=== PATIENT | male | born 1940 | race Caucasian/White ===

== ENCOUNTER → 2018-05-13 | Outpatient (CLI) | payer MEDICARE ==
[2018-05-13] MEDS: IOHEXOL 300 MG/ML 10ML VIAL. IV ONE (15:29)
--- NOTE | 2018-05-13 17:19 | KCIC ---
Chest CT with and without contrast Clinical indications: Lung nodule. COPD. Shortness of air. TECHNIQUE: Noncontrast helical CT scanning of the chest was performed. After IV infusion of 95 cc of Omnipaque 300, repeat helical CT scanning of the chest was performed. PQRS compliance Statement One or more of the following individualized dose reduction techniques were utilized for this study: 1. Automated exposure control 2. Adjustment of the mA and/or kV according to patient size 3. Use of iterative reconstruction technique COMPARISON: May 21, 2016. FINDINGS: Calcified atheromatous disease of the thoracic aorta is seen. No focal aneurysmal dilatation or dissection is evident. Sternotomy is evident. Postoperative changes of the aortic valve are seen. The heart size is normal and no pericardial effusion is seen. Calcified atheromatous disease of the coronary arteries is seen. No enlarged thoracic lymphadenopathy is evident. Calcified lymph nodes are seen within the mediastinum and right hilum due to old granulomatous disease. Calcified pleural plaques are seen posteriorly on the right side. This could be related to asbestos exposure or secondary to previous surgery or trauma. There is a round right lower lobe lung consolidation with a prominent calcification. This was seen previously and measures just under 6 cm in greatest dimension. It is unchanged in size. This is consistent with round atelectasis. Right apical scarring is stable. Nodular scarring of the right lung base has not changed significantly. Mild left apical scarring is stable. There is a new focus of round lung infiltrate within the posterior basal segment of the left lower lobe. It measures 5.5 cm transversely. Calcifications are seen within it. There is another lobe of round infiltrate seen extending anteriorly along the pleura in the left lower lobe in the same area which measures about 4.1 cm. These areas may represent round atelectasis but infiltrate such as pneumonia or neoplasia are in the differential diagnosis. There is a small loculated pleural effusion now present within the posterior lateral left costophrenic angle. No pneumothorax is seen. The proximal bronchial tree is patent. No adrenal mass is evident. No osteolytic process is evident. IMPRESSION: No change in round atelectasis of the right lower lobe. There is new finding of a bilobed pleural-based consolidative lung infiltrate within the posterior lateral aspect of the left lower lobe. There is a small loculated pleural effusion here. There is parietal and visceral pleural enhancement here. Therefore, this is consistent with a small complex pleural fluid collection or exudate. The infiltrates could represent additional areas of round atelectasis but due to the new appearance, pneumonia or neoplasm need to be considered. Recommend a PET/CT for further evaluation. Calcified atheromatous disease of coronary arteries. Normal heart size. Electronically signed by: Manan Mornoe MD (05/13/2018 5:16 PM) [facility]
== END | disposition home or self-care (01) ==
LOC: KCIC CT 14:26
PROVIDERS: ATTEND Family Medicine
DX: J44.9 Chronic obstructive pulmonary disease, unspecified (principal); I25.10 Atherosclerotic heart disease of native coronary artery without angina pectoris; J90 Pleural effusion, not elsewhere classified; I10 Essential (primary) hypertension; E78.5 Hyperlipidemia, unspecified; R91.8 Other nonspecific abnormal finding of lung field; Z95.0 Presence of cardiac pacemaker; Z95.1 Presence of aortocoronary bypass graft
CPT/HCPCS: 71270; Q9967

== ENCOUNTER → 2018-06-20 | Outpatient (CLI) | payer MEDICARE ==
--- NOTE | 2018-06-20 15:39 | RAD ---
CT CHEST WO CONTRAST Indication: Lung nodule Technique: Noncontrast CT imaging was performed of the chest, multiplanar reconstruction images submitted. One or more of the following individualized dose reduction techniques were utilized for this examination: 1. Automated exposure control 2. Adjustment of the mA and/or kV according to patient size 3. Use of iterative reconstruction technique. Comparison: May 13, 2018 Findings: There is again very small pleural effusion at the left lung base which is probably slightly loculated, slightly decreased in size. There is adjacent subpleural density associated with some subtle calcification, greatest dimension about 3 cm AP by 5 cm transverse overall similar in appearance. There is similar fibrotic change of the right hemithorax. There is again calcified pleural plaque as well as peripheral subpleural density extending to the pleural surface of the right lower lobe with associated internal focus of calcification overall stable, about 5 cm transverse by 3.3 cm AP. There is centrilobular emphysema. There is no pneumothorax. There has been median sternotomy. There is coronary calcification. There are calcified mediastinal nodes. There is no new abnormality of the limited visualized abdominal visceral organs. IMPRESSION: 1. There is persistent peripheral left lower lobe density abutting the pleural surface and adjacent small likely slightly loculated pleural effusion of the left lung base which is somewhat smaller. There could be component of new round atelectasis although continued surveillance such as in 4 months or PET/CT is recommended. 2. Findings on the right are similar, calcified pleural plaques and likely round atelectasis with associated calcification. There is again centrilobular emphysema. 3. There is coronary calcification. Electronically signed by: David Cai MD (06/20/2018 3:35 PM) [facility]
== END | disposition home or self-care (01) ==
LOC: CT 10:33
PROVIDERS: ATTEND Internal Medicine Pulmonary Disease
DX: J43.2 Centrilobular emphysema (principal); I25.10 Atherosclerotic heart disease of native coronary artery without angina pectoris; J90 Pleural effusion, not elsewhere classified; I10 Essential (primary) hypertension; E78.5 Hyperlipidemia, unspecified; Z95.0 Presence of cardiac pacemaker
CPT/HCPCS: 71250

== ENCOUNTER → 2018-09-16 | Outpatient (CLI) | payer MEDICARE ==
--- NOTE | 2018-09-16 16:13 | RAD ---
Examination: CT CHEST WO CONTRAST History: ABNORMAL CT, INCREASED SHORTNESS OF BREATH Comparison/Correlation: 05/21/2016 CT chest with contrast, 04/23/2018 CT chest without contrast, 06/20/2018 CT chest without contrast Findings: Axial images of chest were obtained without contrast. Sagittal and coronal reformatted images provided. Sternal wires and mediastinal clips noted. Centrilobular emphysema seen. Nonenlarged upper thoracic mediastinal lymph nodes are present. Calcified right paratracheal and precarinal lymph nodes are present. Subcarinal lymph node is present but not enlarged. Posterior basilar pleural thickening noted. Left costophrenic sulcus pleural effusion and atelectasis noted. Right costophrenic sulcus loculated pleural collection is new since the prior exam of 06/20/2008. Posterior basilar pleural thickening and high density which may represent calcification is again seen. Findings of round atelectasis with a calcified nodule produces described again seen. Right pleural effusion which tracks along the major and minor fissure posteriorly is new in the interval. Partially visualized upper abdomen is unremarkable. Impression: Interval development of small right basilar effusion which tracks along the course of the major and minor fissure. No significant change in pulmonary aeration otherwise. Electronically signed by: Oh Brown MD (09/16/2018 3:57 PM) [id number]
== END | disposition home or self-care (01) ==
LOC: CT 10:57
PROVIDERS: ATTEND Internal Medicine Pulmonary Disease
DX: J43.2 Centrilobular emphysema (principal); J90 Pleural effusion, not elsewhere classified; J98.11 Atelectasis
CPT/HCPCS: 71250

== ENCOUNTER → 2018-10-14 | Outpatient (CLI) | payer MEDICARE | END | disposition home or self-care (01) | LOC: LAB 09:14 | PROVIDERS: ATTEND Internal Medicine Pulmonary Disease | DX: R06.02 Shortness of breath (principal) | CPT/HCPCS: 36415; 85379 ==

== ENCOUNTER → 2018-10-17 | Outpatient (CLI) | payer MEDICARE ==
[~2018-10-17] MED LIST: IOHEXOL 350 MG/ML 100 ML VIAL. IV ONE
[2018-10-17 12:08] LABS: CALCIUM 8.9 mg/dL (8.5-10.1); CREATININE 1.4 mg/dL (0.7-1.3); GFR 49.1
--- NOTE | 2018-10-17 12:44 | RAD ---
EXAM: CT chest with contrast - pulmonary embolus protocol CLINICAL HISTORY: Shortness of air, elevated D-dimer COMPARISON: 09/16/2018, 06/20/2018 TECHNIQUE: CT of the chest following the administration of intravenous contrast during the pulmonary arterial phase. Axial, coronal and sagittal reformatted images were generated including MIP images. ---PQRS compliance statement - One or more of the following individualized dose reduction techniques were utilized for this study: 1. Automated exposure control 2. Adjustment of the mA and/or kV according to patient size 3. Use of iterative reconstruction technique--- FINDINGS: CHEST: Diagnostic quality: Suboptimal. Pulmonary emboli: No pulmonary emboli to the level of the proximal subsegmental branches. More peripheral vessels are not well assessed. Right heart strain: None Pulmonary arteries: Normal in caliber. Mild cardiomegaly. Coronary artery calcifications are seen. No pericardial effusion. Aortic calcifications are seen. A few prominent mediastinal and hilar lymph nodes are seen, possibly reactive. In general these are grossly stable to prior CT 09/08/2018. No axillary lymphadenopathy. Small right pleural effusion is seen. Right-sided pleural-based calcifications, likely from prior pleurodesis. Associated right fissural fluid is stable. Linear reticular opacities in the lower lobes bilaterally with wedge-shaped parenchymal airspace opacities likely consolidation or atelectasis. Bilateral emphysematous changes are seen. Visualized Upper abdomen: Upper abdomen is unremarkable. Bones: Degenerative changes of the spine are seen. Changes of median sternotomy are seen. IMPRESSION: 1. Mildly suboptimal contrast bolus timing. Within these constraints, no definite pulmonary emboli to the level of the proximal subsegmental branches. Distal evaluation is limited. 2. Parenchymal opacities bilaterally are grossly stable. The majority of these have associated pleural abnormality and round atelectasis is a consideration however alternatively consolidative process is not excluded. 3. Trace right pleural effusion with fissural fluid, stable. 4. Bilateral emphysematous changes are again seen. 5. Mild cardiomegaly with extensive coronary artery calcifications. Electronically signed by: Darrin Eid MD (10/17/2018 12:40 PM) [facility]
== END | disposition home or self-care (01) ==
LOC: CT 11:17
PROVIDERS: ATTEND Internal Medicine Pulmonary Disease
DX: J98.11 Atelectasis (principal); J43.9 Emphysema, unspecified; I51.7 Cardiomegaly; I25.10 Atherosclerotic heart disease of native coronary artery without angina pectoris; R91.8 Other nonspecific abnormal finding of lung field
CPT/HCPCS: 36415; 71275; 80048; Q9967

== ENCOUNTER → 2021-07-31 | Outpatient (CLI) | payer MEDICARE ==
--- NOTE | 2021-07-31 13:28 | RAD ---
EXAM: RENAL ULTRASOUND CLINICAL HISTORY: Chronic kidney disease COMPARISON: None available. TECHNIQUE: Ultrasound examination of the bilateral kidneys and urinary bladder was performed. FINDINGS: The right kidney measures 11.6 x 5.6 x 5.9 cm . The left kidney measures 10.1 x 5.8 x 5.9 cm. Multipl e cystic structures identified in the bilateral kidneys with the largest measuring 3.4 cm in the righ t kidney. No evidence of hydronephrosis. Urinary bladder is mildly distended. IMPRESSION: 1. Bilateral renal cysts. Electronically signed by: Sebastian Vidal MD (07/31/2021 1:26 PM) [id number]
== END ==
LOC: US 11:01
PROVIDERS: ATTEND Family Medicine
DX: N28.1 Cyst of kidney, acquired (principal); N32.89 Other specified disorders of bladder; N18.32 Chronic kidney disease, stage 3b
CPT/HCPCS: 76770

== ENCOUNTER 2022-01-20 13:16 | Inpatient (IN) | payer MEDICARE ==
[~2022-01-20] VITALS: Ht 193 cm; Wt 106.8 kg
[2022-01-20 13:53] LABS: BASO % 0 % (0-3); EOS % 0 % (0-3); HEMATOCRIT 34.7 % (39.0-53.0); HEMOGLOBIN 11.5 g/dL (13.0-17.5); LYMPH # 1.1 x10^3/uL (1.0-4.8); LYMPH % 7 % (24-48); MEAN CORPUSCULAR HEMOGLOBIN 30 pg (25-35); MEAN CORPUSCULAR HGB CONC 33 g/dL (31-37); MEAN CORPUSCULAR VOLUME 91 fL (79-100); MONO # 0.7 x10^3/uL (0.0-1.1); MONO % 4 % (0-9); NEUT # 14.9 x10^3/uL (1.8-7.7); NEUT % 89 % (31-73); PLATELET COUNT 166 x10^3/uL (140-400); RED BLOOD COUNT 3.81 x10^6/uL (4.30-5.70); RED CELL DISTRIBUTION WIDTH 14.8 % (11.5-14.5); WHITE BLOOD COUNT 16.8 x10^3/uL (4.0-11.0)
[2022-01-20 14:09] LABS: CALCIUM 8.6 mg/dL (8.5-10.1); CREATININE 1.9 mg/dL (0.7-1.3); GFR 34.2; POTASSIUM 4.7 mmol/L (3.5-5.1)
[2022-01-20 14:15] LABS: ALBUMIN 3.8 g/dL (3.4-5.0); ALBUMIN/GLOBULIN RATIO 1.4 (1.0-1.7); MAGNESIUM 1.8 mg/dL (1.8-2.4); TOTAL PROTEIN 6.6 g/dL (6.4-8.2)
[2022-01-20] MEDS: MORPHINE SULFATE 2 MG/ML INJ. IV/SQ PRN ×2 (14:15→15:13)
--- NOTE | 2022-01-20 14:15 | RAD ---
EXAM: XR CHEST 1V 01/20/2022 1:39 PM CLINICAL INDICATION: Cough COMPARISON: CT chest 10/17/2018 TECHNIQUE: AP upright view the chest FINDINGS: There is a new dual-lead pacemaker. There are changes of median sternotomy. The heart is m ildly enlarged. There are airspace opacities in the right greater than left lung base, similar to fin dings on CT chest 10/17/2018. There is a large calcified granuloma in the right lower lobe. Unchanged small pleural effusions or pleural thickening. No pneumothorax. IMPRESSION: Number Airspace opacities in the mid and lower lungs. This is similar to CT chest 10/17/2018 and may b e due to scarring or atelectasis. An acute superimposed process cannot be excluded. 2. Unchanged small pleural effusions or pleural thickening. Electronically signed by: Magnolia Kumar MD (01/20/2022 2:13 PM) [id number]
--- NOTE | 2022-01-20 14:17 | RAD ---
EXAM: XR LT HIP (WITH OR WITHOUT PELVIS) 2 VIEWS 01/20/2022 1:39 PM CLINICAL INDICATION: Pain, no injury COMPARISON: None TECHNIQUE: AP view of the pelvis and AP and frog-leg lateral view of the left hip FINDINGS: No acute fracture. Alignment is normal. There is mild bilateral hip joint space narrowing. No pubic symphysis or sacroiliac joint widening. The mild lumbar degenerative disc disease. IMPRESSION: Mild degenerative joint disease of the hips. No displaced fracture Electronically signed by: Magnolia Kumar MD (01/20/2022 2:15 PM) [id number]
[2022-01-20 14:21] LABS: % LYMPHS 8 % (24-48); % MONOS 5 % (0-10); % SEGS 87 % (35-66)
[2022-01-20 14:22] LABS: ANISOCYTOSIS SLIGHT; PLT ESTIMATE ADEQUATE (ADEQUATE)
--- NOTE | 2022-01-20 14:27 | PHYS DOC ---
Past Medical History Past Surgical History: Coronary Bypass Surgery, Pacemaker General Adult EDM: Chief Complaint: SHORTNESS OF BREATH HPI: HPI: Patient is a 81 year old male with history of COPD currently on oxygen 2 L, CAD, pacemaker, kidney disease, presenting to the ED today complaining of cough, shortness of breath, nasal congestion, symptoms of been going on for a couple days. Patient is not specific about how long. He is also complaining of bilateral lower extremity swelling worse on the right side for couple days. He states he was seen by the PCP a couple days ago and was put on furosemide. He states he has not started taking the medications. Denies any fever. Patient is also complaining of 6 out of 10 left hip pain, symptoms have been going on for couple days. Denies any known injury. Describes the pain as sharp and intermittent worse getting in and out of bed. Rates the pain at 6 out of 10. Review of Systems: Review of Systems: Constitutional: Denies fever or chills. [] Eyes: Denies change in visual acuity. [] HENT: Reports nasal congestion Respiratory: Reports cough, shortness of breath Cardiovascular: Denies chest pain or edema. [] GI: Denies abdominal pain, nausea, vomiting, bloody stools or diarrhea. [] : Denies dysuria. [] Musculoskeletal: Reports left hip pain, bilateral lower extremity swelling Integument: Denies rash. [] Neurologic: Denies headache, focal weakness or sensory changes. [] Psychiatric: Denies depression or anxiety. [] Heart Score: C/O Chest Pain: N/A Risk Factors: Risk Factors: DM, Current or recent (<one month) smoker, HTN, HLP, family history of CAD, obesity. Risk Scores: Score 0 - 3: 2.5% MACE over next 6 weeks - Discharge Home Score 4 - 6: 20.3% MACE over next 6 weeks - Admit for Clinical Observation Score 7 - 10: 72.7% MACE over next 6 weeks - Early Invasive Strategies Current Medications: Current Medications Medications (Trade) Dose Ordered Sig/Thanh Start Time Stop Time Status Last Admin Dose Admin Morphine Sulfate (Morphine Sulfate) 2 mg PRN Q15MIN PRN 01/20/22 13:45 01/21/22 13:44 01/20/22 14:15 2 MG Allergies: Allergies: Allergies Coded Allergies Type Severity Reaction Last Updated Verified naproxen Allergy Intermediate rash 05/21/16 Yes Physical Exam: PE: Constitutional: Well developed, well nourished, no acute distress, non-toxic appearance. [] HENT: Normocephalic, atraumatic, bilateral external ears normal, oropharynx moist, no oral exudates, patient sounds congested nasally Eyes: PERRLA, EOMI, conjunctiva normal, no discharge. [] Neck: Normal range of motion, no tenderness, supple, no stridor. [] Cardiovascular:Old healed surgical incision noted midline chest from open heart surgery heart, pacemaker left upper chest rate regular rhythm Lungs & Thorax: Coarse lung sounds Abdomen: Bowel sounds normal, soft, no tenderness, no masses, no pulsatile masses. [] Skin: Warm, dry, no erythema, no rash. [] Back: No tenderness, no CVA tenderness. [] Extremities: No tenderness, no cyanosis, no clubbing, ROM intact, +2 right lower extremity edema, +1 left lower extremity edema, negative Homans' sign bilaterally Neurologic: Alert and oriented X 3, normal motor function, normal sensory function, no focal deficits noted. [] Psychologic: Affect normal, judgement normal, mood normal. [] Current Patient Data: Labs: Laboratory Tests Test 01/20/22 13:40 White Blood Count 16.8 x10^3/uL (4.0-11.0) H Red Blood Count 3.81 x10^6/uL (4.30-5.70) L Hemoglobin 11.5 g/dL (13.0-17.5) L Hematocrit 34.7 % (39.0-53.0) L Mean Corpuscular Volume 91 fL (79-100) Mean Corpuscular Hemoglobin 30 pg (25-35) Mean Corpuscular Hemoglobin Concent 33 g/dL (31-37) Red Cell Distribution Width 14.8 % (11.5-14.5) H Platelet Count 166 x10^3/uL (140-400) Neutrophils (%) (Auto) 89 % (31-73) H Lymphocytes (%) (Auto) 7 % (24-48) L Monocytes (%) (Auto) 4 % (0-9) Eosinophils (%) (Auto) 0 % (0-3) Basophils (%) (Auto) 0 % (0-3) Neutrophils # (Auto) 14.9 x10^3/uL (1.8-7.7) H Lymphocytes # (Auto) 1.1 x10^3/uL (1.0-4.8) Monocytes # (Auto) 0.7 x10^3/uL (0.0-1.1) Eosinophils # (Auto) 0.0 x10^3/uL (0.0-0.7) Basophils # (Auto) 0.0 x10^3/uL (0.0-0.2) Platelet Estimate Pending Sodium Level 138 mmol/L (136-145) Potassium Level 4.7 mmol/L (3.5-5.1) Chloride Level 101 mmol/L (98-107) Carbon Dioxide Level 28 mmol/L (21-32) Anion Gap 9 (6-14) Blood Urea Nitrogen 34 mg/dL (8-26) H Creatinine 1.9 mg/dL (0.7-1.3) H Estimated GFR (Cockcroft-Gault) 34.2 BUN/Creatinine Ratio 18 (6-20) Glucose Level 119 mg/dL (70-99) H Calcium Level 8.6 mg/dL (8.5-10.1) Magnesium Level 1.8 mg/dL (1.8-2.4) Total Bilirubin 1.0 mg/dL (0.2-1.0) Aspartate Amino Transferase (AST) 23 U/L (15-37) Alanine Aminotransferase (ALT) 21 U/L (16-63) Alkaline Phosphatase 98 U/L (46-116) Troponin I High Sensitivity 37 ng/L (4-75) Total Protein 6.6 g/dL (6.4-8.2) Albumin 3.8 g/dL (3.4-5.0) Albumin/Globulin Ratio 1.4 (1.0-1.7) Laboratory Tests 01/20/22 13:40 Laboratory Tests 01/20/22 13:40 Vital Signs: Vital Signs Date Time Temp Pulse Resp B/P (MAP) Pulse Ox O2 Delivery O2 Flow Rate FiO2 01/20/22 14:15 20 95 Nasal Cannula 01/20/22 13:36 98.4 84 142/65 (90) 3.0 98.4 EKG: EKG: [] Radiology/Procedures: Radiology/Procedures: []PROCEDURE: PORTABLE CHEST 1V EXAM: XR CHEST 1V 01/20/2022 1:39 PM CLINICAL INDICATION: Cough COMPARISON: CT chest 10/17/2018 TECHNIQUE: AP upright view the chest FINDINGS: There is a new dual-lead pacemaker. There are changes of median sternotomy. The heart is mildly enlarged. There are airspace opacities in the right greater than left lung base, similar to findings on CT chest 10/17/2018. There is a large calcified granuloma in the right lower lobe. Unchanged small pleural effusions or pleural thickening. No pneumothorax. IMPRESSION: Number Airspace opacities in the mid and lower lungs. This is similar to CT chest 10/17/2018 and may be due to scarring or atelectasis. An acute superimposed process cannot be excluded. 2. Unchanged small pleural effusions or pleural thickening. Electronically signed by: Magnolia Kumar MD (01/20/2022 2:13 PM) [id number] DICTATED and SIGNED BY: MAGNOLIA KUMAR MD DATE: 01/20/22 1409 Course & Med Decision Making: Course & Med Decision Making Pertinent Labs and Imaging studies reviewed. (See chart for details) This is a 81-year-old male patient presented to the ED today with cough, shortness of breath, nasal congestion, left hip pain, bilateral lower extremity swelling, symptoms for couple days. Vitals on arrival to the ED temperature 98.3, heart rate 84, respiration 20 on 3 L of oxygen, O2 sats 96%, blood pressure 142/65 CBC with a WBC of 16.4, hemoglobin 11.5 with hematocrit of 34.7, CMP with creatinine of 1.9, BUN 34, history of chronic kidney disease. BNP 6763 Chest x-ray could not rule out pneumonia, noted for pleural effusion Patient was given furosemide, Rocephin. Spoke with Dr. Yost who accepted patient for admission, routine consult placed for cardiology, ceo & founder. Rakesh Disclaimer: Rakesh Disclaimer: This electronic medical record was generated, in whole or in part, using a voice recognition dictation system. Departure Departure Impression: Primary Impression: CHF exacerbation Qualified Codes: I50.9 - Heart failure, unspecified Additional Impressions: Chronic renal failure Qualified Codes: N18.9 - Chronic kidney disease, unspecified Bilateral pneumonia Qualified Codes: J18.9 - Pneumonia, unspecified organism Pleural effusion Disposition: ADMITTED INPATIENT Condition: STABLE Referrals: RAVEN ELIZABETH (PCP) BERTHA REYES [employer]SEM[employer]ER FINGER BUFFS January 20, 2022 14:27
[2022-01-20] MEDS ORDERED: FUROSEMIDE 40 MG/4 ML VIAL. ONE (15:14)
[2022-01-20] MEDS ORDERED: cefTRIAXone IV Push 1 GM VIAL. IVP ONE (15:15)
--- NOTE | 2022-01-20 15:26 | PDOC1 ---
History and Physical Date of Admission Date of Admission DATE: 01/20/22 TIME: 15:23 Identification/Chief Complaint Chief Complaint Shortness of breath Source Source: Patient History of Present Illness History of Present Illness Patient is a 81-year-old male with past medical history COPD on 2 L, CAD with stents, CABG, who presents to the ED with complaints of acute on chronic shortness of breath for the past few days. He reports associated cough and congestion. States he was seen by his PCP recently for bilateral leg swelling and placed on Lasix, but states he has not filled this medication. States it has been several years since his last COPD exacerbation. Labs on admission showed WBC 16.8, hemoglobin 11.5, hematocrit 35.7, BUN 34, creatinine 1.9, CBG 119, troponin 37, BNP 6763. Chest x-ray in the ED showed airspace opacities in the mid and lower lungs, similar to previous CT in 2019. Due to some complaints of left hip pain, 6/10, and x-ray of his hip showed mild degenerative joint dis ease. He denies any falls or trauma. He received 1 g Rocephin in the ED. Patient's been admitted for further medical management. Past Medical History Past Medical History COPD on 2 L, CAD with stents, CABG, A. fib on Eliquis, HTN, CKD 3 Past Surgical History Past Surgical History CABG, cardiac stents, left knee surgery Family History Family History CAD, CVA, [place] Family History: Coronary Artery Disease Social History Smoke: Quit ALCOHOL: occassional Drugs: None Current Problem List Problem List Problems Medical Problems: (1) Bilateral pneumonia Status: Acute (2) CHF exacerbation Status: Acute (3) Chronic renal failure Status: Acute (4) Pleural effusion Status: Acute Current Medications Current Medications Current Medications Morphine Sulfate (Morphine Sulfate) 2 mg PRN Q15MIN PRN IV/SQ PAIN GREATER THAN 3/10 Last administered on 01/20/22at 15:13; Start 01/20/22 at 13:45; Stop 01/21/22 at 13:44 Furosemide (Lasix) 40 mg DAILY IVP ; Start 01/21/22 at 09:00 Ceftriaxone Sodium (Rocephin) 1 gm 1X ONCE IVP ; Start 01/20/22 at 15:15; Stop 01/20/22 at 15:16; Status DC Ondansetron HCl (Zofran) 4 mg PRN Q8HRS PRN IVP NAUSEA/VOMITING; Start 01/20/22 at 15:30; Stop 01/21/22 at 15:29; Status UNV Fentanyl Citrate (Fentanyl 2ml Vial) 50 mcg PRN Q1HR PRN IVP PAIN; Start 01/20/22 at 15:30; Stop 01/21/22 at 15:29; Status UNV Acetaminophen (Tylenol) 650 mg PRN Q4HRS PRN PO FEVER > 100.3'F; Start 01/20/22 at 15:30; Stop 01/21/22 at 15:29; Status UNV Active Scripts Active Reported No Known Medications Prior To Admisstion (Info) Each 1 Each Allergies Allergies: Coded Allergies: naproxen (Verified Allergy, Intermediate, rash, 05/21/16) mild rash ROS Review of System GENERAL: No history of weight change, weakness or fevers. SKIN: No bruising, hair changes or rashes. EYES: No blurred, double or loss of vision. NOSE AND THROAT: No history of nosebleeds, hoarseness or sore throat. HEART: Denies chest pain, denies palpitations. LUNGS: Shortness of breath and cough. Denies hemoptysis. GASTROINTESTINAL: Denies nausea, vomiting, abdominal pain. GENITOURINARY: Denies dysuria, frequency, urgency, hematuria. NEUROLOGIC: Denies history of numbness, tingling, tremor or weakness. PSYCHIATRIC: Denies anxiety, denies depression. ENDOCRINE: No history of heat or cold intolerance, polyuria or polydipsia. EXTREMITIES: Bilateral leg swelling, left hip pain. Denies muscle weakness or stiffness. Physical Exam Physical Exam General: Alert, Oriented X3, Cooperative, mild distress HEENT: Atraumatic, EOMI Lungs: Bilateral wheezing, bibasilar rales Heart: RRR, systolic murmur, midline sternotomy scar Cardiovascular: S1, S2 Abdomen: Normal bowel sounds, Soft, No tenderness Extremities: +1 bilateral leg edema Skin: No breakdown, No significant lesion Neuro: Normal speech, Sensation intact Psych/Mental Status: Mental status NL, Mood NL Vitals Vitals Vital Signs Date Time Temp Pulse Resp B/P (MAP) Pulse Ox O2 Delivery O2 Flow Rate FiO2 01/20/22 15:13 16 3 Nasal Cannula 01/20/22 13:36 98.4 84 142/65 (90) 3.0 98.4 Labs Labs Laboratory Tests Test 01/20/22 13:40 White Blood Count 16.8 x10^3/uL (4.0-11.0) Red Blood Count 3.81 x10^6/uL (4.30-5.70) Hemoglobin 11.5 g/dL (13.0-17.5) Hematocrit 34.7 % (39.0-53.0) Mean Corpuscular Volume 91 fL (79-100) Mean Corpuscular Hemoglobin 30 pg (25-35) Mean Corpuscular Hemoglobin Concent 33 g/dL (31-37) Red Cell Distribution Width 14.8 % (11.5-14.5) Platelet Count 166 x10^3/uL (140-400) Neutrophils (%) (Auto) 89 % (31-73) Lymphocytes (%) (Auto) 7 % (24-48) Monocytes (%) (Auto) 4 % (0-9) Eosinophils (%) (Auto) 0 % (0-3) Basophils (%) (Auto) 0 % (0-3) Neutrophils # (Auto) 14.9 x10^3/uL (1.8-7.7) Lymphocytes # (Auto) 1.1 x10^3/uL (1.0-4.8) Monocytes # (Auto) 0.7 x10^3/uL (0.0-1.1) Eosinophils # (Auto) 0.0 x10^3/uL (0.0-0.7) Basophils # (Auto) 0.0 x10^3/uL (0.0-0.2) Segmented Neutrophils % 87 % (35-66) Lymphocytes % 8 % (24-48) Monocytes % 5 % (0-10) Platelet Estimate Adequate (ADEQUATE) Anisocytosis Slight Sodium Level 138 mmol/L (136-145) Potassium Level 4.7 mmol/L (3.5-5.1) Chloride Level 101 mmol/L (98-107) Carbon Dioxide Level 28 mmol/L (21-32) Anion Gap 9 (6-14) Blood Urea Nitrogen 34 mg/dL (8-26) Creatinine 1.9 mg/dL (0.7-1.3) Estimated GFR (Cockcroft-Gault) 34.2 BUN/Creatinine Ratio 18 (6-20) Glucose Level 119 mg/dL (70-99) Calcium Level 8.6 mg/dL (8.5-10.1) Magnesium Level 1.8 mg/dL (1.8-2.4) Total Bilirubin 1.0 mg/dL (0.2-1.0) Aspartate Amino Transf (AST/SGOT) 23 U/L (15-37) Alanine Aminotransferase (ALT/SGPT) 21 U/L (16-63) Alkaline Phosphatase 98 U/L (46-116) Troponin I High Sensitivity 37 ng/L (4-75) QJ-Duz-Q-Type Natriuretic Peptide 6763 pg/mL (0-449) Total Protein 6.6 g/dL (6.4-8.2) Albumin 3.8 g/dL (3.4-5.0) Albumin/Globulin Ratio 1.4 (1.0-1.7) Laboratory Tests Test 01/20/22 13:40 White Blood Count 16.8 x10^3/uL (4.0-11.0) Red Blood Count 3.81 x10^6/uL (4.30-5.70) Hemoglobin 11.5 g/dL (13.0-17.5) Hematocrit 34.7 % (39.0-53.0) Mean Corpuscular Volume 91 fL (79-100) Mean Corpuscular Hemoglobin 30 pg (25-35) Mean Corpuscular Hemoglobin Concent 33 g/dL (31-37) Red Cell Distribution Width 14.8 % (11.5-14.5) Platelet Count 166 x10^3/uL (140-400) Neutrophils (%) (Auto) 89 % (31-73) Lymphocytes (%) (Auto) 7 % (24-48) Monocytes (%) (Auto) 4 % (0-9) Eosinophils (%) (Auto) 0 % (0-3) Basophils (%) (Auto) 0 % (0-3) Neutrophils # (Auto) 14.9 x10^3/uL (1.8-7.7) Lymphocytes # (Auto) 1.1 x10^3/uL (1.0-4.8) Monocytes # (Auto) 0.7 x10^3/uL (0.0-1.1) Eosinophils # (Auto) 0.0 x10^3/uL (0.0-0.7) Basophils # (Auto) 0.0 x10^3/uL (0.0-0.2) Segmented Neutrophils % 87 % (35-66) Lymphocytes % 8 % (24-48) Monocytes % 5 % (0-10) Platelet Estimate Adequate (ADEQUATE) Anisocytosis Slight Sodium Level 138 mmol/L (136-145) Potassium Level 4.7 mmol/L (3.5-5.1) Chloride Level 101 mmol/L (98-107) Carbon Dioxide Level 28 mmol/L (21-32) Anion Gap 9 (6-14) Blood Urea Nitrogen 34 mg/dL (8-26) Creatinine 1.9 mg/dL (0.7-1.3) Estimated GFR (Cockcroft-Gault) 34.2 BUN/Creatinine Ratio 18 (6-20) Glucose Level 119 mg/dL (70-99) Calcium Level 8.6 mg/dL (8.5-10.1) Magnesium Level 1.8 mg/dL (1.8-2.4) Total Bilirubin 1.0 mg/dL (0.2-1.0) Aspartate Amino Transf (AST/SGOT) 23 U/L (15-37) Alanine Aminotransferase (ALT/SGPT) 21 U/L (16-63) Alkaline Phosphatase 98 U/L (46-116) Troponin I High Sensitivity 37 ng/L (4-75) IB-Oxd-G-Type Natriuretic Peptide 6763 pg/mL (0-449) Total Protein 6.6 g/dL (6.4-8.2) Albumin 3.8 g/dL (3.4-5.0) Albumin/Globulin Ratio 1.4 (1.0-1.7) Images Images PATIENT: CONRADO VELIZ GACCOUNT: [id number] : 1940 LOCATION: ER AGE: 81 SEX: M EXAM STATUS: REG ER ORD. PHYSICIAN: BERTHA REYES IT TRAINING SPECIALIST REASON: cough PROCEDURE: PORTABLE CHEST 1V EXAM: XR CHEST 1V 01/20/2022 1:39 PM CLINICAL INDICATION: Cough COMPARISON: CT chest 10/17/2018 TECHNIQUE: AP upright view the chest FINDINGS: There is a new dual-lead pacemaker. There are changes of median sternotomy. The heart is mildly enlarged. There are airspace opacities in the right greater than left lung base, similar to findings on CT chest 10/17/2018. There is a large calcified granuloma in the right lower lobe. Unchanged small pleural effusions or pleural thickening. No pneumothorax. IMPRESSION: Number Airspace opacities in the mid and lower lungs. This is similar to CT chest 10/17/2018 and may be due to scarring or atelectasis. An acute superimposed process cannot be excluded. 2. Unchanged small pleural effusions or pleural thickening. PATIENT: CONRADO VELIZ GACCOUNT: [id number] : 1940 LOCATION: ER AGE: 81 SEX: M EXAM STATUS: REG ER ORD. PHYSICIAN: BERTHA REYES APRN REASON: pain no injury PROCEDURE: HIP LEFT 2V WITH PELVIS EXAM: XR LT HIP (WITH OR WITHOUT PELVIS) 2 VIEWS 01/20/2022 1:39 PM CLINICAL INDICATION: Pain, no injury COMPARISON: None TECHNIQUE: AP view of the pelvis and AP and frog-leg lateral view of the left hip FINDINGS: No acute fracture. Alignment is normal. There is mild bilateral hip joint space narrowing. No pubic symphysis or sacroiliac joint widening. The mild lumbar degenerative disc disease. IMPRESSION: Mild degenerative joint disease of the hips. No displaced fracture VTE Prophylaxis Ordered VTE Prophylaxis Devices: No VTE Pharmacological Prophylaxi: Yes Assessment/Plan Assessment/Plan Community-acquired pneumonia, possible gram-negative or possible gram-positive organism Acute on chronic respiratory failure with hypoxia Acute COPD exacerbation Acute CHF exacerbation CKD 3b Elevated BNP and likely CHF exacerbation Degenerative joint disease of left hip Plan: Patient received Rocephin and Lasix in the ED We will continue treatment with Rocephin IV and doxycycline IV Solu-Medrol every 12 hours, then transition to oral prednisone. Scheduled DuoNeb and consultation to pulmonology Will obtain echocardiogram and consider consultation to cardiology IV Lasix Will provide gentle hydration and follow renal function Pain management for DJD left hip Resume home medications FEN - Cardiac diet PPX - Eliquis FULL CODE/patient names his daughter (Christine Veliz) as surrogate decision- maker Dispo - inpatient for above Justifications for Admission Other Justification PITTS,TANYA A MD January 20, 2022 15:26
[2022-01-20] MEDS ORDERED: ONDANSETRON PF 4 MG/2 ML VIAL. IVP PRN ×2 (15:30→16:15)
[2022-01-20] MEDS ORDERED: ACETAMINOPHEN 325 MG TABLET. PO PRN ×2 (15:30→16:15)
[2022-01-20] MEDS ORDERED: fentaNYL PF VIAL 100 MCG/2 ML VIAL IVP PRN (15:30)
[2022-01-20 15:54] LABS: INFLUENZA A PATIENT NEGATIVE (NEGATIVE); INFLUENZA B PATIENT NEGATIVE (NEGATIVE)
[2022-01-20 16:09] LABS: BACTERIA,URINE 0 /HPF (0-FEW)
[2022-01-20 16:10] LABS: HYALINE CASTS, URINE MODERATE /HPF
[2022-01-20] MEDS ORDERED: MAGNESIUM HYDROXIDE 2,400 MG/30 ML ORAL.SUSP. PO PRN (16:15)
[2022-01-20] MEDS ORDERED: MAG HYDROX/ALUMINUM HYD/SIMETH 30 ML ORAL.SUSP PO PRN (16:15)
[2022-01-20] MEDS ORDERED: CALCIUM CARBONATE 500 MG TAB.CHEW PO PRN (16:15)
[2022-01-20] MEDS ORDERED: MORPHINE SULFATE 2 MG/ML INJ. IV PRN (16:15)
[2022-01-20] MEDS ORDERED: methylPREDNISolone SOD SUCC PF 40 MG/ML VIAL. IV SCH (16:15)
[2022-01-20] MEDS ORDERED: BENZONATATE 100 MG CAPSULE. PO PRN (16:30)
[2022-01-20] MEDS ORDERED: METO-239 PO (17:21)
[2022-01-20] MEDS ORDERED: FURO40TA4 PO (17:21)
[2022-01-20] MEDS ORDERED: UMEC1DIS INH (17:21)
[2022-01-20] MEDS ORDERED: ALBU2.5V5 NEB (17:21)
[2022-01-20] MEDS ORDERED: APIX5TAB PO (17:21)
[2022-01-20] MEDS ORDERED: AMLO-186 PO (17:21)
[2022-01-20] MEDS ORDERED: POTA-163 PO (17:21)
[2022-01-20] MEDS ORDERED: ROSU40TA22 PO (17:21)
[2022-01-20] MEDS ORDERED: LISI20TA18 PO (17:21)
[2022-01-20 17:32] VITALS: BP 118/61
[2022-01-20] MEDS: HYDROcodone/APAP 5/325MG 1 TAB TABLET PO PRN (17:42)
[2022-01-20 19:39] VITALS: BP 127/66
[2022-01-20] MEDS: IPRATRPIUM/ALBUTEROL 0.5/2.5MG 3 ML NEBU. NEB SCH (21:01)
[2022-01-20] MEDS: APIXABAN 5 MG TABLET. PO SCH (21:25)
[2022-01-20] MEDS: guaiFENesin DM 600/30MG 1 TAB TAB.ER.12H PO SCH (21:25)
[2022-01-20] MEDS: DOXYCYCLINE HYCLATE 100 MG in IV DEXTROSE 5% 100ML 100 ML IV SCH (21:25)
[2022-01-20] MEDS: ZOLPIDEM 5 MG TABLET. PO PRN (21:30)
[2022-01-20] MEDS: guaiFENesin/CODEINE 100mg/10mg 5 ML LIQUID PO PRN (21:33)
[2022-01-20 23:07] VITALS: BP 111/55
[2022-01-21 03:29] VITALS: BP 105/57
[2022-01-21 04:03] LABS: BASO % 0 % (0-3); EOS % 0 % (0-3); HEMATOCRIT 28.4 % (39.0-53.0); HEMOGLOBIN 9.4 g/dL (13.0-17.5); LYMPH # 1.3 x10^3/uL (1.0-4.8); LYMPH % 12 % (24-48); MEAN CORPUSCULAR HEMOGLOBIN 30 pg (25-35); MEAN CORPUSCULAR HGB CONC 33 g/dL (31-37); MEAN CORPUSCULAR VOLUME 91 fL (79-100); MONO # 0.8 x10^3/uL (0.0-1.1); MONO % 7 % (0-9); NEUT # 8.9 x10^3/uL (1.8-7.7); NEUT % 81 % (31-73); PLATELET COUNT 132 x10^3/uL (140-400); RED BLOOD COUNT 3.11 x10^6/uL (4.30-5.70); RED CELL DISTRIBUTION WIDTH 14.7 % (11.5-14.5)
[2022-01-21 04:16] LABS: CALCIUM 8.1 mg/dL (8.5-10.1); CREATININE 2.2 mg/dL (0.7-1.3); GFR 28.9; POTASSIUM 4.3 mmol/L (3.5-5.1)
[2022-01-21 07:00] VITALS: BP 108/53
[2022-01-21] MEDS: IPRATRPIUM/ALBUTEROL 0.5/2.5MG 3 ML NEBU. NEB SCH ×4 (07:29→20:26)
[2022-01-21] MEDS: cefTRIAXone IV Push 1 GM VIAL. IVP SCH (08:14)
[2022-01-21] MEDS: DOXYCYCLINE HYCLATE 100 MG in IV DEXTROSE 5% 100ML 100 ML IV SCH ×2 (08:14→20:51)
[2022-01-21] MEDS: guaiFENesin DM 600/30MG 1 TAB TAB.ER.12H PO SCH ×2 (08:15→20:52)
[2022-01-21] MEDS: LISINOPRIL 20 MG TABLET PO SCH (08:15)
[2022-01-21] MEDS: METOPROLOL SUCC 24HR ER 50 MG TAB.ER.24H. PO SCH (08:15)
[2022-01-21] MEDS: FUROSEMIDE 20 MG/2 ML VIAL. IVP SCH (08:15)
[2022-01-21] MEDS: ATORVASTATIN CALCIUM 40 MG TABLET. PO SCH (08:15)
[2022-01-21] MEDS: APIXABAN 5 MG TABLET. PO SCH ×2 (08:16→20:52)
[2022-01-21] MEDS: HYDROcodone/APAP 5/325MG 1 TAB TABLET PO PRN ×4 (08:20→18:07)
[2022-01-21] MEDS ORDERED: NON FORMULARY ITEM (Umeclidinium Brm/Vilanterol Tr (Anoro Ellipta 62.5-25 Mcg Inh) 1 PUFF) INH SCH (09:00)
[2022-01-21] MEDS ORDERED: FUROSEMIDE 40 MG/4 ML VIAL. IVP SCH (09:00)
--- NOTE | 2022-01-21 09:07 | PDOC2 ---
CONSULT Date of Consult Date of Consult DATE: 01/21/22 TIME: 09:06 Reason for Consult Reason for Consult: CKD Identification/Chief Complaint Chief Complaint Currently None, Getting Echo History of Present Illness Reason for Visit: Patient is a 81-year-old CM with past medical history COPD on 2 L, CAD with stents, CABG, who presents to the ED with complaints of acute on chronic shortness of breath for the past few days. He reports associated cough and congestion. States he was seen by his PCP recently for bilateral leg swelling and placed on Lasix, but states he has not filled this medication. States it has been several years since his last COPD exacerbation. He denies any falls or trauma. He reports he [facility] fu [facility]t every 2 Months . States he has a Dx of CKD 3 B, doesnt know his baseline Creatinine. On further questioning mentions he had Kidney Bx done approx 1 Month back- he thinks it was unremarkable Denies any Hx of Kidney stones. No OTC NSAID's . States he Noticed decreased UOP at home and still feels UOP not adequate, denies any Dysuria, hematuria. D enies Dx of BPH . Denies N/V/D. No F/C Past Medical History Past Medical History COPD on 2 L, CAD with stents, CABG, A. fib on Eliquis, HTN, CKD 3 Past Surgical History Past Surgical History CABG (KELLOGG to the LAD, SVG to PDA SVG to first obtuse marginal; 2016), Cataract Removal, Other (status post coronary gram 2019 occluded vein graft to the PDA with other patent conduits, PCI to the RCA 2017; corneal transplant) Family History Family History CAD, CVA, [place] Family History: Coronary Artery Disease Social History Social History Smoke: <1 pack per day ALCOHOL: occassional Drugs: None Lives: with Family Quit ALCOHOL: occassional Drugs: None Current Problem List Problem List Problems Medical Problems: (1) Bilateral pneumonia Status: Acute (2) CHF exacerbation Status: Acute (3) Chronic renal failure Status: Acute (4) Pleural effusion Status: Acute Current Medications Current Medications Current Medications Morphine Sulfate (Morphine Sulfate) 2 mg PRN Q15MIN PRN IV/SQ PAIN GREATER THAN 3/10 Last administered on 01/20/22at 15:13; Start 01/20/22 at 13:45; Stop 01/21/22 at 13:44 Furosemide (Lasix) 40 mg DAILY IVP Last administered on 01/20/22at 15:24; Start 01/21/22 at 09:00; Stop 01/21/22 at 03:48; Status DC Ceftriaxone Sodium (Rocephin) 1 gm 1X ONCE IVP Last administered on 01/20/22at 15:23; Start 01/20/22 at 15:15; Stop 01/20/22 at 15:16; Status DC Ondansetron HCl (Zofran) 4 mg PRN Q8HRS PRN IVP NAUSEA/VOMITING; Start 01/20/22 at 15:30; Stop 01/21/22 at 15:29 Fentanyl Citrate (Fentanyl 2ml Vial) 50 mcg PRN Q1HR PRN IVP PAIN; Start 01/20/22 at 15:30; Stop 01/21/22 at 15:29 Acetaminophen (Tylenol) 650 mg PRN Q4HRS PRN PO FEVER > 100.3'F; Start 01/20/22 at 15:30; Stop 01/21/22 at 15:29 Methylprednisolone Sodium Succinate (SOLU-Medrol 40MG VIAL) 40 mg PRN Q12HRS IV ; Start 01/20/22 at 16:15 Ceftriaxone Sodium (Rocephin) 1 gm DAILY IVP Last administered on 01/21/22at 08:14; Start 01/21/22 at 09:00 Doxycycline Hyclate 100 mg/ Dextrose 100 ml @ 50 mls/hr BID IV Last administered on 01/21/22at 08:14; Start 01/20/22 at 21:00 Albuterol/ Ipratropium (Duoneb) 3 ml RTQID NEB Last administered on 01/21/22at 07:29; Start 01/20/22 at 20:00 Ondansetron HCl (Zofran) 4 mg PRN Q6HRS PRN IVP NAUSEA/VOMITING; Start 01/20/22 at 16:15 Al Hydroxide/Mg Hydroxide (Mylanta Plus Xs) 30 ml PRN Q3HRS PRN PO HEARTBURN / GAS; Start 01/20/22 at 16:15 Calcium Carbonate/ Glycine (Tums) 500 mg PRN Q3HRS PRN PO UPSET STOMACH; Start 01/20/22 at 16:15 Zolpidem Tartrate (Ambien) 5 mg PRN QHS PRN PO INSOMNIA, MAY REPEAT IN 1HR Last administered on 01/20/22at 21:30; Start 01/20/22 at 16:15 Morphine Sulfate (Morphine Sulfate) 2 mg PRN Q1HR PRN IV PAIN Last administered on 01/21/22at 03:15; Start 01/20/22 at 16:15 Acetaminophen/ Hydrocodone Bitart (Lortab 5/325) 1 tab PRN Q4HRS PRN PO MILD PAIN 1-3; Start 01/20/22 at 16:15 Acetaminophen/ Hydrocodone Bitart (Lortab 5/325) 2 tab PRN Q4HRS PRN PO MODERATE PAIN, SEVERE PAIN Last administered on 01/21/22 08:20; Start 01/20/22 at 16:15 Oxycodone/ Acetaminophen (Percocet 5/325) 1 tab PRN Q4HRS PRN PO MILD PAIN, 2ND CHOICE; Start 01/20/22 at 16:15 Acetaminophen (Tylenol) 650 mg PRN Q6HRS PRN PO Headaches, Temp > 101.5F; S tart 01/20/22 at 16:15 Magnesium Hydroxide (Milk Of Magnesia) 2,400 mg PRN Q12HR PRN PO CONSTIPATION; Start 01/20/22 at 16:15 Guaifenesin/ Codeine Phosphate (Robitussin Ac) 5 ml PRN Q6HRS PRN PO COUGH Last administered on 01/20/22at 21:33; Start 01/20/22 at 16:30 Benzonatate (Tessalon Perle) 100 mg TID PRN PO COUGH; Start 01/20/22 at 16:30 Guaifenesin (MUCINEX ER with DM) 1 tab BID PO Last administered on 01/21/22at 08:15; Start 01/20/22 at 21:00 Amlodipine Besylate (Norvasc) 5 mg DAILY PO Last administered on 01/21/22at 08:23; Start 01/21/22 at 09:00 Apixaban (Eliquis) 2.5 mg BID PO Last administered on 01/21/22at 08:16; Start 01/20/22 at 21:00 Lisinopril (Prinivil) 20 mg DAILY PO Last administered on 5/4/22at 08:15; Start 01/21/22 at 09:00 Metoprolol Succinate (Toprol Xl) 50 mg DAILY PO Last administered on 01/21/22at 08:15; Start 01/21/22 at 09:00 Atorvastatin Calcium (Lipitor) 80 mg DAILY PO Last administered on 01/21/22at 08:15; Start 01/21/22 at 09:00 Non-Formulary Medication (Umeclidinium Brm/Vilanterol Tr (Anoro Ellipta 62.5-25 Mcg Inh)) 1 puff DAILY INH ; Start 01/21/22 at 09:00; Stop 01/20/22 at 19:34; Status DC Furosemide (Lasix) 20 mg DAILY IVP Last administered on 01/21/22at 08:15; Start 01/21/22 at 09:00 Active Scripts Active Reported Albuterol Sulfate Neb Soln (Albuterol Sulfate) 2.5 Mg/3 Ml Vial.neb 1 Vial NEB QID PRN Metoprolol Succinate ( Xl ) (Metoprolol Succinate) 25 Mg Tab.er.24h 2 Tab PO DAILY Anoro Ellipta 62.5-25 Mcg Inh (Umeclidinium Brm/Vilanterol Tr) 1 Each Disk.w.dev 1 Puff INH DAILY Eliquis (Apixaban) 5 Mg Tablet 1 Tab PO BID Rosuvastatin Calcium 40 Mg Tablet 1 Tab PO DAILY Amlodipine Besylate 5 Mg Tablet 1 Tab PO DAILY Lisinopril 20 Mg Tablet 1 Tab PO DAILY Potassium Chloride 20 Meq Tablet.er 1 Tab PO DAILY Furosemide 40 Mg Tablet 1 Tab PO DAILY No Known Medications Prior To Admisstion (Info) Each 1 Each Allergies Allergies: Coded Allergies: naproxen (Verified Allergy, Intermediate, mild rash, 01/21/22) ROS Review of System As per HPI, rest of the ROS is negative Physical Exam Physical Exam General: NAD HEENT: Atraumatic, OM moist Neck Supple Lungs: bibasilar rales, Non labored Heart: RRR, systolic murmur, midline sternotomy scar Cardiovascular: S1, S2 Abdomen: Normal bowel sounds, Soft, No tenderness Extremities: +1 bilateral leg edema Skin: No Rash Neuro:Grossly normal, moving all 4 extremities Psych/Mental Status: Mental status NL, Mood NL No [place], No CVA or SP tenderness Vital Signs Vital Signs Date Time Temp Pulse Resp B/P (MAP) Pulse Ox O2 Delivery O2 Flow Rate FiO2 01/21/22 08:23 63 108/53 01/21/22 08:20 18 97 Nasal Cannula 3.0 01/21/22 07:00 98.0 98.0 Assessment & Plan ? FILEMON on CKD vs his baseline- C Patient doesnt know his baseline Creatinine . Supportive care, Avoid Nephrotoxins, Diuresis per cardiology . Strict I/O (UOP not recorded since admission) , daily standing weight . please obtain records/ labs from his primary [facility] CKD stage 3 B - Patient reports he follows with [facility] nephrology , has CKD stage 3, doesnt know his baseline Creatinine or eGFR . ? Kidney Bx approx 1 mo back . Obtain records from [facility] nephrology Renal cysts- US in Jul 2021 - Bilateral renal cysts. with the largest measuring 3.4 cm in the right kidney. Microscopic hematuria-Unsure if chronic liza with Hx of Bilateral Renal cysts .He follows with [facility] as OP Anemia - Drop in Hgb vs his baseline (? Hemoconc POA), Monitor . Defer to primary HTN - JOSEPH- , BB , Lasix per home med list Community-acquired pneumonia, possible gram-negative or possible gram-positive organism Acute on chronic respiratory failure with hypoxia Acute CHF exacerbation- CXr No Congestion/Pulm edema reported Labs Labs Laboratory Tests Test 01/20/22 13:40 01/20/22 14:40 01/20/22 15:06 01/20/22 15:42 White Blood Count 16.8 x10^3/uL (4.0-11.0) Red Blood Count 3.81 x10^6/uL (4.30-5.70) Hemoglobin 11.5 g/dL (13.0-17.5) Hematocrit 34.7 % (39.0-53.0) Mean Corpuscular Volume 91 fL (79-100) Mean Corpuscular Hemoglobin 30 pg (25-35) Mean Corpuscular Hemoglobin Concent 33 g/dL (31-37) Red Cell Distribution Width 14.8 % (11.5-14.5) Platelet Count 166 x10^3/uL (140-400) Neutrophils (%) (Auto) 89 % (31-73) Lymphocytes (%) (Auto) 7 % (24-48) Monocytes (%) (Auto) 4 % (0-9) Eosinophils (%) (Auto) 0 % (0-3) Basophils (%) (Auto) 0 % (0-3) Neutrophils # (Auto) 14.9 x10^3/uL (1.8-7.7) Lymphocytes # (Auto) 1.1 x10^3/uL (1.0-4.8) Monocytes # (Auto) 0.7 x10^3/uL (0.0-1.1) Eosinophils # (Auto) 0.0 x10^3/uL (0.0-0.7) Basophils # (Auto) 0.0 x10^3/uL (0.0-0.2) Segmented Neutrophils % 87 % (35-66) Lymphocytes % 8 % (24-48) Monocytes % 5 % (0-10) Platelet Estimate Adequate (ADEQUATE) Anisocytosis Slight Sodium Level 138 mmol/L (136-145) Potassium Level 4.7 mmol/L (3.5-5.1) Chloride Level 101 mmol/L (98-107) Carbon Dioxide Level 28 mmol/L (21-32) Anion Gap 9 (6-14) Blood Urea Nitrogen 34 mg/dL (8-26) Creatinine 1.9 mg/dL (0.7-1.3) Estimated GFR (Cockcroft-Gault) 34.2 BUN/Creatinine Ratio 18 (6-20) Glucose Level 119 mg/dL (70-99) Calcium Level 8.6 mg/dL (8.5-10.1) Magnesium Level 1.8 mg/dL (1.8-2.4) Total Bilirubin 1.0 mg/dL (0.2-1.0) Aspartate Amino Transf (AST/SGOT) 23 U/L (15-37) Alanine Aminotransferase (ALT/SGPT) 21 U/L (16-63) Alkaline Phosphatase 98 U/L (46-116) Troponin I High Sensitivity 37 ng/L (4-75) WO-Xch-A-Type Natriuretic Peptide 6763 pg/mL (0-449) Total Protein 6.6 g/dL (6.4-8.2) Albumin 3.8 g/dL (3.4-5.0) Albumin/Globulin Ratio 1.4 (1.0-1.7) Procalcitonin < 0.10 ng/mL (0.00-0.10) Influenza Type A Antigen Negative (NEGATIVE) Influenza Type B Antigen Negative (NEGATIVE) SARS-CoV-2 Antigen (Rapid) Negative (NEGATIVE) Lactic Acid Level 0.6 mmol/L (0.4-2.0) Urine Collection Type Unknown Urine Color (Auto) Light yellow Urine Turbidity Clear Urine pH (Auto) 5.5 (<5.0-8.0) Urine Specific [place] 1.016 (1.000-1.030) Urine Protein (Auto) 100 mg/dL (Negative) Urine Glucose (Auto)(UA) Negative mg/dL (Negative) Urine Ketones (Auto) Negative mg/dL (Negative) Urine Blood (Auto) Moderate (Negative) Urine Nitrite Negative (Negative) Urine Bilirubin (Auto) Negative (Negative) Urine Urobilinogen (Auto) Normal mg/dL (Normal) Urine Leukocyte Esterase (Auto) Negative (Negative) Urine RBC 11-20 /HPF (0-2) Urine WBC 1-4 /HPF (0-4) Urine Squamous Epithelial Cells Few /LPF Urine Bacteria 0 /HPF (0-FEW) Urine Hyaline Casts Moderate /HPF Urine Mucus Mod /LPF Test 01/20/22 16:33 01/20/22 20:30 01/21/22 03:25 Troponin I High Sensitivity 45 ng/L (4-75) 51 ng/L (4-75) White Blood Count 11.0 x10^3/uL (4.0-11.0) Red Blood Count 3.11 x10^6/uL (4.30-5.70) Hemoglobin 9.4 g/dL (13.0-17.5) Hematocrit 28.4 % (39.0-53.0) Mean Corpuscular Volume 91 fL (79-100) Mean Corpuscular Hemoglobin 30 pg (25-35) Mean Corpuscular Hemoglobin Concent 33 g/dL (31-37) Red Cell Distribution Width 14.7 % (11.5-14.5) Platelet Count 132 x10^3/uL (140-400) Neutrophils (%) (Auto) 81 % (31-73) Lymphocytes (%) (Auto) 12 % (24-48) Monocytes (%) (Auto) 7 % (0-9) Eosinophils (%) (Auto) 0 % (0-3) Basophils (%) (Auto) 0 % (0-3) Neutrophils # (Auto) 8.9 x10^3/uL (1.8-7.7) Lymphocytes # (Auto) 1.3 x10^3/uL (1.0-4.8) Monocytes # (Auto) 0.8 x10^3/uL (0.0-1.1) Eosinophils # (Auto) 0.0 x10^3/uL (0.0-0.7) Basophils # (Auto) 0.0 x10^3/uL (0.0-0.2) Sodium Level 138 mmol/L (136-145) Potassium Level 4.3 mmol/L (3.5-5.1) Chloride Level 102 mmol/L (98-107) Carbon Dioxide Level 30 mmol/L (21-32) Anion Gap 6 (6-14) Blood Urea Nitrogen 41 mg/dL (8-26) Creatinine 2.2 mg/dL (0.7-1.3) Estimated GFR (Cockcroft-Gault) 28.9 Glucose Level 113 mg/dL (70-99) Calcium Level 8.1 mg/dL (8.5-10.1) Laboratory Tests Test 01/20/22 13:40 01/20/22 14:40 01/20/22 15:06 01/20/22 15:42 White Blood Count 16.8 x10^3/uL (4.0-11.0) Red Blood Count 3.81 x10^6/uL (4.30-5.70) Hemoglobin 11.5 g/dL (13.0-17.5) Hematocrit 34.7 % (39.0-53.0) Mean Corpuscular Volume 91 fL (79-100) Mean Corpuscular Hemoglobin 30 pg (25-35) Mean Corpuscular Hemoglobin Concent 33 g/dL (31-37) Red Cell Distribution Width 14.8 % (11.5-14.5) Platelet Count 166 x10^3/uL (140-400) Neutrophils (%) (Auto) 89 % (31-73) Lymphocytes (%) (Auto) 7 % (24-48) Monocytes (%) (Auto) 4 % (0-9) Eosinophils (%) (Auto) 0 % (0-3) Basophils (%) (Auto) 0 % (0-3) Neutrophils # (Auto) 14.9 x10^3/uL (1.8-7.7) Lymphocytes # (Auto) 1.1 x10^3/uL (1.0-4.8) Monocytes # (Auto) 0.7 x10^3/uL (0.0-1.1) Eosinophils # (Auto) 0.0 x10^3/uL (0.0-0.7) Basophils # (Auto) 0.0 x10^3/uL (0.0-0.2) Segmented Neutrophils % 87 % (35-66) Lymphocytes % 8 % (24-48) Monocytes % 5 % (0-10) Platelet Estimate Adequate (ADEQUATE) Anisocytosis Slight Sodium Level 138 mmol/L (136-145) Potassium Level 4.7 mmol/L (3.5-5.1) Chloride Level 101 mmol/L (98-107) Carbon Dioxide Level 28 mmol/L (21-32) Anion Gap 9 (6-14) Blood Urea Nitrogen 34 mg/dL (8-26) Creatinine 1.9 mg/dL (0.7-1.3) Estimated GFR (Cockcroft-Gault) 34.2 BUN/Creatinine Ratio 18 (6-20) Glucose Level 119 mg/dL (70-99) Calcium Level 8.6 mg/dL (8.5-10.1) Magnesium Level 1.8 mg/dL (1.8-2.4) Total Bilirubin 1.0 mg/dL (0.2-1.0) Aspartate Amino Transf (AST/SGOT) 23 U/L (15-37) Alanine Aminotransferase (ALT/SGPT) 21 U/L (16-63) Alkaline Phosphatase 98 U/L (46-116) Troponin I High Sensitivity 37 ng/L (4-75) FX-Rnl-M-Type Natriuretic Peptide 6763 pg/mL (0-449) Total Protein 6.6 g/dL (6.4-8.2) Albumin 3.8 g/dL (3.4-5.0) Albumin/Globulin Ratio 1.4 (1.0-1.7) Procalcitonin < 0.10 ng/mL (0.00-0.10) Influenza Type A Antigen Negative (NEGATIVE) Influenza Type B Antigen Negative (NEGATIVE) SARS-CoV-2 Antigen (Rapid) Negative (NEGATIVE) Lactic Acid Level 0.6 mmol/L (0.4-2.0) Urine Collection Type Unknown Urine Color (Auto) Light yellow Urine Turbidity Clear Urine pH (Auto) 5.5 (<5.0-8.0) Urine Specific [place] 1.016 (1.000-1.030) Urine Protein (Auto) 100 mg/dL (Negative) Urine Glucose (Auto)(UA) Negative mg/dL (Negative) Urine Ketones (Auto) Negative mg/dL (Negative) Urine Blood (Auto) Moderate (Negative) Urine Nitrite Negative (Negative) Urine Bilirubin (Auto) Negative (Negative) Urine Urobilinogen (Auto) Normal mg/dL (Normal) Urine Leukocyte Esterase (Auto) Negative (Negative) Urine RBC 11-20 /HPF (0-2) Urine WBC 1-4 /HPF (0-4) Urine Squamous Epithelial Cells Few /LPF Urine Bacteria 0 /HPF (0-FEW) Urine Hyaline Casts Moderate /HPF Urine Mucus Mod /LPF Test 01/20/22 16:33 01/20/22 20:30 01/21/22 03:25 Troponin I High Sensitivity 45 ng/L (4-75) 51 ng/L (4-75) White Blood Count 11.0 x10^3/uL (4.0-11.0) Red Blood Count 3.11 x10^6/uL (4.30-5.70) Hemoglobin 9.4 g/dL (13.0-17.5) Hematocrit 28.4 % (39.0-53.0) Mean Corpuscular Volume 91 fL (79-100) Mean Corpuscular Hemoglobin 30 pg (25-35) Mean Corpuscular Hemoglobin Concent 33 g/dL (31-37) Red Cell Distribution Width 14.7 % (11.5-14.5) Platelet Count 132 x10^3/uL (140-400) Neutrophils (%) (Auto) 81 % (31-73) Lymphocytes (%) (Auto) 12 % (24-48) Monocytes (%) (Auto) 7 % (0-9) Eosinophils (%) (Auto) 0 % (0-3) Basophils (%) (Auto) 0 % (0-3) Neutrophils # (Auto) 8.9 x10^3/uL (1.8-7.7) Lymphocytes # (Auto) 1.3 x10^3/uL (1.0-4.8) Monocytes # (Auto) 0.8 x10^3/uL (0.0-1.1) Eosinophils # (Auto) 0.0 x10^3/uL (0.0-0.7) Basophils # (Auto) 0.0 x10^3/uL (0.0-0.2) Sodium Level 138 mmol/L (136-145) Potassium Level 4.3 mmol/L (3.5-5.1) Chloride Level 102 mmol/L (98-107) Carbon Dioxide Level 30 mmol/L (21-32) Anion Gap 6 (6-14) Blood Urea Nitrogen 41 mg/dL (8-26) Creatinine 2.2 mg/dL (0.7-1.3) Estimated GFR (Cockcroft-Gault) 28.9 Glucose Level 113 mg/dL (70-99) Calcium Level 8.1 mg/dL (8.5-10.1) Review All relevant outside records, renal labs, imaging studies, telemetry/EKG's were reviewed. Images Images PROCEDURE: PORTABLE CHEST 1V EXAM: XR CHEST 1V 01/20/2022 1:39 PM CLINICAL INDICATION: Cough COMPARISON: CT chest 10/17/2018 TECHNIQUE: AP upright view the chest FINDINGS: There is a new dual-lead pacemaker. There are changes of median sternotomy. The heart is mildly enlarged. There are airspace opacities in the right greater than left lung base, similar to findings on CT chest 10/17/2018. There is a large calcified granuloma in the right lower lobe. Unchanged small pleural effusions or pleural thickening. No pneumothorax. IMPRESSION: Number Airspace opacities in the mid and lower lungs. This is similar to CT chest 10/17/2018 and may be due to scarring or atelectasis. An acute superimposed process cannot be excluded. 2. Unchanged small pleural effusions or pleural thickening. KATIE STAHL MD January 21, 2022 09:07
[2022-01-21] MEDS: methylPREDNISolone SOD SUCC PF 40 MG/ML VIAL. IV SCH ×2 (10:52→20:51)
[2022-01-21 11:00] VITALS: BP 96/50
--- NOTE | 2022-01-21 11:01 | PDOC ---
PULMONARY PROGRESS NOTES DATE: 01/21/22 TIME: 11:00 Vitals Vital Signs Date Time Temp Pulse Resp B/P (MAP) Pulse Ox O2 Delivery O2 Flow Rate FiO2 01/21/22 08:50 20 97 Nasal Cannula 3.0 01/21/22 08:23 63 108/53 01/21/22 07:00 98.0 98.0 Labs Laboratory Tests Test 01/20/22 13:40 01/20/22 14:40 01/20/22 15:06 01/20/22 15:42 White Blood Count 16.8 x10^3/uL (4.0-11.0) Red Blood Count 3.81 x10^6/uL (4.30-5.70) Hemoglobin 11.5 g/dL (13.0-17.5) Hematocrit 34.7 % (39.0-53.0) Mean Corpuscular Volume 91 fL (79-100) Mean Corpuscular Hemoglobin 30 pg (25-35) Mean Corpuscular Hemoglobin Concent 33 g/dL (31-37) Red Cell Distribution Width 14.8 % (11.5-14.5) Platelet Count 166 x10^3/uL (140-400) Neutrophils (%) (Auto) 89 % (31-73) Lymphocytes (%) (Auto) 7 % (24-48) Monocytes (%) (Auto) 4 % (0-9) Eosinophils (%) (Auto) 0 % (0-3) Basophils (%) (Auto) 0 % (0-3) Neutrophils # (Auto) 14.9 x10^3/uL (1.8-7.7) Lymphocytes # (Auto) 1.1 x10^3/uL (1.0-4.8) Monocytes # (Auto) 0.7 x10^3/uL (0.0-1.1) Eosinophils # (Auto) 0.0 x10^3/uL (0.0-0.7) Basophils # (Auto) 0.0 x10^3/uL (0.0-0.2) Segmented Neutrophils % 87 % (35-66) Lymphocytes % 8 % (24-48) Monocytes % 5 % (0-10) Platelet Estimate Adequate (ADEQUATE) Anisocytosis Slight Sodium Level 138 mmol/L (136-145) Potassium Level 4.7 mmol/L (3.5-5.1) Chloride Level 101 mmol/L (98-107) Carbon Dioxide Level 28 mmol/L (21-32) Anion Gap 9 (6-14) Blood Urea Nitrogen 34 mg/dL (8-26) Creatinine 1.9 mg/dL (0.7-1.3) Estimated GFR (Cockcroft-Gault) 34.2 BUN/Creatinine Ratio 18 (6-20) Glucose Level 119 mg/dL (70-99) Calcium Level 8.6 mg/dL (8.5-10.1) Magnesium Level 1.8 mg/dL (1.8-2.4) Total Bilirubin 1.0 mg/dL (0.2-1.0) Aspartate Amino Transf (AST/SGOT) 23 U/L (15-37) Alanine Aminotransferase (ALT/SGPT) 21 U/L (16-63) Alkaline Phosphatase 98 U/L (46-116) Troponin I High Sensitivity 37 ng/L (4-75) QX-Sxy-R-Type Natriuretic Peptide 6763 pg/mL (0-449) Total Protein 6.6 g/dL (6.4-8.2) Albumin 3.8 g/dL (3.4-5.0) Albumin/Globulin Ratio 1.4 (1.0-1.7) Procalcitonin < 0.10 ng/mL (0.00-0.10) Influenza Type A Antigen Negative (NEGATIVE) Influenza Type B Antigen Negative (NEGATIVE) SARS-CoV-2 Antigen (Rapid) Negative (NEGATIVE) Lactic Acid Level 0.6 mmol/L (0.4-2.0) Urine Collection Type Unknown Urine Color (Auto) Light yellow Urine Turbidity Clear Urine pH (Auto) 5.5 (<5.0-8.0) Urine Specific [place] 1.016 (1.000-1.030) Urine Protein (Auto) 100 mg/dL (Negative) Urine Glucose (Auto)(UA) Negative mg/dL (Negative) Urine Ketones (Auto) Negative mg/dL (Negative) Urine Blood (Auto) Moderate (Negative) Urine Nitrite Negative (Negative) Urine Bilirubin (Auto) Negative (Negative) Urine Urobilinogen (Auto) Normal mg/dL (Normal) Urine Leukocyte Esterase (Auto) Negative (Negative) Urine RBC 11-20 /HPF (0-2) Urine WBC 1-4 /HPF (0-4) Urine Squamous Epithelial Cells Few /LPF Urine Bacteria 0 /HPF (0-FEW) Urine Hyaline Casts Moderate /HPF Urine Mucus Mod /LPF Test 01/20/22 16:33 01/20/22 20:30 01/21/22 03:25 Troponin I High Sensitivity 45 ng/L (4-75) 51 ng/L (4-75) White Blood Count 11.0 x10^3/uL (4.0-11.0) Red Blood Count 3.11 x10^6/uL (4.30-5.70) Hemoglobin 9.4 g/dL (13.0-17.5) Hematocrit 28.4 % (39.0-53.0) Mean Corpuscular Volume 91 fL (79-100) Mean Corpuscular Hemoglobin 30 pg (25-35) Mean Corpuscular Hemoglobin Concent 33 g/dL (31-37) Red Cell Distribution Width 14.7 % (11.5-14.5) Platelet Count 132 x10^3/uL (140-400) Neutrophils (%) (Auto) 81 % (31-73) Lymphocytes (%) (Auto) 12 % (24-48) Monocytes (%) (Auto) 7 % (0-9) Eosinophils (%) (Auto) 0 % (0-3) Basophils (%) (Auto) 0 % (0-3) Neutrophils # (Auto) 8.9 x10^3/uL (1.8-7.7) Lymphocytes # (Auto) 1.3 x10^3/uL (1.0-4.8) Monocytes # (Auto) 0.8 x10^3/uL (0.0-1.1) Eosinophils # (Auto) 0.0 x10^3/uL (0.0-0.7) Basophils # (Auto) 0.0 x10^3/uL (0.0-0.2) Sodium Level 138 mmol/L (136-145) Potassium Level 4.3 mmol/L (3.5-5.1) Chloride Level 102 mmol/L (98-107) Carbon Dioxide Level 30 mmol/L (21-32) Anion Gap 6 (6-14) Blood Urea Nitrogen 41 mg/dL (8-26) Creatinine 2.2 mg/dL (0.7-1.3) Estimated GFR (Cockcroft-Gault) 28.9 Glucose Level 113 mg/dL (70-99) Calcium Level 8.1 mg/dL (8.5-10.1) Laboratory Tests Test 01/20/22 13:40 01/20/22 14:40 01/20/22 15:06 01/20/22 15:42 White Blood Count 16.8 x10^3/uL (4.0-11.0) Red Blood Count 3.81 x10^6/uL (4.30-5.70) Hemoglobin 11.5 g/dL (13.0-17.5) Hematocrit 34.7 % (39.0-53.0) Mean Corpuscular Volume 91 fL (79-100) Mean Corpuscular Hemoglobin 30 pg (25-35) Mean Corpuscular Hemoglobin Concent 33 g/dL (31-37) Red Cell Distribution Width 14.8 % (11.5-14.5) Platelet Count 166 x10^3/uL (140-400) Neutrophils (%) (Auto) 89 % (31-73) Lymphocytes (%) (Auto) 7 % (24-48) Monocytes (%) (Auto) 4 % (0-9) Eosinophils (%) (Auto) 0 % (0-3) Basophils (%) (Auto) 0 % (0-3) Neutrophils # (Auto) 14.9 x10^3/uL (1.8-7.7) Lymphocytes # (Auto) 1.1 x10^3/uL (1.0-4.8) Monocytes # (Auto) 0.7 x10^3/uL (0.0-1.1) Eosinophils # (Auto) 0.0 x10^3/uL (0.0-0.7) Basophils # (Auto) 0.0 x10^3/uL (0.0-0.2) Segmented Neutrophils % 87 % (35-66) Lymphocytes % 8 % (24-48) Monocytes % 5 % (0-10) Platelet Estimate Adequate (ADEQUATE) Anisocytosis Slight Sodium Level 138 mmol/L (136-145) Potassium Level 4.7 mmol/L (3.5-5.1) Chloride Level 101 mmol/L (98-107) Carbon Dioxide Level 28 mmol/L (21-32) Anion Gap 9 (6-14) Blood Urea Nitrogen 34 mg/dL (8-26) Creatinine 1.9 mg/dL (0.7-1.3) Estimated GFR (Cockcroft-Gault) 34.2 BUN/Creatinine Ratio 18 (6-20) Glucose Level 119 mg/dL (70-99) Calcium Level 8.6 mg/dL (8.5-10.1) Magnesium Level 1.8 mg/dL (1.8-2.4) Total Bilirubin 1.0 mg/dL (0.2-1.0) Aspartate Amino Transf (AST/SGOT) 23 U/L (15-37) Alanine Aminotransferase (ALT/SGPT) 21 U/L (16-63) Alkaline Phosphatase 98 U/L (46-116) Troponin I High Sensitivity 37 ng/L (4-75) XO-Pbs-Z-Type Natriuretic Peptide 6763 pg/mL (0-449) Total Protein 6.6 g/dL (6.4-8.2) Albumin 3.8 g/dL (3.4-5.0) Albumin/Globulin Ratio 1.4 (1.0-1.7) Procalcitonin < 0.10 ng/mL (0.00-0.10) Influenza Type A Antigen Negative (NEGATIVE) Influenza Type B Antigen Negative (NEGATIVE) SARS-CoV-2 Antigen (Rapid) Negative (NEGATIVE) Lactic Acid Level 0.6 mmol/L (0.4-2.0) Urine Collection Type Unknown Urine Color (Auto) Light yellow Urine Turbidity Clear Urine pH (Auto) 5.5 (<5.0-8.0) Urine Specific [place] 1.016 (1.000-1.030) Urine Protein (Auto) 100 mg/dL (Negative) Urine Glucose (Auto)(UA) Negative mg/dL (Negative) Urine Ketones (Auto) Negative mg/dL (Negative) Urine Blood (Auto) Moderate (Negative) Urine Nitrite Negative (Negative) Urine Bilirubin (Auto) Negative (Negative) Urine Urobilinogen (Auto) Normal mg/dL (Normal) Urine Leukocyte Esterase (Auto) Negative (Negative) Urine RBC 11-20 /HPF (0-2) Urine WBC 1-4 /HPF (0-4) Urine Squamous Epithelial Cells Few /LPF Urine Bacteria 0 /HPF (0-FEW) Urine Hyaline Casts Moderate /HPF Urine Mucus Mod /LPF Test 01/20/22 16:33 01/20/22 20:30 01/21/22 03:25 Troponin I High Sensitivity 45 ng/L (4-75) 51 ng/L (4-75) White Blood Count 11.0 x10^3/uL (4.0-11.0) Red Blood Count 3.11 x10^6/uL (4.30-5.70) Hemoglobin 9.4 g/dL (13.0-17.5) Hematocrit 28.4 % (39.0-53.0) Mean Corpuscular Volume 91 fL (79-100) Mean Corpuscular Hemoglobin 30 pg (25-35) Mean Corpuscular Hemoglobin Concent 33 g/dL (31-37) Red Cell Distribution Width 14.7 % (11.5-14.5) Platelet Count 132 x10^3/uL (140-400) Neutrophils (%) (Auto) 81 % (31-73) Lymphocytes (%) (Auto) 12 % (24-48) Monocytes (%) (Auto) 7 % (0-9) Eosinophils (%) (Auto) 0 % (0-3) Basophils (%) (Auto) 0 % (0-3) Neutrophils # (Auto) 8.9 x10^3/uL (1.8-7.7) Lymphocytes # (Auto) 1.3 x10^3/uL (1.0-4.8) Monocytes # (Auto) 0.8 x10^3/uL (0.0-1.1) Eosinophils # (Auto) 0.0 x10^3/uL (0.0-0.7) Basophils # (Auto) 0.0 x10^3/uL (0.0-0.2) Sodium Level 138 mmol/L (136-145) Potassium Level 4.3 mmol/L (3.5-5.1) Chloride Level 102 mmol/L (98-107) Carbon Dioxide Level 30 mmol/L (21-32) Anion Gap 6 (6-14) Blood Urea Nitrogen 41 mg/dL (8-26) Creatinine 2.2 mg/dL (0.7-1.3) Estimated GFR (Cockcroft-Gault) 28.9 Glucose Level 113 mg/dL (70-99) Calcium Level 8.1 mg/dL (8.5-10.1) Medications Active Scripts Medications Dose Route/Sig Max Daily Dose Days Date Category Albuterol Sulfate Neb Soln (Albuterol Sulfate) 2.5 Mg/3 Ml Vial.neb 1 Vial NEB QID PRN 01/20/22 Reported Metoprolol Succinate ( Xl ) (Metoprolol Succinate) 25 Mg Tab.er.24h 2 Tab PO DAILY 01/20/22 Reported Anoro Ellipta 62.5-25 Mcg Inh (Umeclidinium Brm/Vilanterol Tr) 1 Each Disk.w.dev 1 Puff INH DAILY 01/20/22 Reported Eliquis (Apixaban) 5 Mg Tablet 1 Tab PO BID 01/20/22 Reported Rosuvastatin Calcium 40 Mg Tablet 1 Tab PO DAILY 01/20/22 Reported Amlodipine Besylate 5 Mg Tablet 1 Tab PO DAILY 01/20/22 Reported Lisinopril 20 Mg Tablet 1 Tab PO DAILY 01/20/22 Reported Potassium Chloride 20 Meq Tablet.er 1 Tab PO DAILY 01/20/22 Reported Furosemide 40 Mg Tablet 1 Tab PO DAILY 01/20/22 Reported No Known Medications Prior To Admisstion (Info) Each 1 Each 05/13/18 Reported Impression . FULL CONSULT DICTATED VAHID WITH CURRENT RX D/W JOSELINE JIMENEZ MD January 21, 2022 11:00
--- NOTE | 2022-01-21 11:24 | PDOC2 ---
FRANNY MOE BILINGUAL RESEARCH INTERVIEWER 01/21/22 1124: CARDIAC CONSULT DATE OF CONSULT Date of Consult DATE: 01/21/22 TIME: 10:57 REASON FOR CONSULT Reason for Consult: CHF exacerbation REFERRING PHYSICIAN Referring Physician: Priyank SOURCE Source: Chart review, Patient HISTORY OF PRESENT ILLNESS HISTORY OF PRESENT ILLNESS This is an 81 yo male admitted for complains of cough and shortness of breath. He recently went to his PCP and was placed on lasix but has not filled his Rx. Hx of COPD and uses O2 at home. No fever or chills. He has been coughing more frequent with increasing amount of yellowish sputum and with some nasal congestion as well. Has gained about 20 pounds in the last 3 months. He was taken off lasix by his PCP due to his renal insufficiency. He does have edematous leg but reports not significantly more swollen than his baseline. Denies any chest pain and no palpitations. He also has been having dribbling when he urinates and at times feels like incomplete emptying of his bladder. His UOP has also decreased. No nausea, vomiting or diarrhea. 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 PAST MEDICAL HISTORY Cardiovascular: AFIB, CAD, CHF, HTN, Hyperlipidemia, Aortic stenosis, Other (High grade AV block) Pulmonary: COPD CENTRAL NERVOUS SYSTEM: Other (No pertinent history) GI: No pertinent hx Heme/Onc: Anemia NOS Hepatobiliary: No pertinent hx Psych: No pertinent hx Musculoskeletal: Osteoarthritis Rheumatologic: No pertinent hx Infectious disease: No pertinent hx Renal/: Chronic renal insuff Endocrine: No pertinent hx Dermatology: No pertinent hx PAST SURGICAL HISTORY Past Surgical History: CABG (KELLOGG to the LAD, SVG to PDA SVG to first obtuse marginal; 2016), Cataract Removal, Other (status post coronary gram 2019 occluded vein graft to the PDA with other patent conduits, PCI to the RCA 2018; corneal transplant) FAMILY HISTORY Family History: Stroke SOCIAL HISTORY Smoke: <1 pack per day ALCOHOL: occassional Drugs: None Lives: with Family CURRENT MEDICATIONS CURRENT MEDICATIONS Current Medications Medications (Trade) Dose Ordered Sig/Thanh Route PRN Reason Start Time Stop Time Status Last Admin Dose Admin Morphine Sulfate (Morphine Sulfate) 2 mg PRN Q15MIN PRN IV/SQ PAIN GREATER THAN 3/10 01/20/22 13:45 01/21/22 13:44 01/20/22 15:13 Furosemide (Lasix) 40 mg DAILY IVP 01/21/22 09:00 01/21/22 03:48 DC 01/20/22 15:24 Ceftriaxone Sodium (Rocephin) 1 gm 1X ONCE IVP 01/20/22 15:15 01/20/22 15:16 DC 01/20/22 15:23 Ceftriaxone Sodium (Rocephin) 1 gm DAILY IVP 01/21/22 09:00 01/21/22 08:14 Doxycycline Hyclate 100 mg/ Dextrose 100 ml @ 50 mls/hr BID IV 01/20/22 21:00 01/21/22 08:14 Albuterol/ Ipratropium (Duoneb) 3 ml RTQID NEB 01/20/22 20:00 01/21/22 07:29 Zolpidem Tartrate (Ambien) 5 mg PRN QHS PRN PO INSOMNIA, MAY REPEAT IN 1HR 01/20/22 16:15 01/20/22 21:30 Morphine Sulfate (Morphine Sulfate) 2 mg PRN Q1HR PRN IV PAIN 01/20/22 16:15 01/21/22 03:15 Acetaminophen/ Hydrocodone Bitart (Lortab 5/325) 2 tab PRN Q4HRS PRN PO MODERATE PAIN, SEVERE PAIN 01/20/22 16:15 01/21/22 08:20 Guaifenesin/ Codeine Phosphate (Robitussin Ac) 5 ml PRN Q6HRS PRN PO COUGH 01/20/22 16:30 01/20/22 21:33 Guaifenesin (MUCINEX ER with DM) 1 tab BID PO 01/20/22 21:00 01/21/22 08:15 Amlodipine Besylate (Norvasc) 5 mg DAILY PO 01/21/22 09:00 01/21/22 08:23 Apixaban (Eliquis) 2.5 mg BID PO 01/20/22 21:00 01/21/22 08:16 Lisinopril (Prinivil) 20 mg DAILY PO 01/21/22 09:00 01/21/22 08:15 Metoprolol Succinate (Toprol Xl) 50 mg DAILY PO 01/21/22 09:00 01/21/22 08:15 Atorvastatin Calcium (Lipitor) 80 mg DAILY PO 01/21/22 09:00 01/21/22 08:15 Furosemide (Lasix) 20 mg DAILY IVP 01/21/22 09:00 01/21/22 08:15 Methylprednisolone Sodium Succinate (SOLU-Medrol 40MG VIAL) 40 mg Q12HR IV 01/21/22 10:00 01/21/22 10:52 ALLERGIES ALLERGIES: Coded Allergies: naproxen (Verified Allergy, Intermediate, mild rash, 01/21/22) ROS Review of System 14 point ROS evlauated with pertinent positives noted per HPI PHYSICAL EXAM General: Alert, Oriented X3, Cooperative, No acute distress HEENT: Atraumatic, Mucous membr. moist/pink Lungs: Other (diminished bases) Heart: Normal S1, Normal S2, Other (AFIB rate controlled with V pacing; 4/6 systolic murmur lopudest to FITO border) Abdomen: Soft, No tenderness Extremities: No cyanosis, Other (2-3+ bilateral LE pitting edema) Skin: No breakdown, No significant lesion Neuro: Normal speech, Sensation intact Psych/Mental Status: Mental status NL, Mood NL MUSCULOSKELETAL: Osteoarthritic changes both hands VITALS/I&O VITALS/I&O: Vital Signs Date Time Temp Pulse Resp B/P (MAP) Pulse Ox O2 Delivery O2 Flow Rate FiO2 01/21/22 08:50 20 97 Nasal Cannula 3.0 01/21/22 08:23 63 108/53 01/21/22 07:00 98.0 98.0 I & O 01/20/22 01/20/22 01/21/22 15:00 23:00 07:00 Intake Total 200 ml Output Total 100 ml Balance 100 ml LABS Lab: Laboratory Tests Test 01/20/22 13:40 01/20/22 14:40 01/20/22 15:06 01/20/22 15:42 White Blood Count 16.8 x10^3/uL (4.0-11.0) H Red Blood Count 3.81 x10^6/uL (4.30-5.70) L Hemoglobin 11.5 g/dL (13.0-17.5) L Hematocrit 34.7 % (39.0-53.0) L Mean Corpuscular Volume 91 fL (79-100) Mean Corpuscular Hemoglobin 30 pg (25-35) Mean Corpuscular Hemoglobin Concent 33 g/dL (31-37) Red Cell Distribution Width 14.8 % (11.5-14.5) H Platelet Count 166 x10^3/uL (140-400) Neutrophils (%) (Auto) 89 % (31-73) H Lymphocytes (%) (Auto) 7 % (24-48) L Monocytes (%) (Auto) 4 % (0-9) Eosinophils (%) (Auto) 0 % (0-3) Basophils (%) (Auto) 0 % (0-3) Neutrophils # (Auto) 14.9 x10^3/uL (1.8-7.7) H Lymphocytes # (Auto) 1.1 x10^3/uL (1.0-4.8) Monocytes # (Auto) 0.7 x10^3/uL (0.0-1.1) Eosinophils # (Auto) 0.0 x10^3/uL (0.0-0.7) Basophils # (Auto) 0.0 x10^3/uL (0.0-0.2) Segmented Neutrophils % 87 % (35-66) H Lymphocytes % 8 % (24-48) L Monocytes % 5 % (0-10) Platelet Estimate Adequate (ADEQUATE) Anisocytosis Slight Sodium Level 138 mmol/L (136-145) Potassium Level 4.7 mmol/L (3.5-5.1) Chloride Level 101 mmol/L (98-107) Carbon Dioxide Level 28 mmol/L (21-32) Anion Gap 9 (6-14) Blood Urea Nitrogen 34 mg/dL (8-26) H Creatinine 1.9 mg/dL (0.7-1.3) H Estimated GFR (Cockcroft-Gault) 34.2 BUN/Creatinine Ratio 18 (6-20) Glucose Level 119 mg/dL (70-99) H Calcium Level 8.6 mg/dL (8.5-10.1) Magnesium Level 1.8 mg/dL (1.8-2.4) Total Bilirubin 1.0 mg/dL (0.2-1.0) Aspartate Amino Transferase (AST) 23 U/L (15-37) Alanine Aminotransferase (ALT) 21 U/L (16-63) Alkaline Phosphatase 98 U/L (46-116) Troponin I High Sensitivity 37 ng/L (4-75) VN-Uhh-W-Type Natriuretic Peptide 6763 pg/mL (0-449) H Total Protein 6.6 g/dL (6.4-8.2) Albumin 3.8 g/dL (3.4-5.0) Albumin/Globulin Ratio 1.4 (1.0-1.7) Procalcitonin < 0.10 ng/mL (0.00-0.10) Influenza Type A Antigen Negative (NEGATIVE) Influenza Type B Antigen Negative (NEGATIVE) SARS-CoV-2 Antigen (Rapid) Negative (NEGATIVE) Lactic Acid Level 0.6 mmol/L (0.4-2.0) Urine Collection Type Unknown Urine Color (Auto) Light yellow Urine Turbidity Clear Urine pH (Auto) 5.5 (<5.0-8.0) Urine Specific [place] 1.016 (1.000-1.030) Urine Protein (Auto) 100 mg/dL (Negative) Urine Glucose (Auto)(UA) Negative mg/dL (Negative) Urine Ketones (Auto) Negative mg/dL (Negative) Urine Blood (Auto) Moderate (Negative) Urine Nitrite Negative (Negative) Urine Bilirubin (Auto) Negative (Negative) Urine Urobilinogen (Auto) Normal mg/dL (Normal) Urine Leukocyte Esterase (Auto) Negative (Negative) Urine RBC 11-20 /HPF (0-2) Urine WBC 1-4 /HPF (0-4) Urine Squamous Epithelial Cells Few /LPF Urine Bacteria 0 /HPF (0-FEW) Urine Hyaline Casts Moderate /HPF Urine Mucus Mod /LPF Test 01/20/22 16:33 01/20/22 20:30 01/21/22 03:25 Troponin I High Sensitivity 45 ng/L (4-75) 51 ng/L (4-75) White Blood Count 11.0 x10^3/uL (4.0-11.0) Red Blood Count 3.11 x10^6/uL (4.30-5.70) L Hemoglobin 9.4 g/dL (13.0-17.5) L Hematocrit 28.4 % (39.0-53.0) L Mean Corpuscular Volume 91 fL (79-100) Mean Corpuscular Hemoglobin 30 pg (25-35) Mean Corpuscular Hemoglobin Concent 33 g/dL (31-37) Red Cell Distribution Width 14.7 % (11.5-14.5) H Platelet Count 132 x10^3/uL (140-400) L Neutrophils (%) (Auto) 81 % (31-73) H Lymphocytes (%) (Auto) 12 % (24-48) L Monocytes (%) (Auto) 7 % (0-9) Eosinophils (%) (Auto) 0 % (0-3) Basophils (%) (Auto) 0 % (0-3) Neutrophils # (Auto) 8.9 x10^3/uL (1.8-7.7) H Lymphocytes # (Auto) 1.3 x10^3/uL (1.0-4.8) Monocytes # (Auto) 0.8 x10^3/uL (0.0-1.1) Eosinophils # (Auto) 0.0 x10^3/uL (0.0-0.7) Basophils # (Auto) 0.0 x10^3/uL (0.0-0.2) Sodium Level 138 mmol/L (136-145) Potassium Level 4.3 mmol/L (3.5-5.1) Chloride Level 102 mmol/L (98-107) Carbon Dioxide Level 30 mmol/L (21-32) Anion Gap 6 (6-14) Blood Urea Nitrogen 41 mg/dL (8-26) H Creatinine 2.2 mg/dL (0.7-1.3) H Estimated GFR (Cockcroft-Gault) 28.9 Glucose Level 113 mg/dL (70-99) H Calcium Level 8.1 mg/dL (8.5-10.1) L Laboratory Tests 01/20/22 13:40 01/21/22 03:25 Laboratory Tests 01/20/22 13:40 01/21/22 03:25 ECHOCARDIOGRAM ECHOCARDIOGRAM TTE 09/03/2021 [facility] Normal left ventricular systolic function, estimated ejection fraction is 60%. Mild concentric hypertrophy. The right ventricular size, wall thickness and systolic function are normal. Pacemaker lead present in the ventricle. Moderate biatrial dilatation There is severe mitral annular calcification without stenosis. Mild mitral valve regurgitation, trace tricuspid valve regurgitation. Severely sclerotic aortic valve, moderate stenosis (MG= 20 mmHg, peak velocity= 2.8 m/sec, DI= 0.38, ELIUD= 1.3 cm), no regurgitation. Estimated Peak Systolic PA Pressure 26 mmHg The sinuses of Valsalva are mildly dilated. ASSESSMENT/PLAN ASSESSMENT/PLAN 1. Acute on chronic respiratory failure with AECOPD, CHF and possible PNA 2. Acute on chronic diastolic CHF 3. 4. CAD; past CABG and PCI 5. 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 Medtr[employer]. Recent interrogation 01/08/2022 revealed no significant arrhythmias, nml device with 11 yrs battery life. Chronic RBBB 6. PAFIB: presently V paced with AFIB rate controlled. on home eliquis 7. HTN: controlled 9. HLP 10. FILEMON on CKD: baseline per review this yr was 1.7. nephrology consulted Recommendations 1. Antibiotic therapy per PCP 2. Lasix therapy, monitor lytes 3. Secondary prevention measures 4. Continue rate control. Low dose eliquis for stroke prevention 5. Limited TTE pending 6. Supportive care. Avoid nephrotoxins BLAS BERGERON MD 01/21/22 1540: CARDIAC CONSULT ASSESSMENT/PLAN ASSESSMENT/PLAN Patient seen and examined He reports feeling mildly better. I agree with our nurse practitioners assessment and plan. Acute on chronic respiratory failure with AECOPD, CHF and possible PNA Acute on chronic diastolic CHF . Recheck echo. 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 [employer]tr[employer]. Recent interrogation 01/08/2022 revealed no significant arrhythmias, nml device with 11 yrs battery life. Chronic RBBB PAFIB: presently V paced with AFIB rate controlled. on home eliquis HTN: controlled HLP FILEMON on CKD: baseline per review this yr was 1.7. nephrology consulted FRANNY MOE APRN January 21, 2022 11:24 BLAS BERGERON MD January 21, 2022 15:40
--- NOTE | 2022-01-21 12:30 | PDOC ---
[employer] PROGRESS NOTE Date of Service DOS: DATE: 01/21/22 TIME: 12:23 Chief Complaint Chief Complaint Community-acquired pneumonia, possible gram-negative or possible gram-positive organism Acute on chronic respiratory failure with hypoxia Acute COPD exacerbation Acute CHF exacerbation CKD 3b Elevated BNP and likely CHF exacerbation Degenerative joint disease of left hip Plan: Patient received Rocephin and Lasix in the ED We will continue treatment with Rocephin IV and doxycycline IV Solu-Medrol every 12 house. Scheduled DuoNeb and consultation to pulmonology ECHO, cards consult Daily lasix Will provide gentle hydration and follow renal function, nephro consult for ckd Pain management for DJD left hip Resume home medications FEN - Cardiac diet PPX - Eliquis FULL CODE/patient names his daughter (Christine Jacobo) as surrogate decision- maker Dispo - inpatient for above History of Present Illness History of Present Illness 01/21 Patient evaluated at bedside. He was sitting up eating lunch. Intermittently coughing harshly. Continuing IV antibiotics and Solu-Medrol. Daily Lasix. Patient said at home over the past week or so he has been unable to complete most of his tasks due to shortness of breath. Will add on therapy. Underwriter recommendations reviewed. Continue current otherwise. Discussed with bedside RN. Vitals/I&O Vitals/I&O: Vital Signs Date Time Temp Pulse Resp B/P (MAP) Pulse Ox O2 Delivery O2 Flow Rate FiO2 01/21/22 11:12 Nasal Cannula 3.0 01/21/22 11:00 98.4 61 18 96/50 (65) 97 98.4 I & O 01/20/22 01/20/22 01/21/22 15:00 23:00 07:00 Intake Total 200 ml Output Total 100 ml Balance 100 ml Physical Exam General: Alert, Oriented X3, Cooperative Heart: Regular rate, Normal S1, Normal S2 Lungs: Other (wheezing, coarse) Abdomen: Normal bowel sounds, Soft, No tenderness Extremities: Other (bilateral lower extremity edema) Skin: No rashes, No breakdown, No significant lesion Labs Labs: Laboratory Tests Test 01/20/22 13:40 01/20/22 14:40 01/20/22 15:06 01/20/22 15:42 White Blood Count 16.8 x10^3/uL (4.0-11.0) Red Blood Count 3.81 x10^6/uL (4.30-5.70) Hemoglobin 11.5 g/dL (13.0-17.5) Hematocrit 34.7 % (39.0-53.0) Mean Corpuscular Volume 91 fL (79-100) Mean Corpuscular Hemoglobin 30 pg (25-35) Mean Corpuscular Hemoglobin Concent 33 g/dL (31-37) Red Cell Distribution Width 14.8 % (11.5-14.5) Platelet Count 166 x10^3/uL (140-400) Neutrophils (%) (Auto) 89 % (31-73) Lymphocytes (%) (Auto) 7 % (24-48) Monocytes (%) (Auto) 4 % (0-9) Eosinophils (%) (Auto) 0 % (0-3) Basophils (%) (Auto) 0 % (0-3) Neutrophils # (Auto) 14.9 x10^3/uL (1.8-7.7) Lymphocytes # (Auto) 1.1 x10^3/uL (1.0-4.8) Monocytes # (Auto) 0.7 x10^3/uL (0.0-1.1) Eosinophils # (Auto) 0.0 x10^3/uL (0.0-0.7) Basophils # (Auto) 0.0 x10^3/uL (0.0-0.2) Segmented Neutrophils % 87 % (35-66) Lymphocytes % 8 % (24-48) Monocytes % 5 % (0-10) Platelet Estimate Adequate (ADEQUATE) Anisocytosis Slight Sodium Level 138 mmol/L (136-145) Potassium Level 4.7 mmol/L (3.5-5.1) Chloride Level 101 mmol/L (98-107) Carbon Dioxide Level 28 mmol/L (21-32) Anion Gap 9 (6-14) Blood Urea Nitrogen 34 mg/dL (8-26) Creatinine 1.9 mg/dL (0.7-1.3) Estimated GFR (Cockcroft-Gault) 34.2 BUN/Creatinine Ratio 18 (6-20) Glucose Level 119 mg/dL (70-99) Calcium Level 8.6 mg/dL (8.5-10.1) Magnesium Level 1.8 mg/dL (1.8-2.4) Total Bilirubin 1.0 mg/dL (0.2-1.0) Aspartate Amino Transf (AST/SGOT) 23 U/L (15-37) Alanine Aminotransferase (ALT/SGPT) 21 U/L (16-63) Alkaline Phosphatase 98 U/L (46-116) Troponin I High Sensitivity 37 ng/L (4-75) AC-Wjy-H-Type Natriuretic Peptide 6763 pg/mL (0-449) Total Protein 6.6 g/dL (6.4-8.2) Albumin 3.8 g/dL (3.4-5.0) Albumin/Globulin Ratio 1.4 (1.0-1.7) Procalcitonin < 0.10 ng/mL (0.00-0.10) Influenza Type A Antigen Negative (NEGATIVE) Influenza Type B Antigen Negative (NEGATIVE) SARS-CoV-2 Antigen (Rapid) Negative (NEGATIVE) Lactic Acid Level 0.6 mmol/L (0.4-2.0) Urine Collection Type Unknown Urine Color (Auto) Light yellow Urine Turbidity Clear Urine pH (Auto) 5.5 (<5.0-8.0) Urine Specific [place] 1.016 (1.000-1.030) Urine Protein (Auto) 100 mg/dL (Negative) Urine Glucose (Auto)(UA) Negative mg/dL (Negative) Urine Ketones (Auto) Negative mg/dL (Negative) Urine Blood (Auto) Moderate (Negative) Urine Nitrite Negative (Negative) Urine Bilirubin (Auto) Negative (Negative) Urine Urobilinogen (Auto) Normal mg/dL (Normal) Urine Leukocyte Esterase (Auto) Negative (Negative) Urine RBC 11-20 /HPF (0-2) Urine WBC 1-4 /HPF (0-4) Urine Squamous Epithelial Cells Few /LPF Urine Bacteria 0 /HPF (0-FEW) Urine Hyaline Casts Moderate /HPF Urine Mucus Mod /LPF Test 01/20/22 16:33 01/20/22 20:30 01/21/22 03:25 Troponin I High Sensitivity 45 ng/L (4-75) 51 ng/L (4-75) White Blood Count 11.0 x10^3/uL (4.0-11.0) Red Blood Count 3.11 x10^6/uL (4.30-5.70) Hemoglobin 9.4 g/dL (13.0-17.5) Hematocrit 28.4 % (39.0-53.0) Mean Corpuscular Volume 91 fL (79-100) Mean Corpuscular Hemoglobin 30 pg (25-35) Mean Corpuscular Hemoglobin Concent 33 g/dL (31-37) Red Cell Distribution Width 14.7 % (11.5-14.5) Platelet Count 132 x10^3/uL (140-400) Neutrophils (%) (Auto) 81 % (31-73) Lymphocytes (%) (Auto) 12 % (24-48) Monocytes (%) (Auto) 7 % (0-9) Eosinophils (%) (Auto) 0 % (0-3) Basophils (%) (Auto) 0 % (0-3) Neutrophils # (Auto) 8.9 x10^3/uL (1.8-7.7) Lymphocytes # (Auto) 1.3 x10^3/uL (1.0-4.8) Monocytes # (Auto) 0.8 x10^3/uL (0.0-1.1) Eosinophils # (Auto) 0.0 x10^3/uL (0.0-0.7) Basophils # (Auto) 0.0 x10^3/uL (0.0-0.2) Sodium Level 138 mmol/L (136-145) Potassium Level 4.3 mmol/L (3.5-5.1) Chloride Level 102 mmol/L (98-107) Carbon Dioxide Level 30 mmol/L (21-32) Anion Gap 6 (6-14) Blood Urea Nitrogen 41 mg/dL (8-26) Creatinine 2.2 mg/dL (0.7-1.3) Estimated GFR (Cockcroft-Gault) 28.9 Glucose Level 113 mg/dL (70-99) Calcium Level 8.1 mg/dL (8.5-10.1) Assessment and Plan Assessmemt and Plan Problems Medical Problems: (1) Bilateral pneumonia Status: Acute (2) CHF exacerbation Status: Acute (3) Chronic renal failure Status: Acute (4) Pleural effusion Status: Acute Comment Review of Relevant I have reviewed the following items earl (where applicable) has been applied. Medications: Current Medications Medications (Trade) Dose Ordered Sig/Thanh Route PRN Reason Start Time Stop Time Status Last Admin Dose Admin Morphine Sulfate (Morphine Sulfate) 2 mg PRN Q15MIN PRN IV/SQ PAIN GREATER THAN 3/10 01/20/22 13:45 01/21/22 13:44 01/20/22 15:13 Furosemide (Lasix) 40 mg DAILY IVP 01/21/22 09:00 01/21/22 03:48 DC 01/20/22 15:24 Ceftriaxone Sodium (Rocephin) 1 gm 1X ONCE IVP 01/20/22 15:15 01/20/22 15:16 DC 01/20/22 15:23 Ceftriaxone Sodium (Rocephin) 1 gm DAILY IVP 01/21/22 09:00 01/21/22 08:14 Doxycycline Hyclate 100 mg/ Dextrose 100 ml @ 50 mls/hr BID IV 01/20/22 21:00 01/21/22 08:14 Albuterol/ Ipratropium (Duoneb) 3 ml RTQID NEB 01/20/22 20:00 01/21/22 11:11 Zolpidem Tartrate (Ambien) 5 mg PRN QHS PRN PO INSOMNIA, MAY REPEAT IN 1HR 01/20/22 16:15 01/20/22 21:30 Morphine Sulfate (Morphine Sulfate) 2 mg PRN Q1HR PRN IV PAIN 01/20/22 16:15 01/21/22 03:15 Acetaminophen/ Hydrocodone Bitart (Lortab 5/325) 2 tab PRN Q4HRS PRN PO MODERATE PAIN, SEVERE PAIN 01/20/22 16:15 01/21/22 08:20 Guaifenesin/ Codeine Phosphate (Robitussin Ac) 5 ml PRN Q6HRS PRN PO COUGH 01/20/22 16:30 01/20/22 21:33 Guaifenesin (MUCINEX ER with DM) 1 tab BID PO 01/20/22 21:00 01/21/22 08:15 Amlodipine Besylate (Norvasc) 5 mg DAILY PO 01/21/22 09:00 01/21/22 08:23 Apixaban (Eliquis) 2.5 mg BID PO 01/20/22 21:00 01/21/22 08:16 Lisinopril (Prinivil) 20 mg DAILY PO 01/21/22 09:00 01/21/22 08:15 Metoprolol Succinate (Toprol Xl) 50 mg DAILY PO 01/21/22 09:00 01/21/22 08:15 Atorvastatin Calcium (Lipitor) 80 mg DAILY PO 01/21/22 09:00 01/21/22 08:15 Furosemide (Lasix) 20 mg DAILY IVP 01/21/22 09:00 01/21/22 08:15 Methylprednisolone Sodium Succinate (SOLU-Medrol 40MG VIAL) 40 mg Q12HR IV 01/21/22 10:00 01/21/22 10:52 Justifications for Admission Other Justification ARI KAUFMAN MD January 21, 2022 12:30
--- NOTE | 2022-01-21 12:32 | EKG ---
[facility] [address] [place] [address] Test Date: 2022-01-21 Test Time: 12:06:35 Pat Name: CONRADO VELIZ Department: Room: [facility] 1 Gender: M Sole Ruffer: [place] : 1940 Requested By: TANYA PITTS Order Number: [id number] Reading MD: Mino Harley MD Measurements Intervals [place] Rate: 74 P: 0 TN: 330 QRS: -68 QRSD: 166 T: 26 QT: 430 QTc: 478 Interpretive Statements ATRIAL FIBRILLATION RBBB Electronically Signed On 01-26-2022 9:11:31 CDT by Mino Harley MD
[2022-01-21 15:00] VITALS: BP 104/58
--- NOTE | 2022-01-21 15:15 | NUR ---
SS following for discharge planning. SS reviewed pt chart and discussed with pt RN. Pt is currently requiring oxygen at three liters nasal canula. COVID19 negative. Pt on IV Lasix, IV Doxycycline, and IV Solu-Medrol. PT/OT ordered. SS will continue to follow for discharge planning.
[2022-01-21] MEDS: BUDESONIDE 0.5 MG/2 ML NEBU. NEB SCH ×2 (15:38→20:26)
--- NOTE | 2022-01-21 16:18 | CARD ---
MR#: [id number] Date of Study: 01/21/2022 Ordering Physician: TANYA PITTS, Referring Physician: TANYA PITTS Tech: Payton Nelson [facility] APPROVED REPORT EXAM: Two-dimensional and M-mode echocardiogram with Doppler and color Doppler. Other Information Quality : GoodHR: 47bpm Rhythm : Atrial Fibrillation INDICATION COPD Aortic Valve Disease Atrial Fibrillation Hypertension/HCVD Cardiac Disease: CAD 2D DIMENSIONS Left Atrium(2D)4.6 (1.6-4.0cm)IVSd1.8 (0.7-1.1cm) Aortic Root(2D)3.9 (2.0-3.7cm)LVDd4.7 (3.9-5.9cm) LVOT Diameter2.1 (1.8-2.4cm)PWd2.1 (0.7-1.1cm) LVDs3.1 (2.5-4.0cm)FS (%) 33.5 % SV64.5 ml Aortic Valve AoV Peak Teryr.301.5cm/sAoV VTI75.9cm AO Peak GR.36.4mmHgLVOT Peak Terry.121.1cm/s AO Mean GR.24mmHgAVA (VMAX)1.42cm2 Mitral Valve MV E Eehrqxkz769.3cm/sMV DECEL MUEJ472qb MV A Qgpzebfx560.3cm/sE/A Ratio1.0 Pulmonary Valve PV Peak Hdxivkkm024.4cm/s Tricuspid Valve TR P. Fjowqpbm890rz/sTR Peak Gr.23mmHg LEFT VENTRICLE The left ventricle is normal size. There is mild concentric left ventricular hypertrophy. The left ve ntricular systolic function is normal. LV Ejection Fraction is 55-60%. No regional wall motion abnorm alities noted. The left ventricular diastolic function is normal. No left ventricle thrombus noted on this study. There is no ventricular septal defect visualized. There is no left ventricular aneurysm. There is no mass noted in the left ventricle. RIGHT VENTRICLE The right ventricle is normal size. There is normal right ventricular wall thickness. The right ventr icular systolic function is normal. There is a device lead in the right ventricle. ATRIA The left atrium is mildly dilated. The right atrium size is normal. The interatrial septum is intact with no evidence for an atrial septal defect or patent foramen ovale as noted on 2-D or Doppler imagi ng. AORTIC VALVE The aortic valve is trileaflet. No aortic regurgitation is present. There is mild to moderate valvula r aortic stenosis. Calculated aortic valve area is 1.4 cm2 with maximum pressure gradient of 36.4 mmH g and mean pressure gradient of 24 mmHg. There is no aortic valvular vegetation. MITRAL VALVE The mitral valve leaflets are calcified. There is no evidence of mitral valve prolapse. There is no m itral valve stenosis. Doppler and Color-flow revealed mild to moderate mitral regurgitation. TRICUSPID VALVE The tricuspid valve is normal in structure and function. Doppler and Color Flow revealed mild tricusp id regurgitation. The pulmonary artery systolic pressure is estimated at less than 30 mmHg. There is no tricuspid valve prolapse or vegetation. There is no tricuspid valve stenosis. PULMONIC VALVE The pulmonary valve is normal in structure and function. There is no pulmonic valvular regurgitation. There is no pulmonic valvular stenosis. GREAT VESSELS The aortic root is normal in size. The ascending aorta is normal in size. There is mild pulmonary art dhaval dilatation. The IVC was not visualized. PERICARDIAL EFFUSION There is no pleural effusion. The pericardium appears normal. Critical Notification Critical Value: No <Conclusion> The left ventricle is normal size. The left ventricular systolic function is normal. LV Ejection Fraction is 55-60%. There is mild concentric left ventricular hypertrophy. There is a device lead in the right ventricle. No aortic regurgitation is present. There is mild to moderate valvular aortic stenosis. Calculated aortic valve area is 1.4 cm2 with maximum pressure gradient of 36.4 mmHg and mean pressure gradient of 24 mmHg. Doppler and Color-flow revealed mild to moderate mitral regurgitation. Doppler and Color Flow revealed mild tricuspid regurgitation. The pulmonary artery systolic pressure is estimated at less than 30 mmHg. Signed by : Steve Boswell MD Electronically Approved : 01/21/2022 16:18:13
[2022-01-21 19:43] VITALS: BP 104/49
[2022-01-21] MEDS: oxyCODONE/APAP 5/325 1 TAB TABLET PO PRN (20:52)
[2022-01-21] MEDS: ZOLPIDEM 5 MG TABLET. PO PRN (21:31)
[2022-01-21 23:28] VITALS: BP 121/58
[2022-01-22 07:00] VITALS: BP 114/45
[2022-01-22] MEDS: BUDESONIDE 0.5 MG/2 ML NEBU. NEB SCH ×2 (07:27→20:58)
[2022-01-22] MEDS: IPRATRPIUM/ALBUTEROL 0.5/2.5MG 3 ML NEBU. NEB SCH ×4 (07:27→20:58)
--- NOTE | 2022-01-22 08:56 | CONS ---
DATE OF CONSULTATION: 01/21/2022 ATTENDING PHYSICIAN: Dr. Yost. REASON FOR CONSULTATION: The patient is seen in pulmonary consultation at the request of Dr. Yost for abnormal x-ray, shortness of breath. HISTORY OF PRESENT ILLNESS: The patient is an 81-year-old that normally follows my partner, Dr. Ulloa, in the office. I reviewed the office records. He was last seen on 09/26 and at that time, he was instructed to resume Lasix, continue his maintenance Anoro and oxygen supplementation with exercise and at night. The patient has been more short of breath over the last 2-3 days. He states he also has some lower extremity edema. He did resume the Lasix under the direction of his primary care doctor. He now presents for increasing shortness of breath, cough productive of discolored sputum. He was having difficulty bringing up the sputum. He denies fever, chills or night sweats. No chest pain or pressure. He did notice some increasing lower extremity edema and paroxysmal nocturnal dyspnea. He had a chest x-ray, which I reviewed. There were some chronic changes. I do not appreciate any significant consolidation, though it is difficult to assess the possibility of acute superimposed pathology. PAST MEDICAL HISTORY: Remarkable for coronary artery disease status post coronary artery bypass grafting, COPD - at home utilizes Anoro and nebulized treatment. He also has a history of previous knee replacement, hypertension, hyperlipidemia, chronic AFib. PAST SURGICAL HISTORY: Status post coronary artery bypass grafting. He has had knee surgery in the past. ALLERGIES: NAPROSYN. CURRENT MEDICATIONS: List was reviewed. He is receiving IV doxycycline along with IV Rocephin, his home medications and steroids. HOME MEDICATIONS: List was reviewed. REVIEW OF SYSTEMS: CONSTITUTIONAL: No fever or chills. EYES: No changes in visual acuity. HENT: No nasal congestion or sore throat. PULMONARY: As indicated above. CARDIOVASCULAR: No chest pain, no pressure. GASTROINTESTINAL: No nausea, vomiting, diarrhea. GENITOURINARY: No dysuria or frequency. MUSCULOSKELETAL: No localized muscle aches or joint pains. SKIN: No new skin rashes. NEUROLOGIC: No headaches, diplopia or blurred vision. SOCIAL HISTORY: He is currently retired. Quit tobacco 30 years ago. Work as a process engineering manager. FAMILY HISTORY: No family history of lung disorders. PHYSICAL EXAMINATION: VITAL SIGNS: Stable. O2 saturation greater than 92%, currently on 3 liters. HEENT: Eyes: The sclerae were nonicteric. NECK: Jugular venous distention was not elevated. No lymphadenopathy. CHEST: Full expansion. LUNGS: Crackles in the bases with no wheezes. CARDIOVASCULAR: Regular rate and rhythm with S1, S2, no S3. ABDOMEN: Soft, nontender, nondistended. EXTREMITIES: No clubbing or cyanosis. 1+ edema. NEUROLOGIC: The patient was awake, alert, following commands. A detailed neuro exam was not performed. LABORATORY DATA: Reviewed. White count was initially elevated. Hemoglobin and hematocrit were noted. BUN and creatinine 41 and 2.2. He came in with a creatinine of 1.9. Serology for influenza and SARS-CoV-2 was negative. Chest x-ray as indicated above. IMPRESSION: 1. Acute on chronic hypoxemic respiratory failure, multifactorial. 2. Acute exacerbation of chronic obstructive pulmonary disease. 3. Abnormal x-ray, possible pneumonia. 4. Acute on chronic congestive heart failure. 5. Chronic kidney disease. 6. Coronary artery disease with previous coronary artery bypass grafting. 7. Chronic atrial fibrillation. 8. History of aortic stenosis. PLAN: 1. IV antibiotics and steroids. 2. IV diuresis. 3. Nebulized treatments. 4. Oxygen supplementation. 5. Monitor BUN and creatinine. I discussed the above with Dr. Forman, we will follow patient closely and make adjustments on his medical regimen. LIZ/NUBIA DR: Emanuel TID: [id number]
[2022-01-22] MEDS: FUROSEMIDE 20 MG/2 ML VIAL. IVP SCH (09:16)
[2022-01-22] MEDS: guaiFENesin DM 600/30MG 1 TAB TAB.ER.12H PO SCH ×2 (09:16→22:25)
[2022-01-22] MEDS: cefTRIAXone IV Push 1 GM VIAL. IVP SCH (09:17)
[2022-01-22] MEDS: DOXYCYCLINE HYCLATE 100 MG in IV DEXTROSE 5% 100ML 100 ML IV SCH ×2 (09:17→22:41)
[2022-01-22] MEDS: LISINOPRIL 20 MG TABLET PO SCH (09:17)
[2022-01-22] MEDS: methylPREDNISolone SOD SUCC PF 40 MG/ML VIAL. IV SCH ×2 (09:17→22:42)
[2022-01-22] MEDS: APIXABAN 5 MG TABLET. PO SCH ×2 (09:18→22:25)
[2022-01-22] MEDS: METOPROLOL SUCC 24HR ER 50 MG TAB.ER.24H. PO SCH (09:18)
[2022-01-22] MEDS: ATORVASTATIN CALCIUM 40 MG TABLET. PO SCH (09:18)
[2022-01-22] MEDS: HYDROcodone/APAP 5/325MG 1 TAB TABLET PO PRN ×4 (09:18→22:24)
--- NOTE | 2022-01-22 09:31 | PDOC ---
DATE OF SERVICE DATE: 01/22/22 TIME: 09:31 SUBJECTIVE ROS Stable, No complaints OBJECTIVE Vital Signs Vital Signs Date Time Temp Pulse Resp B/P (MAP) Pulse Ox O2 Delivery O2 Flow Rate FiO2 01/22/22 09:18 63 114/45 01/22/22 07:27 97 Nasal Cannula 3.0 01/22/22 07:00 98.0 18 98.0 I & 0 Intake and Output 01/22/22 07:00 Intake Total 590 ml Output Total 900 ml Balance -310 ml Intake Oral 590 ml Output Urine Total 900 ml PHYSICAL EXAM Physical Exam General: NAD HEENT: Atraumatic, OM moist Neck Supple Lungs: bibasilar rales, Non labored Heart: RRR, systolic murmur, midline sternotomy scar Cardiovascular: S1, S2 Abdomen: Normal bowel sounds, Soft, No tenderness Extremities: +1 bilateral leg edema Skin: No Rash Neuro:Grossly normal, moving all 4 extremities Psych/Mental Status: Mental status NL, Mood NL No [place], No CVA or SP tenderness DIAGNOSIS/ASSESSMENT Assessment & Plan ? FILEMON on CKD vs his baseline- C Patient doesnt know his baseline Creatinine . Supportive care, Avoid Nephrotoxins, Diuresis per cardiology . Labs Pending Strict I/O (UOP not recorded since admission) , daily standing weight . please obtain records/ labs from his primary [facility] CKD stage 3 B - Patient reports he follows with [facility] nephrology , has CKD stage 3, doesnt know his baseline Creatinine or eGFR . ? Kidney Bx approx 1 mo back . Obtain records from [facility] nephrology Renal cysts- US in Jul 2021 - Bilateral renal cysts. with the largest measuring 3.4 cm in the right kidney. Microscopic hematuria-Unsure if chronic liza with Hx of Bilateral Renal cysts .He follows with [facility] as OP Anemia - Drop in Hgb vs his baseline (? Hemoconc POA), Monitor . 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 PAFIB: COMMENT/RELEVANT DATA Meds Current Medications Medications (Trade) Dose Ordered Sig/Thanh Start Time Stop Time Status Last Admin Dose Admin Acetaminophen (Tylenol) 650 mg PRN Q6HRS PRN 01/20/22 16:15 Acetaminophen/ Hydrocodone Bitart (Lortab 5/325) 2 tab PRN Q4HRS PRN 01/20/22 16:15 01/22/22 09:18 2 TAB Al Hydroxide/Mg Hydroxide (Mylanta Plus Xs) 30 ml PRN Q3HRS PRN 01/20/22 16:15 Albuterol/ Ipratropium (Duoneb) 3 ml RTQID 01/20/22 20:00 01/22/22 07:27 3 ML Amlodipine Besylate (Norvasc) 5 mg DAILY 01/21/22 09:00 01/22/22 09:18 5 MG Apixaban (Eliquis) 2.5 mg BID 01/20/22 21:00 01/22/22 09:18 2.5 MG Atorvastatin Calcium (Lipitor) 80 mg DAILY 01/21/22 09:00 01/22/22 09:18 80 MG Benzonatate (Tessalon Perle) 100 mg TID PRN 01/20/22 16:30 Budesonide (Pulmicort) 0.5 mg RTBID 01/21/22 13:00 01/22/22 07:27 0.5 MG Calcium Carbonate/ Glycine (Tums) 500 mg PRN Q3HRS PRN 01/20/22 16:15 Ceftriaxone Sodium (Rocephin) 1 gm DAILY 01/21/22 09:00 01/22/22 09:17 1 GM Doxycycline Hyclate 100 mg/ Dextrose 100 ml @ 50 mls/hr BID 01/20/22 21:00 01/22/22 09:17 50 MLS/HR Fentanyl Citrate (Fentanyl 2ml Vial) 50 mcg PRN Q1HR PRN 01/20/22 15:30 01/21/22 15:29 DC Furosemide (Lasix) 40 mg STK-MED ONCE 01/20/22 15:14 01/22/22 09:27 DC Guaifenesin (MUCINEX ER with DM) 1 tab BID 01/20/22 21:00 01/22/22 09:16 1 TAB Guaifenesin/ Codeine Phosphate (Robitussin Ac) 5 ml PRN Q6HRS PRN 01/20/22 16:30 5/3/22 21:33 5 ML Lisinopril (Prinivil) 20 mg DAILY 01/21/22 09:00 01/22/22 09:17 20 MG Magnesium Hydroxide (Milk Of Magnesia) 2,400 mg PRN Q12HR PRN 01/20/22 16:15 Methylprednisolone Sodium Succinate (SOLU-Medrol 40MG VIAL) 40 mg Q12HR 01/21/22 10:00 01/22/22 09:17 40 MG Metoprolol Succinate (Toprol Xl) 50 mg DAILY 01/21/22 09:00 01/22/22 09:18 50 MG Morphine Sulfate (Morphine Sulfate) 2 mg PRN Q1HR PRN 01/20/22 16:15 01/21/22 03:15 2 MG Non-Formulary Medication (Umeclidinium Brm/Vilanterol Tr (Anoro Ellipta 62.5-25 Mcg Inh)) 1 puff DAILY 01/21/22 09:00 01/20/22 19:34 DC Ondansetron HCl (Zofran) 4 mg PRN Q6HRS PRN 01/20/22 16:15 Oxycodone/ Acetaminophen (Percocet 5/325) 1 tab PRN Q4HRS PRN 01/20/22 16:15 01/21/22 20:52 1 TAB Zolpidem Tartrate (Ambien) 5 mg PRN QHS PRN 01/20/22 16:15 01/21/22 21:31 5 MG Results All relevant outside records, renal labs, imaging studies, telemetry/EKG's were reviewed. Justicifation of Admission Dx: Justifications for Admission: Justification of Admission Dx: N/A KATIE STAHL MD January 22, 2022 09:31
--- NOTE | 2022-01-22 10:22 | PDOC ---
PULMONARY PROGRESS NOTES DATE: 01/22/22 TIME: 10:18 Subjective Feels better. Vitals Vital Signs Date Time Temp Pulse Resp B/P (MAP) Pulse Ox O2 Delivery O2 Flow Rate FiO2 01/22/22 09:18 63 114/45 01/22/22 07:27 97 Nasal Cannula 3.0 01/22/22 07:00 98.0 18 98.0 ROS: No Chest Pain, No Increase Cough General: Alert, No acute distress Lungs: Other (Decreased breath sounds at the bases.) Cardiovascular: S1 Abdomen: Soft Neuro Exam: Alert Extremities: Other (2+ pitting edema.) Labs Laboratory Tests Test 01/20/22 13:40 01/20/22 14:40 01/20/22 15:06 01/20/22 15:42 White Blood Count 16.8 x10^3/uL (4.0-11.0) Red Blood Count 3.81 x10^6/uL (4.30-5.70) Hemoglobin 11.5 g/dL (13.0-17.5) Hematocrit 34.7 % (39.0-53.0) Mean Corpuscular Volume 91 fL (79-100) Mean Corpuscular Hemoglobin 30 pg (25-35) Mean Corpuscular Hemoglobin Concent 33 g/dL (31-37) Red Cell Distribution Width 14.8 % (11.5-14.5) Platelet Count 166 x10^3/uL (140-400) Neutrophils (%) (Auto) 89 % (31-73) Lymphocytes (%) (Auto) 7 % (24-48) Monocytes (%) (Auto) 4 % (0-9) Eosinophils (%) (Auto) 0 % (0-3) Basophils (%) (Auto) 0 % (0-3) Neutrophils # (Auto) 14.9 x10^3/uL (1.8-7.7) Lymphocytes # (Auto) 1.1 x10^3/uL (1.0-4.8) Monocytes # (Auto) 0.7 x10^3/uL (0.0-1.1) Eosinophils # (Auto) 0.0 x10^3/uL (0.0-0.7) Basophils # (Auto) 0.0 x10^3/uL (0.0-0.2) Segmented Neutrophils % 87 % (35-66) Lymphocytes % 8 % (24-48) Monocytes % 5 % (0-10) Platelet Estimate Adequate (ADEQUATE) Anisocytosis Slight Sodium Level 138 mmol/L (136-145) Potassium Level 4.7 mmol/L (3.5-5.1) Chloride Level 101 mmol/L (98-107) Carbon Dioxide Level 28 mmol/L (21-32) Anion Gap 9 (6-14) Blood Urea Nitrogen 34 mg/dL (8-26) Creatinine 1.9 mg/dL (0.7-1.3) Estimated GFR (Cockcroft-Gault) 34.2 BUN/Creatinine Ratio 18 (6-20) Glucose Level 119 mg/dL (70-99) Calcium Level 8.6 mg/dL (8.5-10.1) Magnesium Level 1.8 mg/dL (1.8-2.4) Total Bilirubin 1.0 mg/dL (0.2-1.0) Aspartate Amino Transf (AST/SGOT) 23 U/L (15-37) Alanine Aminotransferase (ALT/SGPT) 21 U/L (16-63) Alkaline Phosphatase 98 U/L (46-116) Troponin I High Sensitivity 37 ng/L (4-75) IR-Err-I-Type Natriuretic Peptide 6763 pg/mL (0-449) Total Protein 6.6 g/dL (6.4-8.2) Albumin 3.8 g/dL (3.4-5.0) Albumin/Globulin Ratio 1.4 (1.0-1.7) Procalcitonin < 0.10 ng/mL (0.00-0.10) Influenza Type A Antigen Negative (NEGATIVE) Influenza Type B Antigen Negative (NEGATIVE) SARS-CoV-2 Antigen (Rapid) Negative (NEGATIVE) Lactic Acid Level 0.6 mmol/L (0.4-2.0) Urine Collection Type Unknown Urine Color (Auto) Light yellow Urine Turbidity Clear Urine pH (Auto) 5.5 (<5.0-8.0) Urine Specific Young 1.016 (1.000-1.030) Urine Protein (Auto) 100 mg/dL (Negative) Urine Glucose (Auto)(UA) Negative mg/dL (Negative) Urine Ketones (Auto) Negative mg/dL (Negative) Urine Blood (Auto) Moderate (Negative) Urine Nitrite Negative (Negative) Urine Bilirubin (Auto) Negative (Negative) Urine Urobilinogen (Auto) Normal mg/dL (Normal) Urine Leukocyte Esterase (Auto) Negative (Negative) Urine RBC 11-20 /HPF (0-2) Urine WBC 1-4 /HPF (0-4) Urine Squamous Epithelial Cells Few /LPF Urine Bacteria 0 /HPF (0-FEW) Urine Hyaline Casts Moderate /HPF Urine Mucus Mod /LPF Test 01/20/22 16:33 01/20/22 20:30 01/21/22 03:25 Troponin I High Sensitivity 45 ng/L (4-75) 51 ng/L (4-75) White Blood Count 11.0 x10^3/uL (4.0-11.0) Red Blood Count 3.11 x10^6/uL (4.30-5.70) Hemoglobin 9.4 g/dL (13.0-17.5) Hematocrit 28.4 % (39.0-53.0) Mean Corpuscular Volume 91 fL (79-100) Mean Corpuscular Hemoglobin 30 pg (25-35) Mean Corpuscular Hemoglobin Concent 33 g/dL (31-37) Red Cell Distribution Width 14.7 % (11.5-14.5) Platelet Count 132 x10^3/uL (140-400) Neutrophils (%) (Auto) 81 % (31-73) Lymphocytes (%) (Auto) 12 % (24-48) Monocytes (%) (Auto) 7 % (0-9) Eosinophils (%) (Auto) 0 % (0-3) Basophils (%) (Auto) 0 % (0-3) Neutrophils # (Auto) 8.9 x10^3/uL (1.8-7.7) Lymphocytes # (Auto) 1.3 x10^3/uL (1.0-4.8) Monocytes # (Auto) 0.8 x10^3/uL (0.0-1.1) Eosinophils # (Auto) 0.0 x10^3/uL (0.0-0.7) Basophils # (Auto) 0.0 x10^3/uL (0.0-0.2) Sodium Level 138 mmol/L (136-145) Potassium Level 4.3 mmol/L (3.5-5.1) Chloride Level 102 mmol/L (98-107) Carbon Dioxide Level 30 mmol/L (21-32) Anion Gap 6 (6-14) Blood Urea Nitrogen 41 mg/dL (8-26) Creatinine 2.2 mg/dL (0.7-1.3) Estimated GFR (Cockcroft-Gault) 28.9 Glucose Level 113 mg/dL (70-99) Calcium Level 8.1 mg/dL (8.5-10.1) Medications Active Scripts Medications Dose Route/Sig Max Daily Dose Days Date Category Albuterol Sulfate Neb Soln (Albuterol Sulfate) 2.5 Mg/3 Ml Vial.neb 1 Vial NEB QID PRN 01/20/22 Reported Metoprolol Succinate ( Xl ) (Metoprolol Succinate) 25 Mg Tab.er.24h 2 Tab PO DAILY 01/20/22 Reported Anoro Ellipta 62.5-25 Mcg Inh (Umeclidinium Brm/Vilanterol Tr) 1 Each Disk.w.dev 1 Puff INH DAILY 01/20/22 Reported Eliquis (Apixaban) 5 Mg Tablet 1 Tab PO BID 01/20/22 Reported Rosuvastatin Calcium 40 Mg Tablet 1 Tab PO DAILY 01/20/22 Reported Amlodipine Besylate 5 Mg Tablet 1 Tab PO DAILY 01/20/22 Reported Lisinopril 20 Mg Tablet 1 Tab PO DAILY 01/20/22 Reported Potassium Chloride 20 Meq Tablet.er 1 Tab PO DAILY 01/20/22 Reported Furosemide 40 Mg Tablet 1 Tab PO DAILY 01/20/22 Reported No Known Medications Prior To Admisstion (Info) Each 1 Each 05/13/18 Reported Impression . 1. Acute on chronic hypoxemic respiratory failure, multifactorial. 2. Acute exacerbation of chronic obstructive pulmonary disease. 3. Abnormal x-ray, possible pneumonia. 4. Acute on chronic congestive heart failure. 5. Chronic kidney disease. 6. Coronary artery disease with previous coronary artery bypass grafting. 7. Chronic atrial fibrillation. 8. History of aortic stenosis. Plan . 1. IV antibiotics and steroids. 2. IV diuresis. 3. Nebulized treatments. 4. Oxygen supplementation. 5. Monitor BUN and creatinine. 6. Patient's older CT chest from 2018 was reviewed and compared with the recent images. Patient has chronic pleural thickening with associated atelectasis. No intervention needed at present. KACEY SAMPSON MD January 22, 2022 10:22
[2022-01-22 11:00] VITALS: BP 95/48
--- NOTE | 2022-01-22 11:04 | PDOC ---
CARDIO Progress Notes Date and Time Date of Service 01/22/2022 Time of Evaluation 1100 Subjective Subjective: No Chest Pain, No shortness of breath, No Palpitations Vitals Vitals Vital Signs Date Time Temp Pulse Resp B/P (MAP) Pulse Ox O2 Delivery O2 Flow Rate FiO2 01/22/22 09:18 63 114/45 01/22/22 08:00 Nasal Cannula 3.0 01/22/22 07:27 97 01/22/22 07:00 98.0 18 98.0 Weight Weight [ ] Input and Output Intake and Output Intake and Output 01/22/22 07:00 Intake Total 590 ml Output Total 900 ml Balance -310 ml Intake Oral 590 ml Output Urine Total 900 ml Microbiology Micro Microbiology 01/20/22 Blood Culture - Preliminary, Resulted NO GROWTH AFTER 1 DAY Physical Exam HEENT: Neck Supple W Full Motion Chest: Symmetric LUNGS: Other (faint wheeze with upper rhonchi) Heart: irregularly irregular (AFIB rate controlled) Abdomen: Soft N/T Extremities: Other (2+ bilateral LE pitting edema) Neurology: alert, oriented, follow commands Assessment Assessment 1. Acute on chronic respiratory failure with AECOPD, CHF and possible PNA 2. Acute on chronic diastolic CHF: EF and WM nml per TTE. better compensated 3. Valvular insufficiency: Mild to moderate and MR, Mild TR: 4. CAD; past CABG and PCI, clinically stable 5. 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 [employer]. Recent interrogation 01/08/2022 revealed no significant arrhythmias, nml device with 11 yrs battery life. Chronic RBBB 6. PAFIB: presently V paced with AFIB rate controlled. on home eliquis 7. HTN: controlled 9. HLP 10. FILEMON on CKD: baseline per review this yr was 1.7. Cr worse at 2.9 possibly from overdiurese. I & O appears not accurate. no PVR. nephrology following Recommendations 1. Antibiotic therapy per PCP 2. Stop lasix. Start maintenance NS x1 L. Stop lisinopril 3. Secondary prevention measures 4. Continue rate control. Low dose eliquis for stroke prevention 5. Supportive care. Avoid nephrotoxins 6. Follow up with Dr. Connelly with [facility] cardiology as an outpt Justicifation of Admission Dx: Justifications for Admission: Justification of Admission Dx: Yes FRANNY MOE NEURODIAGNOSTIC TECHNICIAN January 22, 2022 11:04
[2022-01-22 11:45] LABS: CALCIUM 8.1 mg/dL (8.5-10.1); CREATININE 2.9 mg/dL (0.7-1.3); POTASSIUM 4.3 mmol/L (3.5-5.1)
[2022-01-22] MEDS ORDERED: IV NORMAL SALINE 1000ML BAG 1,000 ML IV ONE (12:15)
--- NOTE | 2022-01-22 12:39 | NUR ---
SS following up with discharge planning. SS reviewed pt chart and discussed with pt RN. Pt is currently requiring oxygen at three liters nasal canula. COVID19 negative. Pt has home oxygen. Pt on IV Solu-Medrol, IV Rocephin, and IV Doxycycline. PT/OT recommended retirement unit. SS met with pt and discussed discharge planning and retirement unit. Pt reported that he already goes to Cardiac Rehabilitation at [facility] for outpatient services. Pt reported that he pays $60/month for rehab and would prefer to continue Cardiac Rehab at this time. Pt currently declining retirement unit. SS will continue to follow for discharge planning.
[2022-01-22 15:00] VITALS: BP 95/44
[2022-01-22 19:00] VITALS: BP 99/47
--- NOTE | 2022-01-22 21:58 | PDOC ---
[employer] PROGRESS NOTE Date of Service DOS: DATE: 01/22/22 TIME: 21:57 Chief Complaint Chief Complaint Community-acquired pneumonia, possible gram-negative or possible gram-positive organism Acute on chronic respiratory failure with hypoxia Acute COPD exacerbation Acute CHF exacerbation CKD 3b Elevated BNP and likely CHF exacerbation Degenerative joint disease of left hip Plan: Patient received Rocephin and Lasix in the ED We will continue treatment with Rocephin IV and doxycycline IV Solu-Medrol every 12 house. Scheduled DuoNeb and consultation to pulmonology ECHO, cards consult Daily lasix Will provide gentle hydration and follow renal function, nephro consult for ckd Pain management for DJD left hip Resume home medications FEN - Cardiac diet PPX - Eliquis FULL CODE/patient names his daughter (Christine Jacobo) as surrogate decision- maker Dispo - inpatient for above History of Present Illness History of Present Illness 01/22 Patient evaluated examined at bedside up in chair. Said her breathing little bit better and swelling in lower extremities improving. Work with therapy. Recommendations from consultants reviewed. Continue current otherwise. Discussed with bedside RN. 01/21 Patient evaluated at bedside. He was sitting up eating lunch. Intermittently coughing harshly. Continuing IV antibiotics and Solu-Medrol. Daily Lasix. Patient said at home over the past week or so he has been unable to complete most of his tasks due to shortness of breath. Will add on therapy. [employer] recommendations reviewed. Continue current otherwise. Discussed with bedside RN. Vitals/I&O Vitals/I&O: Vital Signs Date Time Temp Pulse Resp B/P (MAP) Pulse Ox O2 Delivery O2 Flow Rate FiO2 01/22/22 20:59 98 Nasal Cannula 3.0 01/22/22 19:00 98.3 78 20 99/47 (64) 98.3 I & O 01/21/22 01/21/22 01/22/22 15:00 23:00 07:00 Intake Total 360 ml 120 ml 110 ml Output Total 450 ml 200 ml 250 ml Balance -90 ml -80 ml -140 ml Physical Exam General: Alert, Oriented X3, Cooperative, No acute distress Heart: Normal S1, Normal S2, Other (AFIB rate controlled with V pacing; 4/6 systolic murmur lopudest to FITO border) Lungs: Other (Decreased breath sounds at the bases.) Abdomen: Soft, No tenderness Extremities: No cyanosis, Other (2-3+ bilateral LE pitting edema) Skin: No breakdown, No significant lesion Labs Labs: Laboratory Tests Test 01/22/22 10:50 Sodium Level 135 mmol/L (136-145) Potassium Level 4.3 mmol/L (3.5-5.1) Chloride Level 99 mmol/L (98-107) Carbon Dioxide Level 25 mmol/L (21-32) Anion Gap 11 (6-14) Blood Urea Nitrogen 59 mg/dL (8-26) Creatinine 2.9 mg/dL (0.7-1.3) Estimated GFR (Cockcroft-Gault) 21.0 Glucose Level 148 mg/dL (70-99) Calcium Level 8.1 mg/dL (8.5-10.1) Assessment and Plan Assessmemt and Plan Problems Medical Problems: (1) Bilateral pneumonia Status: Acute (2) CHF exacerbation Status: Acute (3) Chronic renal failure Status: Acute (4) Pleural effusion Status: Acute Comment Review of Relevant I have reviewed the following items earl (where applicable) has been applied. Medications: Current Medications Medications (Trade) Dose Ordered Sig/Thanh Route PRN Reason Start Time Stop Time Status Last Admin Dose Admin Sodium Chloride 1,000 ml @ 75 mls/hr 1X ONCE IV 01/22/22 12:15 01/23/22 01:34 01/22/22 12:35 Justifications for Admission Other Justification ARI KAUFMAN MD January 22, 2022 21:58
[2022-01-22 23:00] VITALS: BP 94/53
[2022-01-23 03:00] VITALS: BP 98/52
[2022-01-23 06:00] LABS: CALCIUM 8.2 mg/dL (8.5-10.1); CREATININE 3.4 mg/dL (0.7-1.3); GFR 17.5; POTASSIUM 5.2 mmol/L (3.5-5.1)
[2022-01-23 07:00] VITALS: BP 101/54
[2022-01-23] MEDS: IPRATRPIUM/ALBUTEROL 0.5/2.5MG 3 ML NEBU. NEB SCH ×4 (07:18→20:50)
[2022-01-23] MEDS: guaiFENesin DM 600/30MG 1 TAB TAB.ER.12H PO SCH ×2 (07:59→20:32)
[2022-01-23] MEDS: methylPREDNISolone SOD SUCC PF 40 MG/ML VIAL. IV SCH (07:59)
[2022-01-23] MEDS: ATORVASTATIN CALCIUM 40 MG TABLET. PO SCH (07:59)
[2022-01-23] MEDS: APIXABAN 5 MG TABLET. PO SCH ×2 (08:00→20:32)
[2022-01-23] MEDS: METOPROLOL SUCC 24HR ER 50 MG TAB.ER.24H. PO SCH (08:01)
[2022-01-23] MEDS: cefTRIAXone IV Push 1 GM VIAL. IVP SCH (08:02)
[2022-01-23] MEDS: DOXYCYCLINE HYCLATE 100 MG in IV DEXTROSE 5% 100ML 100 ML IV SCH (08:02)
[2022-01-23] MEDS: HYDROcodone/APAP 5/325MG 1 TAB TABLET PO PRN ×3 (08:16→20:32)
--- NOTE | 2022-01-23 09:04 | PDOC ---
DATE OF SERVICE DATE: 01/23/22 TIME: 09:03 SUBJECTIVE ROS Stable, No complaints OBJECTIVE Vital Signs Vital Signs Date Time Temp Pulse Resp B/P (MAP) Pulse Ox O2 Delivery O2 Flow Rate FiO2 01/23/22 08:18 Nasal Cannula 3.0 01/23/22 08:16 98 01/23/22 08:01 69 101/54 01/23/22 07:00 97.7 20 97.7 I & 0 Intake and Output 01/23/22 07:00 Intake Total 683 ml Output Total 425 ml Balance 258 ml Intake Oral 240 ml IV Total 443 ml Output Urine Total 425 ml PHYSICAL EXAM Physical Exam General: NAD HEENT: Atraumatic, OM moist Neck Supple Lungs: bibasilar rales, Non labored Heart: RRR, systolic murmur, midline sternotomy scar Cardiovascular: S1, S2 Abdomen: Normal bowel sounds, Soft, No tenderness Extremities: +1 bilateral leg edema Skin: No Rash Neuro:Grossly normal, moving all 4 extremities Psych/Mental Status: Mental status NL, Mood NL No [place], No CVA or SP tenderness DIAGNOSIS/ASSESSMENT Assessment & Plan ? FILEMON on CKD vs his baseline- C Patient doesnt know his baseline Creatinine . Supportive care, Avoid Nephrotoxins, Diuresis per cardiology . Worsening renal function. Lasix held . Recd some IVF yesterday . Check Renal US Strict I/O (UOP not recorded since admission) , daily standing weight . Gentle IV hydration My need dialysis if worsening or symptomatic. Currently no emergent indication today CKD stage 3 B follows with [facility] nephrology . Reviewed Records from his primary Certified Hearing Instrument Dispenser - Dr Viveros, last seen 12/22 2021 Cr 1.68 Baseline Cr 1.5 - 2.1(11/2020) , CKD at least since 2019 . No mention of Kidney Bx. Rest of the kingsley negative. Suspected 2/2 HTN sive Nephrosclerosis Renal cysts- US in Jul 2021 - Bilateral renal cysts. with the largest measuring 3.4 cm in the right kidney. Microscopic hematuria- Was Referred to urology by Dr Viveros .Patient doesnt recall any intervention . He does have Bilat renal cysts Anemia - Drop in Hgb vs his baseline (? Hemoconc POA), Monitor . 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 PAFIB: COMMENT/RELEVANT DATA Meds Current Medications Medications (Trade) Dose Ordered Sig/Thanh Start Time Stop Time Status Last Admin Dose Admin Acetaminophen (Tylenol) 650 mg PRN Q6HRS PRN 01/20/22 16:15 Acetaminophen/ Hydrocodone Bitart (Lortab 5/325) 2 tab PRN Q4HRS PRN 01/20/22 16:15 01/22/22 22:24 2 TAB Al Hydroxide/Mg Hydroxide (Mylanta Plus Xs) 30 ml PRN Q3HRS PRN 01/20/22 16:15 Albuterol/ Ipratropium (Duoneb) 3 ml RTQID 01/20/22 20:00 01/23/22 07:18 3 ML Amlodipine Besylate (Norvasc) 5 mg DAILY 01/21/22 09:00 01/22/22 09:18 5 MG Apixaban (Eliquis) 2.5 mg BID 01/20/22 21:00 01/23/22 08:00 2.5 MG Atorvastatin Calcium (Lipitor) 80 mg DAILY 01/21/22 09:00 01/23/22 07:59 80 MG Benzonatate (Tessalon Perle) 100 mg TID PRN 01/20/22 16:30 Budesonide (Pulmicort) 0.5 mg RTBID 01/21/22 13:00 01/22/22 20:58 0.5 MG Calcium Carbonate/ Glycine (Tums) 500 mg PRN Q3HRS PRN 01/20/22 16:15 Ceftriaxone Sodium (Rocephin) 1 gm DAILY 01/21/22 09:00 01/23/22 08:02 1 GM Doxycycline Hyclate (Vibra-Tab) 100 mg BID 01/23/22 21:00 Doxycycline Hyclate 100 mg/ Dextrose 100 ml @ 50 mls/hr BID 01/20/22 21:00 01/23/22 12:00 01/23/22 08:02 50 MLS/HR Fentanyl Citrate (Fentanyl 2ml Vial) 50 mcg PRN Q1HR PRN 01/20/22 15:30 01/21/22 15:29 DC Furosemide (Lasix) 40 mg STK-MED ONCE 01/20/22 15:14 01/22/22 09:27 DC Guaifenesin (MUCINEX ER with DM) 1 tab BID 01/20/22 21:00 01/23/22 07:59 1 TAB Guaifenesin/ Codeine Phosphate (Robitussin Ac) 5 ml PRN Q6HRS PRN 01/20/22 16:30 01/20/22 21:33 5 ML Lisinopril (Prinivil) 20 mg DAILY 01/21/22 09:00 01/22/22 12:11 DC 01/22/22 09:17 20 MG Magnesium Hydroxide (Milk Of Magnesia) 2,400 mg PRN Q12HR PRN 01/20/22 16:15 Methylprednisolone Sodium Succinate (SOLU-Medrol 40MG VIAL) 40 mg Q12HR 01/21/22 10:00 01/23/22 07:59 40 MG Metoprolol Succinate (Toprol Xl) 50 mg DAILY 01/21/22 09:00 01/22/22 09:18 50 MG Morphine Sulfate (Morphine Sulfate) 2 mg PRN Q1HR PRN 01/20/22 16:15 01/21/22 03:15 2 MG Non-Formulary Medication (Umeclidinium Brm/Vilanterol Tr (Anoro Ellipta 62.5-25 Mcg Inh)) 1 puff DAILY 01/21/22 09:00 01/20/22 19:34 DC Ondansetron HCl (Zofran) 4 mg PRN Q6HRS PRN 01/20/22 16:15 Oxycodone/ Acetaminophen (Percocet 5/325) 1 tab PRN Q4HRS PRN 01/20/22 16:15 01/21/22 20:52 1 TAB Sodium Chloride 1,000 ml @ 75 mls/hr 1X ONCE 01/22/22 12:15 01/23/22 01:34 DC 01/22/22 12:35 75 MLS/HR Zolpidem Tartrate (Ambien) 5 mg PRN QHS PRN 01/20/22 16:15 01/21/22 21:31 5 MG Lab Laboratory Tests Test 01/22/22 10:50 01/23/22 04:55 Sodium Level 135 mmol/L (136-145) 131 mmol/L (136-145) Potassium Level 4.3 mmol/L (3.5-5.1) 5.2 mmol/L (3.5-5.1) Chloride Level 99 mmol/L (98-107) 97 mmol/L (98-107) Carbon Dioxide Level 25 mmol/L (21-32) 22 mmol/L (21-32) Anion Gap 11 (6-14) 12 (6-14) Blood Urea Nitrogen 59 mg/dL (8-26) 71 mg/dL (8-26) Creatinine 2.9 mg/dL (0.7-1.3) 3.4 mg/dL (0.7-1.3) Estimated GFR (Cockcroft-Gault) 21.0 17.5 Glucose Level 148 mg/dL (70-99) 147 mg/dL (70-99) Calcium Level 8.1 mg/dL (8.5-10.1) 8.2 mg/dL (8.5-10.1) Results All relevant outside records, renal labs, imaging studies, telemetry/EKG's were reviewed. Justicifation of Admission Dx: Justifications for Admission: Justification of Admission Dx: Yes KATIE STAHL MD January 23, 2022 09:04
--- NOTE | 2022-01-23 09:06 | PDOC ---
FRANNY MOE PMO PROJECT MANAGER 01/23/22 0906: CARDIO Progress Notes Date and Time Date of Service 01/23/2022 Time of Evaluation 0900 Subjective Subjective: No Chest Pain, No shortness of breath, No Palpitations Vitals Vitals Vital Signs Date Time Temp Pulse Resp B/P (MAP) Pulse Ox O2 Delivery O2 Flow Rate FiO2 01/23/22 08:18 Nasal Cannula 3.0 01/23/22 08:16 98 01/23/22 08:01 69 101/54 01/23/22 07:00 97.7 20 97.7 Weight Weight [ ] Input and Output Intake and Output Intake and Output 01/23/22 07:00 Intake Total 683 ml Output Total 425 ml Balance 258 ml Intake Oral 240 ml IV Total 443 ml Output Urine Total 425 ml Laboratory Labs Laboratory Tests Test 01/22/22 10:50 01/23/22 04:55 Sodium Level 135 mmol/L (136-145) 131 mmol/L (136-145) Potassium Level 4.3 mmol/L (3.5-5.1) 5.2 mmol/L (3.5-5.1) Chloride Level 99 mmol/L (98-107) 97 mmol/L (98-107) Carbon Dioxide Level 25 mmol/L (21-32) 22 mmol/L (21-32) Anion Gap 11 (6-14) 12 (6-14) Blood Urea Nitrogen 59 mg/dL (8-26) 71 mg/dL (8-26) Creatinine 2.9 mg/dL (0.7-1.3) 3.4 mg/dL (0.7-1.3) Estimated GFR (Cockcroft-Gault) 21.0 17.5 Glucose Level 148 mg/dL (70-99) 147 mg/dL (70-99) Calcium Level 8.1 mg/dL (8.5-10.1) 8.2 mg/dL (8.5-10.1) Microbiology Micro Microbiology 01/20/22 Blood Culture - Preliminary, Resulted NO GROWTH AFTER 2 DAYS Physical Exam HEENT: Neck Supple W Full Motion Chest: Symmetric LUNGS: Clear to Auscultation Heart: irregularly irregular (AFIB rate controlled with intermittent V pacing) Abdomen: Soft N/T Extremities: Other (2+ bilateral LE pitting edema) Neurology: alert, oriented, follow commands Assessment Assessment 1. Acute on chronic respiratory failure with AECOPD, CHF and possible PNA 2. Acute on chronic diastolic CHF: EF and WM nml per TTE. better compensated 3. Valvular insufficiency: Mild to moderate and MR, Mild TR: 4. CAD; past CABG and PCI, clinically stable 5. 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 [employer]. Recent interrogation 01/08/2022 revealed no significant arrhythmias, nml device with 11 yrs battery life. Chronic RBBB 6. PAFIB: presently V paced with AFIB rate controlled. on home eliquis 7. HTN: controlled 9. HLP 10. FILEMON on CKD: baseline per review this yr was 1.7. Cr worse at 3.4. nephrology following Recommendations 1. Antibiotic therapy per PCP 2. IVF received overnight. Stop lasix and lisinopril. Renal workup ongoing. Avoid nephrotoxins. May need HD. 3. Secondary prevention measures 4. Continue rate control. Low dose eliquis for stroke prevention 5. Supportive care. Avoid nephrotoxins 6. Follow up with Dr. Connelly with [facility] cardiology as an outpt Justicifation of Admission Dx: Justifications for Admission: Justification of Admission Dx: Yes BLAS BERGERON MD 01/23/22 1624: CARDIO Progress Notes Assessment Assessment Patient seen and examined He is looking mildly better today. Followed by renal and pulmonary. I agree with our nurse practitioners assessment and plan. Acute on chronic respiratory failure with AECOPD, CHF and possible PNA. Improving on present treatment. Acute on chronic diastolic CHF: EF and WM nml per TTE. better compensated. Follows at . 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 [employer]. Recent interrogation 01/08/2022 revealed no significant arrhythmias, nml device with 11 yrs battery life. Chronic RBBB PAFIB: presently V paced with AFIB rate controlled. on home eliquis HTN: controlled HLP FILEMON on CKD: nephrology following FRANNY MOE APRN January 23, 2022 09:06 BLAS BERGERON MD January 23, 2022 16:24
--- NOTE | 2022-01-23 10:34 | PDOC ---
PULMONARY PROGRESS NOTES DATE: 01/23/22 TIME: 10:32 Subjective Feels better. Still has dyspnea with exertion. Vitals Vital Signs Date Time Temp Pulse Resp B/P (MAP) Pulse Ox O2 Delivery O2 Flow Rate FiO2 01/23/22 10:05 98 Nasal Cannula 3.0 01/23/22 08:01 69 101/54 01/23/22 07:00 97.7 20 97.7 ROS: No Chest Pain, No Increase Cough General: Alert, No acute distress Lungs: Other (Decreased breath sounds at the bases.) Cardiovascular: S1 Abdomen: Soft Neuro Exam: Alert Extremities: Other (2+ pitting edema.) Labs Laboratory Tests Test 01/22/22 10:50 01/23/22 04:55 Sodium Level 135 mmol/L (136-145) 131 mmol/L (136-145) Potassium Level 4.3 mmol/L (3.5-5.1) 5.2 mmol/L (3.5-5.1) Chloride Level 99 mmol/L (98-107) 97 mmol/L (98-107) Carbon Dioxide Level 25 mmol/L (21-32) 22 mmol/L (21-32) Anion Gap 11 (6-14) 12 (6-14) Blood Urea Nitrogen 59 mg/dL (8-26) 71 mg/dL (8-26) Creatinine 2.9 mg/dL (0.7-1.3) 3.4 mg/dL (0.7-1.3) Estimated GFR (Cockcroft-Gault) 21.0 17.5 Glucose Level 148 mg/dL (70-99) 147 mg/dL (70-99) Calcium Level 8.1 mg/dL (8.5-10.1) 8.2 mg/dL (8.5-10.1) Laboratory Tests Test 01/22/22 10:50 01/23/22 04:55 Sodium Level 135 mmol/L (136-145) 131 mmol/L (136-145) Potassium Level 4.3 mmol/L (3.5-5.1) 5.2 mmol/L (3.5-5.1) Chloride Level 99 mmol/L (98-107) 97 mmol/L (98-107) Carbon Dioxide Level 25 mmol/L (21-32) 22 mmol/L (21-32) Anion Gap 11 (6-14) 12 (6-14) Blood Urea Nitrogen 59 mg/dL (8-26) 71 mg/dL (8-26) Creatinine 2.9 mg/dL (0.7-1.3) 3.4 mg/dL (0.7-1.3) Estimated GFR (Cockcroft-Gault) 21.0 17.5 Glucose Level 148 mg/dL (70-99) 147 mg/dL (70-99) Calcium Level 8.1 mg/dL (8.5-10.1) 8.2 mg/dL (8.5-10.1) Medications Active Scripts Medications Dose Route/Sig Max Daily Dose Days Date Category Albuterol Sulfate Neb Soln (Albuterol Sulfate) 2.5 Mg/3 Ml Vial.neb 1 Vial NEB QID PRN 01/20/22 Reported Metoprolol Succinate ( Xl ) (Metoprolol Succinate) 25 Mg Tab.er.24h 2 Tab PO DAILY 01/20/22 Reported Anoro Ellipta 62.5-25 Mcg Inh (Umeclidinium Brm/Vilanterol Tr) 1 Each Disk.w.dev 1 Puff INH DAILY 01/20/22 Reported Eliquis (Apixaban) 5 Mg Tablet 1 Tab PO BID 01/20/22 Reported Rosuvastatin Calcium 40 Mg Tablet 1 Tab PO DAILY 01/20/22 Reported Amlodipine Besylate 5 Mg Tablet 1 Tab PO DAILY 01/20/22 Reported Lisinopril 20 Mg Tablet 1 Tab PO DAILY 01/20/22 Reported Potassium Chloride 20 Meq Tablet.er 1 Tab PO DAILY 01/20/22 Reported Furosemide 40 Mg Tablet 1 Tab PO DAILY 01/20/22 Reported No Known Medications Prior To Admisstion (Info) Each 1 Each 05/13/18 Reported Impression . 1. Acute on chronic hypoxemic respiratory failure, multifactorial. 2. Acute exacerbation of chronic obstructive pulmonary disease. 3. Abnormal x-ray, possible pneumonia. 4. Acute on chronic congestive heart failure. 5. Chronic kidney disease. 6. Coronary artery disease with previous coronary artery bypass grafting. 7. Chronic atrial fibrillation. 8. History of aortic stenosis. Plan . 1. Patient now on oral prednisone and oral antibiotic. 2. diuresis. 3. Nebulized treatments. 4. Oxygen supplementation. 5. Monitor BUN and creatinine. 6. Patient's older CT chest from 2018 was reviewed and compared with the recent images. Patient has chronic pleural thickening with associated atelectasis. No intervention needed at present. 7. Patient is on home oxygen at 2.5 L. Currently at 3 L. Close to baseline. Patient can increase oxygen to 3.5 L with activity. 8. Discharge planning per PCP. Okay pulmonary standpoint KACEY SAMPSON MD January 23, 2022 10:34
[2022-01-23] MEDS: BUDESONIDE 0.5 MG/2 ML NEBU. NEB SCH ×2 (10:54→20:53)
[2022-01-23 11:00] VITALS: BP 91/51
--- NOTE | 2022-01-23 12:44 | RAD ---
EXAM: US RENAL BILAT 01/23/2022 9:07 AM INDICATION: Bladder outlet obstruction. COMPARISON: Renal ultrasound 07/31/2021 TECHNIQUE: Grayscale and color Doppler ultrasound images of the kidneys and bladder FINDINGS: The exam is limited by bowel gas, which partially obscures both kidneys, greater on the left. The right kidney measures 10.2 x 4.9 x 5.0 cm. The left kidney measures 10.8 x 5.2 x 5.0 cm. Renal echogenicity and cortical thickness is grossly normal. No obvious hydronephrosis. 2 anechoic cystic lesions in the right kidney measuring 3.7 cm and 1.6 cm are consistent with cysts. The urinary bladder the urinary bladder is decompressed, limiting evaluation.. IMPRESSION: 1. Limited evaluation of the kidneys due to shadowing bowel gas. No obvious hydronephrosis. 2. There are 2 simple cysts in the right kidney measuring up to 3.7 cm. 3. The bladder is decompressed, limiting evaluation. Electronically signed by: Magnolia Kumar MD (01/23/2022 12:42 PM) [id number]
[2022-01-23] MEDS: IV NORMAL SALINE 1000ML BAG 1,000 ML IV SCH (13:28)
[2022-01-23] MEDS ORDERED: LIDOCAINE WITH 8.4% SOD BICARB 3 ML DISP.SYRIN. ONE (14:02)
[2022-01-23] MEDS ORDERED: LIDOCAINE WITH 8.4% SOD BICARB 3 ML DISP.SYRIN. INJ ONE (14:15)
[2022-01-23 15:00] VITALS: BP 96/51
--- NOTE | 2022-01-23 16:19 | NUR ---
SS following up with discharge planning. SS reviewed pt chart and discussed with pt RN. Pt is currently requiring oxygen at three liters nasal canula. COVID19 negative. Pt has home oxygen. PT/OT recommended intermediate unit. Pt currently declining intermediate unit. Pt reported that he already goes to [facility] Rehabilitation at [facility] for outpatient services. SS will continue to follow for discharge planning.
[2022-01-23 19:00] VITALS: BP 90/53
[2022-01-23] MEDS ORDERED: DOXYCYCLINE HYCLATE 100 MG TABLET PO SCH (21:00)
[2022-01-23 23:00] VITALS: BP 96/51
[2022-01-24 03:39] VITALS: BP 95/37
[2022-01-24 07:00] VITALS: BP 125/59
[2022-01-24] MEDS: IPRATRPIUM/ALBUTEROL 0.5/2.5MG 3 ML NEBU. NEB SCH ×4 (07:59→19:51)
[2022-01-24] MEDS: BUDESONIDE 0.5 MG/2 ML NEBU. NEB SCH ×2 (08:00→19:51)
[2022-01-24 08:02] LABS: ALBUMIN 2.8 g/dL (3.4-5.0); CALCIUM 7.7 mg/dL (8.5-10.1); CREATININE 3.7 mg/dL (0.7-1.3); GFR 15.8; PHOSPHORUS 5.1 mg/dL (2.6-4.7); POTASSIUM 4.5 mmol/L (3.5-5.1)
[2022-01-24] MEDS: predniSONE 20 MG TABLET PO SCH (09:17)
[2022-01-24] MEDS: APIXABAN 5 MG TABLET. PO SCH ×2 (09:17→21:47)
[2022-01-24] MEDS: ATORVASTATIN CALCIUM 40 MG TABLET. PO SCH (09:17)
[2022-01-24] MEDS: CEFDINIR 300 MG CAPSULE PO SCH ×2 (09:17→21:47)
[2022-01-24] MEDS: METOPROLOL SUCC 24HR ER 50 MG TAB.ER.24H. PO SCH (09:17)
[2022-01-24] MEDS: guaiFENesin DM 600/30MG 1 TAB TAB.ER.12H PO SCH ×2 (09:19→21:53)
[2022-01-24] MEDS ORDERED: IV NORMAL SALINE 1000ML BAG 1,000 ML IV PRN ×2 (11:15)
[2022-01-24] MEDS ORDERED: DIALYSIS PATIENT. MC PRN ×2 (11:15)
--- NOTE | 2022-01-24 12:12 | PDOC ---
Dialysis Progress Note Date of Service: DATE: 01/24/22 TIME: 12:10 Dialysis Note Dialysis Note Seen on Hemodialysis, tolerating treatment Well so far Vitals on Hemodialysis: Blood pressures 101/58 heart rate 69 afebrile General Appearance: Awake: Alert Oriented Neck: No JVD or JVP Chest: CTA Jae Heart: S1 S2 Abdomen - Soft NTND Extremities - No Edema ARF plus CKD 4: Dialysis as below F 180 NR 2.5 Hrs 3 K 2.5 Ca 140 Na 35 HC03 Qb 250 Qd 500 Heparin 0 Units Uf 0 Kgs or to dry weight as tolerated May give 25-50 gms of 25% Albumin if needed to maintain Hemodynamic stability Treatment plan reviewed and discussed with meat service team member Vitals Vital Signs Vital Signs Date Time Temp Pulse Resp B/P (MAP) Pulse Ox O2 Delivery O2 Flow Rate FiO2 01/24/22 09:17 73 125/59 01/24/22 08:00 Nasal Cannula 3.0 01/24/22 07:59 96 01/24/22 07:00 98.2 20 98.2 Labs Last Labs Laboratory Tests Test 01/23/22 04:55 01/24/22 06:35 Sodium Level 131 mmol/L (136-145) 132 mmol/L (136-145) Potassium Level 5.2 mmol/L (3.5-5.1) 4.5 mmol/L (3.5-5.1) Chloride Level 97 mmol/L (98-107) 99 mmol/L (98-107) Carbon Dioxide Level 22 mmol/L (21-32) 25 mmol/L (21-32) Anion Gap 12 (6-14) 8 (6-14) Blood Urea Nitrogen 71 mg/dL (8-26) 81 mg/dL (8-26) Creatinine 3.4 mg/dL (0.7-1.3) 3.7 mg/dL (0.7-1.3) Estimated GFR (Cockcroft-Gault) 17.5 15.8 Glucose Level 147 mg/dL (70-99) 119 mg/dL (70-99) Calcium Level 8.2 mg/dL (8.5-10.1) 7.7 mg/dL (8.5-10.1) Phosphorus Level 5.1 mg/dL (2.6-4.7) Albumin 2.8 g/dL (3.4-5.0) Laboratory Tests Test 01/24/22 06:35 Sodium Level 132 mmol/L (136-145) Potassium Level 4.5 mmol/L (3.5-5.1) Chloride Level 99 mmol/L (98-107) Carbon Dioxide Level 25 mmol/L (21-32) Anion Gap 8 (6-14) Blood Urea Nitrogen 81 mg/dL (8-26) Creatinine 3.7 mg/dL (0.7-1.3) Estimated GFR (Cockcroft-Gault) 15.8 Glucose Level 119 mg/dL (70-99) Calcium Level 7.7 mg/dL (8.5-10.1) Phosphorus Level 5.1 mg/dL (2.6-4.7) Albumin 2.8 g/dL (3.4-5.0) Assessment Assessment Problems Medical Problems: (1) Bilateral pneumonia Status: Acute (2) CHF exacerbation Status: Acute (3) Chronic renal failure Status: Acute (4) Pleural effusion Status: Acute Plan Plan of Care Problems Medical Problems: (1) Bilateral pneumonia Status: Acute (2) CHF exacerbation Status: Acute (3) Chronic renal failure Status: Acute (4) Pleural effusion Status: Acute ESTEBAN VILLANUEVA MD January 24, 2022 12:12
--- NOTE | 2022-01-24 12:59 | PDOC ---
PROGRESS NOTES Date of Service DATE: 01/24/22 TIME: 12:57 Subjective Subjective Patient seen and examined Objective Objective Vital Signs Date Time Temp Pulse Resp B/P (MAP) Pulse Ox O2 Delivery O2 Flow Rate FiO2 01/24/22 09:17 73 125/59 01/24/22 08:00 Nasal Cannula 3.0 01/24/22 07:59 96 01/24/22 07:00 98.2 20 98.2 Intake and Output 01/24/22 07:00 Intake Total 1200 ml Output Total 950 ml Balance 250 ml Intake Oral 1200 ml Output Urine Total 950 ml Physical Exam Abdomen: Normal bowel sounds Heart: Regular rate General: mild distress Lungs: Other (Slightly decreased breath sounds) Assessment Assessment Problems Medical Problems: (1) Bilateral pneumonia Status: Acute (2) CHF exacerbation Status: Acute (3) Chronic renal failure Status: Acute (4) Pleural effusion Status: Acute 1. Acute on chronic respiratory failure with AECOPD, CHF and possible PNA. Imp roving on present treatment. 2. Acute on chronic diastolic CHF: EF and WM nml per TTE. better compensated 3. Valvular insufficiency: Mild to moderate and MR, Mild TR: 4. CAD; past CABG and PCI, clinically stable 5. 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 [employer]ro[employer]. Recent interrogation 01/08/2022 revealed no significant arrhythmias, nml device with 11 yrs battery life. Chronic RBBB 6. PAFIB: presently V paced with AFIB rate controlled. on home eliquis 7. HTN: controlled 9. HLP 10. FILEMON on CKD: Creatinine today of 3.7. Followed and treated by the renal service. Comment Review of Relevant I have reviewed the following items earl (where applicable) has been applied. Labs Laboratory Tests Test 01/23/22 04:55 01/24/22 06:35 Sodium Level 131 mmol/L (136-145) 132 mmol/L (136-145) Potassium Level 5.2 mmol/L (3.5-5.1) 4.5 mmol/L (3.5-5.1) Chloride Level 97 mmol/L (98-107) 99 mmol/L (98-107) Carbon Dioxide Level 22 mmol/L (21-32) 25 mmol/L (21-32) Anion Gap 12 (6-14) 8 (6-14) Blood Urea Nitrogen 71 mg/dL (8-26) 81 mg/dL (8-26) Creatinine 3.4 mg/dL (0.7-1.3) 3.7 mg/dL (0.7-1.3) Estimated GFR (Cockcroft-Gault) 17.5 15.8 Glucose Level 147 mg/dL (70-99) 119 mg/dL (70-99) Calcium Level 8.2 mg/dL (8.5-10.1) 7.7 mg/dL (8.5-10.1) Phosphorus Level 5.1 mg/dL (2.6-4.7) Albumin 2.8 g/dL (3.4-5.0) Laboratory Tests Test 01/24/22 06:35 Sodium Level 132 mmol/L (136-145) Potassium Level 4.5 mmol/L (3.5-5.1) Chloride Level 99 mmol/L (98-107) Carbon Dioxide Level 25 mmol/L (21-32) Anion Gap 8 (6-14) Blood Urea Nitrogen 81 mg/dL (8-26) Creatinine 3.7 mg/dL (0.7-1.3) Estimated GFR (Cockcroft-Gault) 15.8 Glucose Level 119 mg/dL (70-99) Calcium Level 7.7 mg/dL (8.5-10.1) Phosphorus Level 5.1 mg/dL (2.6-4.7) Albumin 2.8 g/dL (3.4-5.0) Microbiology 01/20/22 Blood Culture - Preliminary, Resulted NO GROWTH AFTER 3 DAYS Medications Current Medications Morphine Sulfate (Morphine Sulfate) 2 mg PRN Q15MIN PRN IV/SQ PAIN GREATER THAN 3/10 Last administered on 01/20/22at 15:13; Start 01/20/22 at 13:45; Stop 01/21/22 at 12:23; Status DC Furosemide (Lasix) 40 mg DAILY IVP Last administered on 01/20/22at 15:24; Start 01/21/22 at 09:00; Stop 01/21/22 at 03:48; Status DC Ceftriaxone Sodium (Rocephin) 1 gm 1X ONCE IVP Last administered on 01/20/22at 15:23; Start 01/20/22 at 15:15; Stop 01/20/22 at 15:16; Status DC Ondansetron HCl (Zofran) 4 mg PRN Q8HRS PRN IVP NAUSEA/VOMITING; Start 01/20/22 at 15:30; Stop 01/21/22 at 12:23; Status DC Fentanyl Citrate (Fentanyl 2ml Vial) 50 mcg PRN Q1HR PRN IVP PAIN; Start 01/20/22 at 15:30; Stop 01/21/22 at 15:29; Status DC Acetaminophen (Tylenol) 650 mg PRN Q4HRS PRN PO FEVER > 100.3'F; Start 01/20/22 at 15:30; Stop 01/21/22 at 12:23; Status DC Methylprednisolone Sodium Succinate (SOLU-Medrol 40MG VIAL) 40 mg PRN Q12HRS IV ; Start 01/20/22 at 16:15; Stop 01/21/22 at 09:59; Status DC Ceftriaxone Sodium (Rocephin) 1 gm DAILY IVP Last administered on 01/23/22at 08:02; Start 01/21/22 at 09:00; Stop 01/23/22 at 10:05; Status DC Doxycycline Hyclate 100 mg/ Dextrose 100 ml @ 50 mls/hr BID IV Last administered on 01/23/22at 08:02; Start 01/20/22 at 21:00; Stop 01/23/22 at 10:05; Status DC Albuterol/ Ipratropium (Duoneb) 3 ml RTQID NEB Last administered on 01/24/22at 07:59; Start 01/20/22 at 20:00 Ondansetron HCl (Zofran) 4 mg PRN Q6HRS PRN IVP NAUSEA/VOMITING; Start 01/20/22 at 16:15 Al Hydroxide/Mg Hydroxide (Mylanta Plus Xs) 30 ml PRN Q3HRS PRN PO HEARTBURN / GAS; Start 01/20/22 at 16:15 Calcium Carbonate/ Glycine (Tums) 500 mg PRN Q3HRS PRN PO UPSET STOMACH; Start 01/20/22 at 16:15 Zolpidem Tartrate (Ambien) 5 mg PRN QHS PRN PO INSOMNIA, MAY REPEAT IN 1HR Last administered on 01/21/22at 21:31; Start 01/20/22 at 16:15 Morphine Sulfate (Morphine Sulfate) 2 mg PRN Q1HR PRN IV PAIN Last administered on 01/21/22 03:15; Start 01/20/22 at 16:15 Acetaminophen/ Hydrocodone Bitart (Lortab 5/325) 1 tab PRN Q4HRS PRN PO MILD PAIN 1-3 Last administered on 01/23/22at 20:32; Start 01/20/22 at 16:15 Acetaminophen/ Hydrocodone Bitart (Lortab 5/325) 2 tab PRN Q4HRS PRN PO MODERATE PAIN, SEVERE PAIN Last administered on 01/22/22 22:24; Start 01/20/22 at 16:15 Oxycodone/ Acetaminophen (Percocet 5/325) 1 tab PRN Q4HRS PRN PO MILD PAIN, 2ND CHOICE Last administered on 01/21/22 20:52; Start 01/20/22 at 16:15 Acetaminophen (Tylenol) 650 mg PRN Q6HRS PRN PO Headaches, Temp > 101.5F; Start 01/20/22 at 16:15 Magnesium Hydroxide (Milk Of Magnesia) 2,400 mg PRN Q12HR PRN PO CONSTIPATION; Start 01/20/22 at 16:15 Guaifenesin/ Codeine Phosphate (Robitussin Ac) 5 ml PRN Q6HRS PRN PO COUGH Last administered on 01/20/22 21:33; Start 01/20/22 at 16:30 Benzonatate (Tessalon Perle) 100 mg TID PRN PO COUGH; Start 01/20/22 at 16:30 Guaifenesin (MUCINEX ER with DM) 1 tab BID PO Last administered on 01/24/22at 09:19; Start 01/20/22 at 21:00 Amlodipine Besylate (Norvasc) 5 mg DAILY PO Last administered on 01/24/22 09:17; Start 01/21/22 at 09:00 Apixaban (Eliquis) 2.5 mg BID PO Last administered on 01/24/22 09:17; Start 01/20/22 at 21:00 Lisinopril (Prinivil) 20 mg DAILY PO Last administered on 01/22/22 09:17; Start 01/21/22 at 09:00; Stop 01/22/22 at 12:11; Status DC Metoprolol Succinate (Toprol Xl) 50 mg DAILY PO Last administered on 01/24/22at 09:17; Start 01/21/22 at 09:00 Atorvastatin Calcium (Lipitor) 80 mg DAILY PO Last administered on 01/24/22at 09:17; Start 01/21/22 at 09:00 Non-Formulary Medication (Umeclidinium Brm/Vilanterol Tr (Anoro Ellipta 62.5-25 Mcg Inh)) 1 puff DAILY INH ; Start 01/21/22 at 09:00; Stop 01/20/22 at 19:34; Status DC Furosemide (Lasix) 20 mg DAILY IVP Last administered on 01/22/22at 09:16; Start 01/21/22 at 09:00; Stop 01/22/22 at 12:11; Status DC Methylprednisolone Sodium Succinate (SOLU-Medrol 40MG VIAL) 40 mg Q12HR IV Last administered on 01/23/22at 07:59; Start 01/21/22 at 10:00; Stop 01/23/22 at 10:05; Status DC Budesonide (Pulmicort) 0.5 mg RTBID NEB Last administered on 01/24/22at 08:00; Start 01/21/22 at 13:00 Furosemide (Lasix) 40 mg STK-MED ONCE .ROUTE ; Start 01/20/22 at 15:14; Stop 01/22/22 at 09:27; Status DC Sodium Chloride 1,000 ml @ 75 mls/hr 1X ONCE IV Last administered on 01/22/22at 12:35; Start 01/22/22 at 12:15; Stop 01/23/22 at 01:34; Status DC Doxycycline Hyclate (Vibra-Tab) 100 mg BID PO ; Start 01/23/22 at 21:00; Stop 01/23/22 at 10:05; Status DC Cefdinir (Omnicef) 300 mg BID PO Last administered on 01/24/22at 09:17; Start 01/24/22 at 09:00 Prednisone (Prednisone) 40 mg DAILY PO Last administered on 01/24/22at 09:17; Start 01/24/22 at 09:00 Sodium Chloride 1,000 ml @ 60 mls/hr [id number] IV Last administered on 01/23/22at 13:28; Start 01/23/22 at 13:30 Lidocaine HCl (Buffered Lidocaine 1%) 6 ml 1X ONCE INJ Last administered on 01/23/22at 14:30; Start 01/23/22 at 14:15; Stop 01/23/22 at 14:16; Status DC Sodium Chloride 1,000 ml @ 1,000 mls/hr Q1H PRN IV hypotension; Start 01/24/22 at 11:15; Stop 01/24/22 at 17:14 Sodium Chloride 1,000 ml @ 400 mls/hr Q2H30M PRN IV PATENCY; Start 01/24/22 at 11:15; Stop 01/24/22 at 23:14 Info (PHARMACY MONITORING -- do not chart) 1 each PRN DAILY PRN MC SEE C OMMENTS; Start 01/24/22 at 11:15 Info (PHARMACY MONITORING -- do not chart) 1 each PRN DAILY PRN MC SEE COMMENTS; Start 01/24/22 at 11:15; Status UNV Active Scripts Active Reported Albuterol Sulfate Neb Soln (Albuterol Sulfate) 2.5 Mg/3 Ml Vial.neb 1 Vial NEB QID PRN Metoprolol Succinate ( Xl ) (Metoprolol Succinate) 25 Mg Tab.er.24h 2 Tab PO DAILY Anoro Ellipta 62.5-25 Mcg Inh (Umeclidinium Brm/Vilanterol Tr) 1 Each Disk.w.dev 1 Puff INH DAILY Eliquis (Apixaban) 5 Mg Tablet 1 Tab PO BID Rosuvastatin Calcium 40 Mg Tablet 1 Tab PO DAILY Amlodipine Besylate 5 Mg Tablet 1 Tab PO DAILY Lisinopril 20 Mg Tablet 1 Tab PO DAILY Potassium Chloride 20 Meq Tablet.er 1 Tab PO DAILY Furosemide 40 Mg Tablet 1 Tab PO DAILY No Known Medications Prior To Admisstion (Info) Each 1 Each Vitals/I & O Vital Sign - Last 24 Hours 01/23/22 01/23/22 01/23/22 01/23/22 13:33 15:00 15:35 15:58 Pulse 70 Resp 18 B/P (MAP) 96/51 (66) Pulse Ox 98 96 96 O2 Delivery Nasal Cannula Nasal Cannula Nasal Cannula Nasal Cannula O2 Flow Rate 3.0 3.0 3.0 3.0 01/23/22 01/23/22 01/23/22 01/23/22 19:00 20:00 20:32 20:54 Temp 97.8 97.8 Pulse 68 Resp 20 18 B/P (MAP) 90/53 (65) Pulse Ox 96 96 97 O2 Delivery Nasal Cannula Nasal Cannula Nasal Cannula Nasal Cannula O2 Flow Rate 3.0 3.0 3.0 01/23/22 01/23/22 01/23/22 01/24/22 20:55 21:02 23:00 03:39 Temp 97.8 97.7 97.8 97.7 Pulse 77 74 Resp 18 18 18 B/P (MAP) 96/51 (66) 95/37 (56) Pulse Ox 100 98 98 98 O2 Delivery Aerosol Mask Nasal Cannula Nasal Cannula Nasal Cannula O2 Flow Rate 10.0 3.0 3.0 3.0 01/24/22 01/24/22 01/24/22 01/24/22 07:00 07:59 08:00 09:17 Temp 98.2 98.2 Pulse 73 73 Resp 20 B/P (MAP) 125/59 (81) 125/59 Pulse Ox 96 96 O2 Delivery Nasal Cannula Nasal Cannula Nasal Cannula O2 Flow Rate 3.0 3.0 3.0 01/24/22 09:17 Pulse 73 B/P (MAP) 125/59 Intake and Output 01/23/22 01/23/22 01/24/22 15:00 23:00 07:00 Intake Total 480 ml 600 ml 120 ml Output Total 800 ml 150 ml Balance 480 ml -200 ml -30 ml Justifications for Admission Other Justification BLAS BERGERON MD January 24, 2022 12:59
--- NOTE | 2022-01-24 13:54 | PDOC ---
[facility] PROGRESS NOTE Date of Service DOS: DATE: 01/24/22 TIME: 13:52 Chief Complaint Chief Complaint Community-acquired pneumonia, possible gram-negative or possible gram-positive organism Acute on chronic respiratory failure with hypoxia Acute COPD exacerbation Acute CHF exacerbation CKD 3b Elevated BNP and likely CHF exacerbation Degenerative joint disease of left hip Plan: Patient received Rocephin and Lasix in the ED We will continue treatment with Rocephin IV and doxycycline IV Solu-Medrol every 12 house. Scheduled DuoNeb and consultation to pulmonology ECHO, cards consult Daily lasix Will provide gentle hydration and follow renal function, nephro consult for ckd Pain management for DJD left hip Resume home medications FEN - Cardiac diet PPX - Eliquis FULL CODE/patient names his daughter (Christine Jacobo) as surrogate decision- maker Dispo - inpatient for above History of Present Illness History of Present Illness 01/23: Patient seen in dialysis. He is breathing comfortably on room air. His leukocytosis resolved, procalcitonin <0.10; no oral cefdinir. He has been initiated on HD. Discussed with patient, hoping this is not a permanent fixture in his kidney function will improve. 01/22 Patient evaluated examined at bedside up in chair. Said her breathing little bit better and swelling in lower extremities improving. Work with therapy. Recommendations from consultants reviewed. Continue current otherwise. Discussed with bedside RN. 01/21 Patient evaluated at bedside. He was sitting up eating lunch. Intermittently coughing harshly. Continuing IV antibiotics and Solu-Medrol. Daily Lasix. Patient said at home over the past week or so he has been unable to complete most of his tasks due to shortness of breath. Will add on therapy. Foam Caster recommendations reviewed. Continue current otherwise. Discussed with bedside RN. Vitals/I&O Vitals/I&O: Vital Signs Date Time Temp Pulse Resp B/P (MAP) Pulse Ox O2 Delivery O2 Flow Rate FiO2 01/24/22 09:17 73 125/59 01/24/22 08:00 Nasal Cannula 3.0 01/24/22 07:59 96 01/24/22 07:00 98.2 20 98.2 I & O 01/23/22 01/23/22 01/24/22 15:00 23:00 07:00 Intake Total 480 ml 600 ml 120 ml Output Total 800 ml 150 ml Balance 480 ml -200 ml -30 ml Physical Exam General: Alert, Oriented X3, Cooperative, No acute distress Heart: Regular rate Lungs: Other (Decreased breath sounds at the bases.) Abdomen: Normal bowel sounds Extremities: No cyanosis, Other (2-3+ bilateral LE pitting edema) Skin: No breakdown, No significant lesion Labs Labs: Laboratory Tests Test 01/24/22 06:35 Sodium Level 132 mmol/L (136-145) Potassium Level 4.5 mmol/L (3.5-5.1) Chloride Level 99 mmol/L (98-107) Carbon Dioxide Level 25 mmol/L (21-32) Anion Gap 8 (6-14) Blood Urea Nitrogen 81 mg/dL (8-26) Creatinine 3.7 mg/dL (0.7-1.3) Estimated GFR (Cockcroft-Gault) 15.8 Glucose Level 119 mg/dL (70-99) Calcium Level 7.7 mg/dL (8.5-10.1) Phosphorus Level 5.1 mg/dL (2.6-4.7) Albumin 2.8 g/dL (3.4-5.0) Assessment and Plan Assessmemt and Plan Problems Medical Problems: (1) Bilateral pneumonia Status: Acute (2) CHF exacerbation Status: Acute (3) Chronic renal failure Status: Acute (4) Pleural effusion Status: Acute Comment Review of Relevant I have reviewed the following items earl (where applicable) has been applied. Medications: Current Medications Medications (Trade) Dose Ordered Sig/Thanh Route PRN Reason Start Time Stop Time Status Last Admin Dose Admin Cefdinir (Omnicef) 300 mg BID PO 01/24/22 09:00 01/24/22 09:17 Prednisone (Prednisone) 40 mg DAILY PO 01/24/22 09:00 01/24/22 09:17 Lidocaine HCl (Buffered Lidocaine 1%) 6 ml 1X ONCE INJ 01/23/22 14:15 01/23/22 14:16 DC 01/23/22 14:30 Justifications for Admission Other Justification TANYA PITTS MD January 24, 2022 13:54
[2022-01-24] MEDS: guaiFENesin/CODEINE 100mg/10mg 5 ML LIQUID PO PRN ×3 (14:32→21:48)
[2022-01-24] MEDS: HYDROcodone/APAP 5/325MG 1 TAB TABLET PO PRN (14:32)
[2022-01-24] MEDS: ANTI-COAG MONITOR BY PHARMACY. MC PRN (14:48)
[2022-01-24 15:00] VITALS: BP 118/62
[2022-01-24] MEDS: IV NORMAL SALINE 1000ML BAG 1,000 ML IV SCH ×2 (17:00→22:50)
--- NOTE | 2022-01-24 19:11 | PDOC ---
[facility] PROGRESS NOTE Date of Service DOS: Late entry for January 23 Chief Complaint Chief Complaint Community-acquired pneumonia, possible gram-negative or possible gram-positive organism Acute on chronic respiratory failure with hypoxia Acute COPD exacerbation Acute CHF exacerbation CKD 3b Elevated BNP and likely CHF exacerbation Degenerative joint disease of left hip Plan: Patient received Rocephin and Lasix in the ED We will continue treatment with Rocephin IV and doxycycline IV Solu-Medrol every 12 house. Scheduled DuoNeb and consultation to pulmonology ECHO, cards consult Daily lasix Will provide gentle hydration and follow renal function, nephro consult for ckd Pain management for DJD left hip Resume home medications FEN - Cardiac diet PPX - Eliquis FULL CODE/patient names his daughter (Christine Jacobo) as surrogate decision- maker Dispo - inpatient for above History of Present Illness History of Present Illness 01/24: Patient seen in dialysis. He is breathing comfortably on room air. His leukocytosis resolved, procalcitonin <0.10; no oral cefdinir. He has been initiated on HD. Discussed with patient, hoping this is not a permanent fixture in his kidney function will improve. 01/23 Evaluated examined at bedside. Informed about labs worsening. Renal ultrasound pending. Consult recommendations reviewed. In terms of breathing he says it is improving. He may need dialysis if kidney function continues to worsen 01/22 Patient evaluated examined at bedside up in chair. Said her breathing little bit better and swelling in lower extremities improving. Work with therapy. Recommendations from consultants reviewed. Continue current otherwise. Disc ussed with bedside RN. 01/21 Patient evaluated at bedside. He was sitting up eating lunch. Intermittently coughing harshly. Continuing IV antibiotics and Solu-Medrol. Daily Lasix. Patient said at home over the past week or so he has been unable to complete most of his tasks due to shortness of breath. Will add on therapy. Customer Engineering Specialist recommendations reviewed. Continue current otherwise. Discussed with bedside RN. Vitals/I&O Vitals/I&O: Vital Signs Date Time Temp Pulse Resp B/P (MAP) Pulse Ox O2 Delivery O2 Flow Rate FiO2 01/24/22 15:53 98 Nasal Cannula 3.0 01/24/22 15:00 98.3 72 20 118/62 (80) 98.3 I & O 01/23/22 01/23/22 01/24/22 15:00 23:00 07:00 Intake Total 480 ml 600 ml 120 ml Output Total 800 ml 150 ml Balance 480 ml -200 ml -30 ml Physical Exam General: Alert, Oriented X3, Cooperative, No acute distress Heart: Regular rate Lungs: Other (Decreased breath sounds at the bases.) Abdomen: Normal bowel sounds Extremities: No cyanosis, Other (2-3+ bilateral LE pitting edema) Skin: No breakdown, No significant lesion Labs Labs: Laboratory Tests Test 01/24/22 06:35 Sodium Level 132 mmol/L (136-145) Potassium Level 4.5 mmol/L (3.5-5.1) Chloride Level 99 mmol/L (98-107) Carbon Dioxide Level 25 mmol/L (21-32) Anion Gap 8 (6-14) Blood Urea Nitrogen 81 mg/dL (8-26) Creatinine 3.7 mg/dL (0.7-1.3) Estimated GFR (Cockcroft-Gault) 15.8 Glucose Level 119 mg/dL (70-99) Calcium Level 7.7 mg/dL (8.5-10.1) Phosphorus Level 5.1 mg/dL (2.6-4.7) Albumin 2.8 g/dL (3.4-5.0) Assessment and Plan Assessmemt and Plan Problems Medical Problems: (1) Bilateral pneumonia Status: Acute (2) CHF exacerbation Status: Acute (3) Chronic renal failure Status: Acute (4) Pleural effusion Status: Acute Comment Review of Relevant I have reviewed the following items earl (where applicable) has been applied. Medications: Current Medications Medications (Trade) Dose Ordered Sig/Thanh Route PRN Reason Start Time Stop Time Status Last Admin Dose Admin Cefdinir (Omnicef) 300 mg BID PO 01/24/22 09:00 01/24/22 09:17 Prednisone (Prednisone) 40 mg DAILY PO 01/24/22 09:00 01/24/22 09:17 Info (Anti-Coagulation Monitoring By Pharmacy) 1 each PRN DAILY PRN MC PER PROTOCOL 01/24/22 15:00 01/24/22 14:48 Justifications for Admission Other Justification ARI KAUFMAN MD January 24, 2022 19:11
[2022-01-24 19:44] VITALS: BP 97/61
[2022-01-24] MEDS: LACTOBACILLUS RHAMNOSUS GG 1 CAPSULE. PO SCH (21:47)
[2022-01-24 23:10] VITALS: BP 94/43
[2022-01-25 03:24] VITALS: BP 118/56
[2022-01-25] MEDS: BUDESONIDE 0.5 MG/2 ML NEBU. NEB SCH ×2 (06:12→18:10)
[2022-01-25] MEDS: IPRATRPIUM/ALBUTEROL 0.5/2.5MG 3 ML NEBU. NEB SCH ×4 (06:12→18:10)
[2022-01-25 07:00] VITALS: BP 120/63
[2022-01-25 08:04] LABS: BASO % 0 % (0-3); EOS % 0 % (0-3); HEMATOCRIT 28.2 % (39.0-53.0); HEMOGLOBIN 9.5 g/dL (13.0-17.5); LYMPH # 1.3 x10^3/uL (1.0-4.8); LYMPH % 16 % (24-48); MEAN CORPUSCULAR HEMOGLOBIN 31 pg (25-35); MEAN CORPUSCULAR HGB CONC 34 g/dL (31-37); MEAN CORPUSCULAR VOLUME 91 fL (79-100); MONO # 0.5 x10^3/uL (0.0-1.1); MONO % 7 % (0-9); NEUT # 6.3 x10^3/uL (1.8-7.7); NEUT % 77 % (31-73); PLATELET COUNT 174 x10^3/uL (140-400); RED BLOOD COUNT 3.12 x10^6/uL (4.30-5.70); RED CELL DISTRIBUTION WIDTH 14.8 % (11.5-14.5); WHITE BLOOD COUNT 8.2 x10^3/uL (4.0-11.0)
[2022-01-25 08:22] LABS: CREATININE 2.2 mg/dL (0.7-1.3); GFR 28.9; POTASSIUM 4.5 mmol/L (3.5-5.1)
[2022-01-25] MEDS: guaiFENesin DM 600/30MG 1 TAB TAB.ER.12H PO SCH ×2 (09:14→21:28)
[2022-01-25] MEDS: LACTOBACILLUS RHAMNOSUS GG 1 CAPSULE. PO SCH ×2 (09:14→21:23)
[2022-01-25] MEDS: CEFDINIR 300 MG CAPSULE PO SCH ×2 (09:14→21:23)
[2022-01-25] MEDS: predniSONE 20 MG TABLET PO SCH (09:15)
[2022-01-25] MEDS: ATORVASTATIN CALCIUM 40 MG TABLET. PO SCH (09:16)
[2022-01-25] MEDS: APIXABAN 5 MG TABLET. PO SCH ×2 (09:16→21:23)
[2022-01-25] MEDS: METOPROLOL SUCC 24HR ER 50 MG TAB.ER.24H. PO SCH (09:19)
[2022-01-25] MEDS: IV NORMAL SALINE 1000ML BAG 1,000 ML IV SCH (09:23)
--- NOTE | 2022-01-25 10:32 | PDOC ---
[facility] PROGRESS NOTE Date of Service DOS: DATE: 01/25/22 TIME: 10:30 Chief Complaint Chief Complaint Community-acquired pneumonia, possible gram-negative or possible gram-positive organism Acute on chronic respiratory failure with hypoxia Acute COPD exacerbation Acute CHF exacerbation CKD 3b Elevated BNP and likely CHF exacerbation Degenerative joint disease of left hip Plan: Patient received Rocephin and Lasix in the ED We will continue treatment with Rocephin IV and doxycycline IV Solu-Medrol every 12 house. Scheduled DuoNeb and consultation to pulmonology ECHO, cards consult Daily lasix Will provide gentle hydration and follow renal function, nephro consult for ckd Pain management for DJD left hip Resume home medications FEN - Cardiac diet PPX - Eliquis FULL CODE/patient names his daughter (Christine Jacobo) as surrogate decision- maker Dispo - inpatient for above History of Present Illness History of Present Illness 01/25: Afebrile, breathing on 3 L nasal cannula. Creatinine 2.2, EGFR 28.9, consistent with CKD 4. Renal function improving with dialysis; patient unsure at this time if he is wanting long-term HD or not. I will defer to nephrology in this regard. 01/24: Patient seen in dialysis. He is breathing comfortably on room air. His leukocytosis resolved, procalcitonin <0.10; no oral cefdinir. He has been initiated on HD. Discussed with patient, hoping this is not a permanent fixture in his kidney function will improve. 01/23 Evaluated examined at bedside. Informed about labs worsening. Renal ultrasound pending. Consult recommendations reviewed. In terms of breathing he says it is improving. He may need dialysis if kidney function continues to worsen 01/22 Patient evaluated examined at bedside up in chair. Said her breathing little bit better and swelling in lower extremities improving. Work with therapy. Recommendations from consultants reviewed. Continue current otherwise. Discu ssed with bedside RN. 01/21 Patient evaluated at bedside. He was sitting up eating lunch. Intermittently coughing harshly. Continuing IV antibiotics and Solu-Medrol. Daily Lasix. Patient said at home over the past week or so he has been unable to complete most of his tasks due to shortness of breath. Will add on therapy. Upholstery Instructor recommendations reviewed. Continue current otherwise. Discussed with bedside RN. Vitals/I&O Vitals/I&O: Vital Signs Date Time Temp Pulse Resp B/P (MAP) Pulse Ox O2 Delivery O2 Flow Rate FiO2 01/25/22 09:20 61 120/63 01/25/22 07:00 98.1 20 94 Nasal Cannula 3.0 98.1 I & O 01/24/22 01/24/22 01/25/22 15:00 23:00 07:00 Intake Total 200 ml 1000 ml 150 ml Output Total 410 ml 500 ml 600 ml Balance -210 ml 500 ml -450 ml Physical Exam General: Alert, Oriented X3, Cooperative, No acute distress Heart: Regular rate Lungs: Other (Decreased breath sounds at the bases.) Abdomen: Normal bowel sounds Extremities: No cyanosis, Other (2-3+ bilateral LE pitting edema) Skin: No breakdown, No significant lesion Labs Labs: Laboratory Tests Test 01/25/22 06:45 White Blood Count 8.2 x10^3/uL (4.0-11.0) Red Blood Count 3.12 x10^6/uL (4.30-5.70) Hemoglobin 9.5 g/dL (13.0-17.5) Hematocrit 28.2 % (39.0-53.0) Mean Corpuscular Volume 91 fL (79-100) Mean Corpuscular Hemoglobin 31 pg (25-35) Mean Corpuscular Hemoglobin Concent 34 g/dL (31-37) Red Cell Distribution Width 14.8 % (11.5-14.5) Platelet Count 174 x10^3/uL (140-400) Neutrophils (%) (Auto) 77 % (31-73) Lymphocytes (%) (Auto) 16 % (24-48) Monocytes (%) (Auto) 7 % (0-9) Eosinophils (%) (Auto) 0 % (0-3) Basophils (%) (Auto) 0 % (0-3) Neutrophils # (Auto) 6.3 x10^3/uL (1.8-7.7) Lymphocytes # (Auto) 1.3 x10^3/uL (1.0-4.8) Monocytes # (Auto) 0.5 x10^3/uL (0.0-1.1) Eosinophils # (Auto) 0.0 x10^3/uL (0.0-0.7) Basophils # (Auto) 0.0 x10^3/uL (0.0-0.2) Sodium Level 138 mmol/L (136-145) Potassium Level 4.5 mmol/L (3.5-5.1) Chloride Level 103 mmol/L (98-107) Carbon Dioxide Level 31 mmol/L (21-32) Anion Gap 4 (6-14) Blood Urea Nitrogen 52 mg/dL (8-26) Creatinine 2.2 mg/dL (0.7-1.3) Estimated GFR (Cockcroft-Gault) 28.9 Glucose Level 91 mg/dL (70-99) Calcium Level 8.0 mg/dL (8.5-10.1) Assessment and Plan Assessmemt and Plan Problems Medical Problems: (1) Bilateral pneumonia Status: Acute (2) CHF exacerbation Status: Acute (3) Chronic renal failure Status: Acute (4) Pleural effusion Status: Acute Comment Review of Relevant I have reviewed the following items earl (where applicable) has been applied. Medications: Current Medications Medications (Trade) Dose Ordered Sig/Thanh Route PRN Reason Start Time Stop Time Status Last Admin Dose Admin Info (Anti-Coagulation Monitoring By Pharmacy) 1 each PRN DAILY PRN MC PER PROTOCOL 01/24/22 15:00 01/24/22 14:48 Lactobacillus Rhamnosus (Culturelle) 1 cap BID PO 01/24/22 21:00 01/25/22 09:14 Justifications for Admission Other Justification TANYA PITTS MD January 25, 2022 10:32
[2022-01-25 11:00] VITALS: BP 123/65
--- NOTE | 2022-01-25 12:06 | PDOC ---
DATE OF SERVICE: DOS: DATE: 01/25/22 TIME: 12:03 SUBJECTIVE ROS Follow-up for FILEMON plus CKD stage III Patient claims he is feeling more or less the same. Still slightly short of breath. No different than from dialysis CVS: no Orthopnea, no CP RESP: min SOB, no MCDANIELS GI: no Nausea, no Vomiting : no Dysuria, no Urgency OBJECTIVE Vital Signs Vital Signs Date Time Temp Pulse Resp B/P (MAP) Pulse Ox O2 Delivery O2 Flow Rate FiO2 01/25/22 11:07 98 Nasal Cannula 2.0 01/25/22 09:20 61 120/63 01/25/22 07:00 98.1 20 98.1 I & 0 Intake and Output 01/25/22 07:00 Intake Total 1350 ml Output Total 1510 ml Balance -160 ml Intake Oral 350 ml IV Total 1000 ml Output Urine Total 1510 ml PHYSICAL EXAM Physical Exam GEN: Awake, Oriented x 3, In no distress EYES: Vision Unchanged, Conjunctiva Normal EN: No EN Drainage, Mucous Membranes moist NECK: no JVD, no JVP, Supple, no Thyromegaly CVS: S1S2, ? Murmur, No Gallop, No Rub,no Edema RESP: no Rales, no Rhonchi,no Acc. Muscle Use GI: BS + ve, NO Bruit, Non Tender, Non Distended : no CVA tenderness, no Suprapubic Tenderness DIAGNOSIS/ASSESSMENT Assessment & Plan ARF + CKD III: Current fluid and E-lyte status does not necessitate emergent need for dialysis. Will re-evaluate for dialysis in the am and continue in the morning if required Previous hyperkalemia: Now resolved. ANEMIA; may need Aranap ordered, Transfuse as needed for hemoglobin less than 7 HTN: Current BP meds as reviewed. See orders for changes. BONE & MINERAL: Minimally elevated phosphorus: Watch trend Discussed Plan of Care with family (son) at bedside COMMENT/RELEVANT DATA Meds Current Medications Medications (Trade) Dose Ordered Sig/Thanh Start Time Stop Time Status Last Admin Dose Admin Acetaminophen (Tylenol) 650 mg PRN Q6HRS PRN 01/20/22 16:15 Acetaminophen/ Hydrocodone Bitart (Lortab 5/325) 2 tab PRN Q4HRS PRN 01/20/22 16:15 01/22/22 22:24 2 TAB Al Hydroxide/Mg Hydroxide (Mylanta Plus Xs) 30 ml PRN Q3HRS PRN 01/20/22 16:15 Albuterol/ Ipratropium (Duoneb) 3 ml RTQID 01/20/22 20:00 01/25/22 11:07 3 ML Amlodipine Besylate (Norvasc) 5 mg DAILY 01/21/22 09:00 01/25/22 09:20 5 MG Apixaban (Eliquis) 2.5 mg BID 01/20/22 21:00 01/25/22 09:16 2.5 MG Atorvastatin Calcium (Lipitor) 80 mg DAILY 01/21/22 09:00 01/25/22 09:16 80 MG Benzonatate (Tessalon Perle) 100 mg TID PRN 01/20/22 16:30 Budesonide (Pulmicort) 0.5 mg RTBID 01/21/22 13:00 01/25/22 06:12 0.5 MG Calcium Carbonate/ Glycine (Tums) 500 mg PRN Q3HRS PRN 01/20/22 16:15 Cefdinir (Omnicef) 300 mg BID 01/24/22 09:00 01/25/22 09:14 300 MG Ceftriaxone Sodium (Rocephin) 1 gm DAILY 01/21/22 09:00 01/23/22 10:05 DC 01/23/22 08:02 1 GM Doxycycline Hyclate (Vibra-Tab) 100 mg BID 01/23/22 21:00 01/23/22 10:05 DC Doxycycline Hyclate 100 mg/ Dextrose 100 ml @ 50 mls/hr BID 01/20/22 21:00 01/23/22 10:05 DC 01/23/22 08:02 50 MLS/HR Fentanyl Citrate (Fentanyl 2ml Vial) 50 mcg PRN Q1HR PRN 01/20/22 15:30 01/21/22 15:29 DC Furosemide (Lasix) 40 mg STK-MED ONCE 01/20/22 15:14 01/22/22 09:27 DC Guaifenesin (MUCINEX ER with DM) 1 tab BID 01/20/22 21:00 01/25/22 09:14 1 TAB Guaifenesin/ Codeine Phosphate (Robitussin Ac) 5 ml PRN Q6HRS PRN 01/20/22 16:30 5/7/22 21:48 5 ML Info (Anti-Coagulation Monitoring By Pharmacy) 1 each PRN DAILY PRN 01/24/22 15:00 01/24/22 14:48 1 EACH Info (PHARMACY MONITORING -- do not chart) 1 each PRN DAILY PRN 01/24/22 11:15 UNV Lactobacillus Rhamnosus (Culturelle) 1 cap BID 01/24/22 21:00 01/25/22 09:14 1 CAP Lidocaine HCl (Buffered Lidocaine 1%) 3 ml STK-MED ONCE 01/23/22 14:02 01/24/22 14:55 DC Lisinopril (Prinivil) 20 mg DAILY 01/21/22 09:00 01/22/22 12:11 DC 01/22/22 09:17 20 MG Magnesium Hydroxide (Milk Of Magnesia) 2,400 mg PRN Q12HR PRN 01/20/22 16:15 Methylprednisolone Sodium Succinate (SOLU-Medrol 40MG VIAL) 40 mg Q12HR 01/21/22 10:00 01/23/22 10:05 DC 01/23/22 07:59 40 MG Metoprolol Succinate (Toprol Xl) 50 mg DAILY 01/21/22 09:00 01/25/22 09:19 50 MG Morphine Sulfate (Morphine Sulfate) 2 mg PRN Q1HR PRN 01/20/22 16:15 01/21/22 03:15 2 MG Non-Formulary Medication (Umeclidinium Brm/Vilanterol Tr (Anoro Ellipta 62.5-25 Mcg Inh)) 1 puff DAILY 01/21/22 09:00 01/20/22 19:34 DC Ondansetron HCl (Zofran) 4 mg PRN Q6HRS PRN 01/20/22 16:15 Oxycodone/ Acetaminophen (Percocet 5/325) 1 tab PRN Q4HRS PRN 01/20/22 16:15 01/21/22 20:52 1 TAB Prednisone (Prednisone) 40 mg DAILY 01/24/22 09:00 01/25/22 09:15 40 MG Sodium Chloride 1,000 ml @ 400 mls/hr Q2H30M PRN 01/24/22 11:15 01/24/22 23:14 DC Zolpidem Tartrate (Ambien) 5 mg PRN QHS PRN 01/20/22 16:15 01/21/22 21:31 5 MG Lab Laboratory Tests Test 01/25/22 06:45 White Blood Count 8.2 x10^3/uL (4.0-11.0) Red Blood Count 3.12 x10^6/uL (4.30-5.70) Hemoglobin 9.5 g/dL (13.0-17.5) Hematocrit 28.2 % (39.0-53.0) Mean Corpuscular Volume 91 fL (79-100) Mean Corpuscular Hemoglobin 31 pg (25-35) Mean Corpuscular Hemoglobin Concent 34 g/dL (31-37) Red Cell Distribution Width 14.8 % (11.5-14.5) Platelet Count 174 x10^3/uL (140-400) Neutrophils (%) (Auto) 77 % (31-73) Lymphocytes (%) (Auto) 16 % (24-48) Monocytes (%) (Auto) 7 % (0-9) Eosinophils (%) (Auto) 0 % (0-3) Basophils (%) (Auto) 0 % (0-3) Neutrophils # (Auto) 6.3 x10^3/uL (1.8-7.7) Lymphocytes # (Auto) 1.3 x10^3/uL (1.0-4.8) Monocytes # (Auto) 0.5 x10^3/uL (0.0-1.1) Eosinophils # (Auto) 0.0 x10^3/uL (0.0-0.7) Basophils # (Auto) 0.0 x10^3/uL (0.0-0.2) Sodium Level 138 mmol/L (136-145) Potassium Level 4.5 mmol/L (3.5-5.1) Chloride Level 103 mmol/L (98-107) Carbon Dioxide Level 31 mmol/L (21-32) Anion Gap 4 (6-14) Blood Urea Nitrogen 52 mg/dL (8-26) Creatinine 2.2 mg/dL (0.7-1.3) Estimated GFR (Cockcroft-Gault) 28.9 Glucose Level 91 mg/dL (70-99) Calcium Level 8.0 mg/dL (8.5-10.1) Results All relevant outside records, renal labs, imaging studies, telemetry/EKG's were reviewed. Justicifation of Admission Dx: Justifications for Admission: Justification of Admission Dx: Yes ESTEBAN VILLANUEVA MD January 25, 2022 12:05
[2022-01-25] MEDS: ANTI-COAG MONITOR BY PHARMACY. MC PRN (13:35)
--- NOTE | 2022-01-25 13:51 | PDOC ---
PROGRESS NOTES Date of Service DATE: 01/25/22 TIME: 13:49 Subjective Subjective Patient seen and examined Objective Objective Vital Signs Date Time Temp Pulse Resp B/P (MAP) Pulse Ox O2 Delivery O2 Flow Rate FiO2 01/25/22 11:07 98 Nasal Cannula 2.0 01/25/22 11:00 98.1 68 20 123/65 (84) 98.1 Intake and Output 01/25/22 07:00 Intake Total 1350 ml Output Total 1510 ml Balance -160 ml Intake Oral 350 ml IV Total 1000 ml Output Urine Total 1510 ml Physical Exam Abdomen: Normal bowel sounds Heart: Regular rate General: mild distress Lungs: Other (Mildly decreased breath sounds) Assessment Assessment Problems Medical Problems: (1) Bilateral pneumonia Status: Acute (2) CHF exacerbation Status: Acute (3) Chronic renal failure Status: Acute (4) Pleural effusion Status: Acute 1. Acute on chronic respiratory failure with AECOPD, CHF and possible PNA. Improving on present treatment. 2. Acute on chronic diastolic CHF: EF and WM nml per TTE. better compensated 3. Valvular insufficiency: Mild to moderate and MR, Mild TR: 4. CAD; past CABG and PCI, clinically stable 5. 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 [employer]. Recent interrogation 01/08/2022 revealed no significant arrhythmias, nml device with 11 yrs battery life. Chronic RBBB 6. PAFIB: presently V paced with AFIB rate controlled. on home eliquis 7. HTN: controlled 9. HLP 10. FILEMON on CKD: Creatinine decreased from 3.7 to 2.2 today. Followed and treated by the renal service. Comment Review of Relevant I have reviewed the following items eral (where applicable) has been applied. Labs Laboratory Tests Test 01/24/22 06:35 01/25/22 06:45 Sodium Level 132 mmol/L (136-145) 138 mmol/L (136-145) Potassium Level 4.5 mmol/L (3.5-5.1) 4.5 mmol/L (3.5-5.1) Chloride Level 99 mmol/L (98-107) 103 mmol/L (98-107) Carbon Dioxide Level 25 mmol/L (21-32) 31 mmol/L (21-32) Anion Gap 8 (6-14) 4 (6-14) Blood Urea Nitrogen 81 mg/dL (8-26) 52 mg/dL (8-26) Creatinine 3.7 mg/dL (0.7-1.3) 2.2 mg/dL (0.7-1.3) Estimated GFR (Cockcroft-Gault) 15.8 28.9 Glucose Level 119 mg/dL (70-99) 91 mg/dL (70-99) Calcium Level 7.7 mg/dL (8.5-10.1) 8.0 mg/dL (8.5-10.1) Phosphorus Level 5.1 mg/dL (2.6-4.7) Albumin 2.8 g/dL (3.4-5.0) White Blood Count 8.2 x10^3/uL (4.0-11.0) Red Blood Count 3.12 x10^6/uL (4.30-5.70) Hemoglobin 9.5 g/dL (13.0-17.5) Hematocrit 28.2 % (39.0-53.0) Mean Corpuscular Volume 91 fL (79-100) Mean Corpuscular Hemoglobin 31 pg (25-35) Mean Corpuscular Hemoglobin Concent 34 g/dL (31-37) Red Cell Distribution Width 14.8 % (11.5-14.5) Platelet Count 174 x10^3/uL (140-400) Neutrophils (%) (Auto) 77 % (31-73) Lymphocytes (%) (Auto) 16 % (24-48) Monocytes (%) (Auto) 7 % (0-9) Eosinophils (%) (Auto) 0 % (0-3) Basophils (%) (Auto) 0 % (0-3) Neutrophils # (Auto) 6.3 x10^3/uL (1.8-7.7) Lymphocytes # (Auto) 1.3 x10^3/uL (1.0-4.8) Monocytes # (Auto) 0.5 x10^3/uL (0.0-1.1) Eosinophils # (Auto) 0.0 x10^3/uL (0.0-0.7) Basophils # (Auto) 0.0 x10^3/uL (0.0-0.2) Laboratory Tests Test 01/25/22 06:45 White Blood Count 8.2 x10^3/uL (4.0-11.0) Red Blood Count 3.12 x10^6/uL (4.30-5.70) Hemoglobin 9.5 g/dL (13.0-17.5) Hematocrit 28.2 % (39.0-53.0) Mean Corpuscular Volume 91 fL (79-100) Mean Corpuscular Hemoglobin 31 pg (25-35) Mean Corpuscular Hemoglobin Concent 34 g/dL (31-37) Red Cell Distribution Width 14.8 % (11.5-14.5) Platelet Count 174 x10^3/uL (140-400) Neutrophils (%) (Auto) 77 % (31-73) Lymphocytes (%) (Auto) 16 % (24-48) Monocytes (%) (Auto) 7 % (0-9) Eosinophils (%) (Auto) 0 % (0-3) Basophils (%) (Auto) 0 % (0-3) Neutrophils # (Auto) 6.3 x10^3/uL (1.8-7.7) Lymphocytes # (Auto) 1.3 x10^3/uL (1.0-4.8) Monocytes # (Auto) 0.5 x10^3/uL (0.0-1.1) Eosinophils # (Auto) 0.0 x10^3/uL (0.0-0.7) Basophils # (Auto) 0.0 x10^3/uL (0.0-0.2) Sodium Level 138 mmol/L (136-145) Potassium Level 4.5 mmol/L (3.5-5.1) Chloride Level 103 mmol/L (98-107) Carbon Dioxide Level 31 mmol/L (21-32) Anion Gap 4 (6-14) Blood Urea Nitrogen 52 mg/dL (8-26) Creatinine 2.2 mg/dL (0.7-1.3) Estimated GFR (Cockcroft-Gault) 28.9 Glucose Level 91 mg/dL (70-99) Calcium Level 8.0 mg/dL (8.5-10.1) Microbiology 01/20/22 Blood Culture - Preliminary, Resulted NO GROWTH AFTER 4 DAYS Medications Current Medications Morphine Sulfate (Morphine Sulfate) 2 mg PRN Q15MIN PRN IV/SQ PAIN GREATER THAN 3/10 Last administered on 01/20/22at 15:13; Start 01/20/22 at 13:45; Stop 01/21/22 at 12:23; Status DC Furosemide (Lasix) 40 mg DAILY IVP Last administered on 01/20/22at 15:24; Start 01/21/22 at 09:00; Stop 01/21/22 at 03:48; Status DC Ceftriaxone Sodium (Rocephin) 1 gm 1X ONCE IVP Last administered on 01/20/22at 15:23; Start 01/20/22 at 15:15; Stop 01/20/22 at 15:16; Status DC Ondansetron HCl (Zofran) 4 mg PRN Q8HRS PRN IVP NAUSEA/VOMITING; Start 01/20/22 at 15:30; Stop 01/21/22 at 12:23; Status DC Fentanyl Citrate (Fentanyl 2ml Vial) 50 mcg PRN Q1HR PRN IVP PAIN; Start 01/20/22 at 15:30; Stop 01/21/22 at 15:29; Status DC Acetaminophen (Tylenol) 650 mg PRN Q4HRS PRN PO FEVER > 100.3'F; Start 01/20/22 at 15:30; Stop 01/21/22 at 12:23; Status DC Methylprednisolone Sodium Succinate (SOLU-Medrol 40MG VIAL) 40 mg PRN Q12HRS IV ; Start 01/20/22 at 16:15; Stop 01/21/22 at 09:59; Status DC Ceftriaxone Sodium (Rocephin) 1 gm DAILY IVP Last administered on 01/23/22at 08:02; Start 01/21/22 at 09:00; Stop 01/23/22 at 10:05; Status DC Doxycycline Hyclate 100 mg/ Dextrose 100 ml @ 50 mls/hr BID IV Last administered on 01/23/22at 08:02; Start 01/20/22 at 21:00; Stop 01/23/22 at 10:05; Status DC Albuterol/ Ipratropium (Duoneb) 3 ml RTQID NEB Last administered on 01/25/22at 11:07; Start 01/20/22 at 20:00 Ondansetron HCl (Zofran) 4 mg PRN Q6HRS PRN IVP NAUSEA/VOMITING; Start 01/20/22 at 16:15 Al Hydroxide/Mg Hydroxide (Mylanta Plus Xs) 30 ml PRN Q3HRS PRN PO HEARTBURN / GAS; Start 01/20/22 at 16:15 Calcium Carbonate/ Glycine (Tums) 500 mg PRN Q3HRS PRN PO UPSET STOMACH; Start 01/20/22 at 16:15 Zolpidem Tartrate (Ambien) 5 mg PRN QHS PRN PO INSOMNIA, MAY REPEAT IN 1HR Last administered on 01/21/22 21:31; Start 01/20/22 at 16:15 Morphine Sulfate (Morphine Sulfate) 2 mg PRN Q1HR PRN IV PAIN Last administered on 01/21/22 03:15; Start 01/20/22 at 16:15 Acetaminophen/ Hydrocodone Bitart (Lortab 5/325) 1 tab PRN Q4HRS PRN PO MILD PAIN 1-3 Last administered on 01/24/22 14:32; Start 01/20/22 at 16:15 Acetaminophen/ Hydrocodone Bitart (Lortab 5/325) 2 tab PRN Q4HRS PRN PO MODERATE PAIN, SEVERE PAIN Last administered on 01/22/22 22:24; Start 01/20/22 at 16:15 Oxycodone/ Acetaminophen (Percocet 5/325) 1 tab PRN Q4HRS PRN PO MILD PAIN, 2ND CHOICE Last administered on 01/21/22at 20:52; Start 01/20/22 at 16:15 Acetaminophen (Tylenol) 650 mg PRN Q6HRS PRN PO Headaches, Temp > 101.5F; Start 01/20/22 at 16:15 Magnesium Hydroxide (Milk Of Magnesia) 2,400 mg PRN Q12HR PRN PO CONSTIPATION; Start 01/20/22 at 16:15 Guaifenesin/ Codeine Phosphate (Robitussin Ac) 5 ml PRN Q6HRS PRN PO COUGH Last administered on 01/24/22 21:48; Start 01/20/22 at 16:30 Benzonatate (Tessalon Perle) 100 mg TID PRN PO COUGH; Start 01/20/22 at 16:30 Guaifenesin (MUCINEX ER with DM) 1 tab BID PO Last administered on 01/25/22at 09:14; Start 01/20/22 at 21:00 Amlodipine Besylate (Norvasc) 5 mg DAILY PO Last administered on 01/25/22at 09:20; Start 01/21/22 at 09:00 Apixaban (Eliquis) 2.5 mg BID PO Last administered on 01/25/22at 09:16; Start 01/20/22 at 21:00 Lisinopril (Prinivil) 20 mg DAILY PO Last administered on 01/22/22at 09:17; S tart 01/21/22 at 09:00; Stop 01/22/22 at 12:11; Status DC Metoprolol Succinate (Toprol Xl) 50 mg DAILY PO Last administered on 01/25/22at 09:19; Start 01/21/22 at 09:00 Atorvastatin Calcium (Lipitor) 80 mg DAILY PO Last administered on 01/25/22at 09:16; Start 01/21/22 at 09:00 Non-Formulary Medication (Umeclidinium Brm/Vilanterol Tr (Anoro Ellipta 62.5-25 Mcg Inh)) 1 puff DAILY INH ; Start 01/21/22 at 09:00; Stop 01/20/22 at 19:34; Status DC Furosemide (Lasix) 20 mg DAILY IVP Last administered on 01/22/22at 09:16; Start 01/21/22 at 09:00; Stop 01/22/22 at 12:11; Status DC Methylprednisolone Sodium Succinate (SOLU-Medrol 40MG VIAL) 40 mg Q12HR IV Last administered on 01/23/22at 07:59; Start 01/21/22 at 10:00; Stop 01/23/22 at 10:05; Status DC Budesonide (Pulmicort) 0.5 mg RTBID NEB Last administered on 01/25/22at 06:12; Start 01/21/22 at 13:00 Furosemide (Lasix) 40 mg STK-MED ONCE .ROUTE ; Start 01/20/22 at 15:14; Stop 01/22/22 at 09:27; Status DC Sodium Chloride 1,000 ml @ 75 mls/hr 1X ONCE IV Last administered on 01/22/22at 12:35; Start 01/22/22 at 12:15; Stop 01/23/22 at 01:34; Status DC Doxycycline Hyclate (Vibra-Tab) 100 mg BID PO ; Start 01/23/22 at 21:00; Stop 01/23/22 at 10:05; Status DC Cefdinir (Omnicef) 300 mg BID PO Last administered on 01/25/22at 09:14; Start 01/24/22 at 09:00 Prednisone (Prednisone) 40 mg DAILY PO Last administered on 01/25/22at 09:15; Start 01/24/22 at 09:00 Sodium Chloride 1,000 ml @ 60 mls/hr [id number] IV Last administered on 01/25/22at 09:23; Start 01/23/22 at 13:30 Lidocaine HCl (Buffered Lidocaine 1%) 6 ml 1X ONCE INJ Last administered on 01/23/22at 14:30; Start 01/23/22 at 14:15; Stop 01/23/22 at 14:16; Status DC Sodium Chloride 1,000 ml @ 1,000 mls/hr Q1H PRN IV hypotension; Start 01/24/22 at 11:15; Stop 01/24/22 at 17:14; Status DC Sodium Chloride 1,000 ml @ 400 mls/hr Q2H30M PRN IV PATENCY; Start 01/24/22 at 11:15; Stop 01/24/22 at 23:14; Status DC Info (PHARMACY MONITORING -- do not chart) 1 each PRN DAILY PRN MC SEE COMMENTS; Start 01/24/22 at 11:15 Info (PHARMACY MONITORING -- do not chart) 1 each PRN DAILY PRN MC SEE COMMENTS; Start 01/24/22 at 11:15; Status UNV Info (Anti-Coagulation Monitoring By Pharmacy) 1 each PRN DAILY PRN MC PER PROTOCOL Last administered on 01/25/22at 13:35; Start 01/24/22 at 15:00 Lidocaine HCl (Buffered Lidocaine 1%) 3 ml STK-MED ONCE .ROUTE ; Start 01/23/22 at 14:02; Stop 01/24/22 at 14:55; Status DC Lactobacillus Rhamnosus (Culturelle) 1 cap BID PO Last administered on 01/25/22at 09:14; Start 01/24/22 at 21:00 Active Scripts Active Reported Albuterol Sulfate Neb Soln (Albuterol Sulfate) 2.5 Mg/3 Ml Vial.neb 1 Vial NEB QID PRN Metoprolol Succinate ( Xl ) (Metoprolol Succinate) 25 Mg Tab.er.24h 2 Tab PO DAILY Anoro Ellipta 62.5-25 Mcg Inh (Umeclidinium Brm/Vilanterol Tr) 1 Each Disk.w.dev 1 Puff INH DAILY Eliquis (Apixaban) 5 Mg Tablet 1 Tab PO BID Rosuvastatin Calcium 40 Mg Tablet 1 Tab PO DAILY Amlodipine Besylate 5 Mg Tablet 1 Tab PO DAILY Lisinopril 20 Mg Tablet 1 Tab PO DAILY Potassium Chloride 20 Meq Tablet.er 1 Tab PO DAILY Furosemide 40 Mg Tablet 1 Tab PO DAILY No Known Medications Prior To Admisstion (Info) Each 1 Each Vitals/I & O Vital Sign - Last 24 Hours 01/24/22 01/24/22 01/24/22 01/24/22 14:32 15:00 15:05 15:53 Temp 98.3 98.3 Pulse 72 Resp 19 20 18 B/P (MAP) 118/62 (80) Pulse Ox 96 95 98 98 O2 Delivery Nasal Cannula Nasal Cannula Nasal Cannula Nasal Cannula O2 Flow Rate 2.0 3.0 3.0 3.0 01/24/22 01/24/22 01/24/22 01/24/22 19:44 19:52 20:00 23:10 Temp 98.4 98.3 98.4 98.3 Pulse 87 73 Resp 16 16 B/P (MAP) 97/61 (73) 94/43 (60) Pulse Ox 91 96 93 O2 Delivery Nasal Cannula Nasal Cannula Nasal Cannula Nasal Cannula O2 Flow Rate 3.0 2.0 3.0 3.0 01/25/22 01/25/22 01/25/22 01/25/22 03:24 06:12 07:00 08:00 Temp 98.3 98.1 98.3 98.1 Pulse 66 71 Resp 20 20 B/P (MAP) 118/56 (76) 120/63 (82) Pulse Ox 95 96 94 O2 Delivery Nasal Cannula Nasal Cannula Nasal Cannula Nasal Cannula O2 Flow Rate 3.0 3.0 3.0 2.0 01/25/22 01/25/22 01/25/22 01/25/22 09:19 09:20 11:00 11:07 Temp 98.1 98.1 Pulse 61 61 68 Resp 20 B/P (MAP) 120/63 120/63 123/65 (84) Pulse Ox 94 98 O2 Delivery Nasal Cannula Nasal Cannula O2 Flow Rate 3.0 2.0 Intake and Output 01/24/22 01/24/22 01/25/22 15:00 23:00 07:00 Intake Total 200 ml 1000 ml 150 ml Output Total 410 ml 500 ml 600 ml Balance -210 ml 500 ml -450 ml Justifications for Admission Other Justification BLAS BERGERON MD January 25, 2022 13:51
[2022-01-25 15:00] VITALS: BP 118/63
[2022-01-25] MEDS ORDERED: BENZONATATE 100 MG CAPSULE. PO PRN (16:00)
[2022-01-25 19:42] VITALS: BP 123/62
[2022-01-25] MEDS: guaiFENesin/CODEINE 100mg/10mg 5 ML LIQUID PO PRN (21:22)
[2022-01-25] MEDS: oxyCODONE/APAP 5/325 1 TAB TABLET PO PRN (22:52)
[2022-01-25 23:45] VITALS: BP 121/57
[2022-01-25] MEDS: ZOLPIDEM 5 MG TABLET. PO PRN (23:46)
[2022-01-26 03:43] VITALS: BP 116/61
[2022-01-26 04:37] LABS: BASO % 0 % (0-3); EOS % 0 % (0-3); HEMATOCRIT 29.1 % (39.0-53.0); HEMOGLOBIN 9.6 g/dL (13.0-17.5); LYMPH # 1.4 x10^3/uL (1.0-4.8); LYMPH % 15 % (24-48); MEAN CORPUSCULAR HEMOGLOBIN 30 pg (25-35); MEAN CORPUSCULAR HGB CONC 33 g/dL (31-37); MEAN CORPUSCULAR VOLUME 91 fL (79-100); MONO # 0.5 x10^3/uL (0.0-1.1); MONO % 5 % (0-9); NEUT # 7.9 x10^3/uL (1.8-7.7); NEUT % 80 % (31-73); PLATELET COUNT 188 x10^3/uL (140-400); RED BLOOD COUNT 3.19 x10^6/uL (4.30-5.70); RED CELL DISTRIBUTION WIDTH 14.7 % (11.5-14.5); WHITE BLOOD COUNT 9.8 x10^3/uL (4.0-11.0)
[2022-01-26 04:52] LABS: CALCIUM 8.2 mg/dL (8.5-10.1); CREATININE 1.9 mg/dL (0.7-1.3); GFR 34.2; POTASSIUM 4.8 mmol/L (3.5-5.1)
[2022-01-26 07:00] VITALS: BP 137/71
[2022-01-26] MEDS ORDERED: IV NORMAL SALINE 1000ML BAG 1,000 ML IV PRN ×2 (07:30)
[2022-01-26] MEDS ORDERED: DIALYSIS PATIENT. MC PRN (07:30)
[2022-01-26] MEDS: BUDESONIDE 0.5 MG/2 ML NEBU. NEB SCH ×2 (07:45→20:40)
[2022-01-26] MEDS: IPRATRPIUM/ALBUTEROL 0.5/2.5MG 3 ML NEBU. NEB SCH ×4 (07:45→20:42)
[2022-01-26] MEDS: HYDROcodone/APAP 5/325MG 1 TAB TABLET PO PRN ×3 (08:39→21:58)
[2022-01-26] MEDS: ATORVASTATIN CALCIUM 40 MG TABLET. PO SCH (09:00)
--- NOTE | 2022-01-26 09:18 | PDOC ---
DATE OF SERVICE DATE: 01/26/22 TIME: 09:18 SUBJECTIVE ROS Stable, No complaints on dialysis OBJECTIVE Vital Signs Vital Signs Date Time Temp Pulse Resp B/P (MAP) Pulse Ox O2 Delivery O2 Flow Rate FiO2 01/26/22 07:46 98 Nasal Cannula 2.0 01/26/22 07:00 97.4 65 20 137/71 (93) 97.4 I & 0 Intake and Output 01/26/22 07:00 Intake Total 830 ml Output Total 750 ml Balance 80 ml Intake Oral 830 ml Output Urine Total 750 ml PHYSICAL EXAM Physical Exam General: NAD HEENT: Atraumatic, OM moist Neck Supple Lungs: bibasilar rales, Non labored Heart: RRR, systolic murmur, midline sternotomy scar Cardiovascular: S1, S2 Abdomen: Normal bowel sounds, Soft, No tenderness Extremities: +1 bilateral leg edema Skin: No Rash Neuro:Grossly normal, moving all 4 extremities Psych/Mental Status: Mental status NL, Mood NL No V[place], No CVA or SP tenderness DIAGNOSIS/ASSESSMENT Assessment & Plan FILEMON on CKD - Initiated on Dialysis 01/24/2022 , 2 nd treatment today . Monitor for renal recovery Supportive care, Avoid Nephrotoxins, Renal US stable cysts, no new findings . Strict I/O , daily standing weight CKD stage 3 B follows with [facility] nephrology . Reviewed Records from his primary Pool Installer - Dr Viveros, last seen 12/22 2021 Cr 1.68 Baseline Cr 1.5 - 2.1(11/2020) , CKD at least since 2020 . No mention of Kidney Bx. Rest of the [place] negative. Suspected 2/2 HTN sive Nephrosclerosis Renal cysts- US in Jul 2021, repeat 01/23 - Bilateral renal cysts. Microscopic hematuria- Was Referred to urology by Dr Viveros .Patient doesnt recall any intervention . 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 PAFIB: COMMENT/RELEVANT DATA Meds Current Medications Medications (Trade) Dose Ordered Sig/Thanh Start Time Stop Time Status Last Admin Dose Admin Acetaminophen (Tylenol) 650 mg PRN Q6HRS PRN 01/20/22 16:15 Acetaminophen/ Hydrocodone Bitart (Lortab 5/325) 2 tab PRN Q4HRS PRN 01/20/22 16:15 01/22/22 22:24 2 TAB Al Hydroxide/Mg Hydroxide (Mylanta Plus Xs) 30 ml PRN Q3HRS PRN 01/20/22 16:15 Albuterol/ Ipratropium (Duoneb) 3 ml RTQID 01/20/22 20:00 01/26/22 07:45 3 ML Amlodipine Besylate (Norvasc) 5 mg DAILY 01/21/22 09:00 01/25/22 09:20 5 MG Apixaban (Eliquis) 2.5 mg BID 01/20/22 21:00 01/25/22 21:23 2.5 MG Atorvastatin Calcium (Lipitor) 80 mg DAILY 01/21/22 09:00 01/25/22 09:16 80 MG Benzonatate (Tessalon Perle) 100 mg PRN TID PRN 01/25/22 16:00 Budesonide (Pulmicort) 0.5 mg RTBID 01/21/22 13:00 01/26/22 07:45 0.5 MG Calcium Carbonate/ Glycine (Tums) 500 mg PRN Q3HRS PRN 01/20/22 16:15 Cefdinir (Omnicef) 300 mg BID 01/24/22 09:00 01/25/22 21:23 300 MG Ceftriaxone Sodium (Rocephin) 1 gm DAILY 01/21/22 09:00 01/23/22 10:05 DC 01/23/22 08:02 1 GM Doxycycline Hyclate (Vibra-Tab) 100 mg BID 01/23/22 21:00 01/23/22 10:05 DC Doxycycline Hyclate 100 mg/ Dextrose 100 ml @ 50 mls/hr BID 01/20/22 21:00 01/23/22 10:05 DC 01/23/22 08:02 50 MLS/HR Fentanyl Citrate (Fentanyl 2ml Vial) 50 mcg PRN Q1HR PRN 01/20/22 15:30 01/21/22 15:29 DC Furosemide (Lasix) 40 mg STK-MED ONCE 01/20/22 15:14 01/22/22 09:27 DC Guaifenesin (MUCINEX ER with DM) 1 tab BID 01/20/22 21:00 01/25/22 21:28 1 TAB Guaifenesin/ Codeine Phosphate (Robitussin Ac) 5 ml PRN Q6HRS PRN 01/20/22 16:30 01/25/22 21:22 5 ML Info (Anti-Coagulation Monitoring By Pharmacy) 1 each PRN DAILY PRN 01/24/22 15:00 01/25/22 13:35 1 EACH Info (PHARMACY MONITORING -- do not chart) 1 each PRN DAILY PRN 01/26/22 07:30 Lactobacillus Rhamnosus (Culturelle) 1 cap BID 01/24/22 21:00 01/25/22 21:23 1 CAP Lidocaine HCl (Buffered Lidocaine 1%) 3 ml STK-MED ONCE 01/23/22 14:02 01/24/22 14:55 DC Lisinopril (Prinivil) 20 mg DAILY 01/21/22 09:00 01/22/22 12:11 DC 01/22/22 09:17 20 MG Magnesium Hydroxide (Milk Of Magnesia) 2,400 mg PRN Q12HR PRN 01/20/22 16:15 Methylprednisolone Sodium Succinate (SOLU-Medrol 40MG VIAL) 40 mg Q12HR 01/21/22 10:00 01/23/22 10:05 DC 01/23/22 07:59 40 MG Metoprolol Succinate (Toprol Xl) 50 mg DAILY 01/21/22 09:00 01/25/22 09:19 50 MG Morphine Sulfate (Morphine Sulfate) 2 mg PRN Q1HR PRN 01/20/22 16:15 01/21/22 03:15 2 MG Non-Formulary Medication (Umeclidinium Brm/Vilanterol Tr (Anoro Ellipta 62.5-25 Mcg Inh)) 1 puff DAILY 01/21/22 09:00 01/20/22 19:34 DC Ondansetron HCl (Zofran) 4 mg PRN Q6HRS PRN 01/20/22 16:15 Oxycodone/ Acetaminophen (Percocet 5/325) 1 tab PRN Q4HRS PRN 01/20/22 16:15 01/25/22 22:52 1 TAB Prednisone (Prednisone) 40 mg DAILY 01/24/22 09:00 01/25/22 09:15 40 MG Sodium Chloride 1,000 ml @ 400 mls/hr Q2H30M PRN 01/26/22 07:30 01/26/22 19:29 Zolpidem Tartrate (Ambien) 5 mg PRN QHS PRN 01/20/22 16:15 01/25/22 23:46 5 MG Lab Laboratory Tests Test 01/26/22 04:00 White Blood Count 9.8 x10^3/uL (4.0-11.0) Red Blood Count 3.19 x10^6/uL (4.30-5.70) Hemoglobin 9.6 g/dL (13.0-17.5) Hematocrit 29.1 % (39.0-53.0) Mean Corpuscular Volume 91 fL (79-100) Mean Corpuscular Hemoglobin 30 pg (25-35) Mean Corpuscular Hemoglobin Concent 33 g/dL (31-37) Red Cell Distribution Width 14.7 % (11.5-14.5) Platelet Count 188 x10^3/uL (140-400) Neutrophils (%) (Auto) 80 % (31-73) Lymphocytes (%) (Auto) 15 % (24-48) Monocytes (%) (Auto) 5 % (0-9) Eosinophils (%) (Auto) 0 % (0-3) Basophils (%) (Auto) 0 % (0-3) Neutrophils # (Auto) 7.9 x10^3/uL (1.8-7.7) Lymphocytes # (Auto) 1.4 x10^3/uL (1.0-4.8) Monocytes # (Auto) 0.5 x10^3/uL (0.0-1.1) Eosinophils # (Auto) 0.0 x10^3/uL (0.0-0.7) Basophils # (Auto) 0.0 x10^3/uL (0.0-0.2) Sodium Level 139 mmol/L (136-145) Potassium Level 4.8 mmol/L (3.5-5.1) Chloride Level 105 mmol/L (98-107) Carbon Dioxide Level 30 mmol/L (21-32) Anion Gap 4 (6-14) Blood Urea Nitrogen 46 mg/dL (8-26) Creatinine 1.9 mg/dL (0.7-1.3) Estimated GFR (Cockcroft-Gault) 34.2 Glucose Level 109 mg/dL (70-99) Calcium Level 8.2 mg/dL (8.5-10.1) Results All relevant outside records, renal labs, imaging studies, telemetry/EKG's were reviewed. Justicifation of Admission Dx: Justifications for Admission: Justification of Admission Dx: Yes KATIE STAHL MD January 26, 2022 09:18
--- NOTE | 2022-01-26 11:02 | PDOC ---
PULMONARY PROGRESS NOTES DATE: 01/26/22 TIME: 11:01 Subjective Feels better. Patient undergoing dialysis. Vitals Vital Signs Date Time Temp Pulse Resp B/P (MAP) Pulse Ox O2 Delivery O2 Flow Rate FiO2 01/26/22 08:00 Nasal Cannula 2.0 01/26/22 07:46 98 01/26/22 07:00 97.4 65 20 137/71 (93) 97.4 ROS: No Chest Pain, No Increase Cough General: Alert, No acute distress Lungs: Other (Decreased breath sounds at the bases.) Cardiovascular: S1 Abdomen: Soft Neuro Exam: Alert Extremities: Other (2+ pitting edema.) Labs Laboratory Tests Test 01/25/22 06:45 01/26/22 04:00 White Blood Count 8.2 x10^3/uL (4.0-11.0) 9.8 x10^3/uL (4.0-11.0) Red Blood Count 3.12 x10^6/uL (4.30-5.70) 3.19 x10^6/uL (4.30-5.70) Hemoglobin 9.5 g/dL (13.0-17.5) 9.6 g/dL (13.0-17.5) Hematocrit 28.2 % (39.0-53.0) 29.1 % (39.0-53.0) Mean Corpuscular Volume 91 fL (79-100) 91 fL (79-100) Mean Corpuscular Hemoglobin 31 pg (25-35) 30 pg (25-35) Mean Corpuscular Hemoglobin Concent 34 g/dL (31-37) 33 g/dL (31-37) Red Cell Distribution Width 14.8 % (11.5-14.5) 14.7 % (11.5-14.5) Platelet Count 174 x10^3/uL (140-400) 188 x10^3/uL (140-400) Neutrophils (%) (Auto) 77 % (31-73) 80 % (31-73) Lymphocytes (%) (Auto) 16 % (24-48) 15 % (24-48) Monocytes (%) (Auto) 7 % (0-9) 5 % (0-9) Eosinophils (%) (Auto) 0 % (0-3) 0 % (0-3) Basophils (%) (Auto) 0 % (0-3) 0 % (0-3) Neutrophils # (Auto) 6.3 x10^3/uL (1.8-7.7) 7.9 x10^3/uL (1.8-7.7) Lymphocytes # (Auto) 1.3 x10^3/uL (1.0-4.8) 1.4 x10^3/uL (1.0-4.8) Monocytes # (Auto) 0.5 x10^3/uL (0.0-1.1) 0.5 x10^3/uL (0.0-1.1) Eosinophils # (Auto) 0.0 x10^3/uL (0.0-0.7) 0.0 x10^3/uL (0.0-0.7) Basophils # (Auto) 0.0 x10^3/uL (0.0-0.2) 0.0 x10^3/uL (0.0-0.2) Sodium Level 138 mmol/L (136-145) 139 mmol/L (136-145) Potassium Level 4.5 mmol/L (3.5-5.1) 4.8 mmol/L (3.5-5.1) Chloride Level 103 mmol/L (98-107) 105 mmol/L (98-107) Carbon Dioxide Level 31 mmol/L (21-32) 30 mmol/L (21-32) Anion Gap 4 (6-14) 4 (6-14) Blood Urea Nitrogen 52 mg/dL (8-26) 46 mg/dL (8-26) Creatinine 2.2 mg/dL (0.7-1.3) 1.9 mg/dL (0.7-1.3) Estimated GFR (Cockcroft-Gault) 28.9 34.2 Glucose Level 91 mg/dL (70-99) 109 mg/dL (70-99) Calcium Level 8.0 mg/dL (8.5-10.1) 8.2 mg/dL (8.5-10.1) Laboratory Tests Test 01/26/22 04:00 White Blood Count 9.8 x10^3/uL (4.0-11.0) Red Blood Count 3.19 x10^6/uL (4.30-5.70) Hemoglobin 9.6 g/dL (13.0-17.5) Hematocrit 29.1 % (39.0-53.0) Mean Corpuscular Volume 91 fL (79-100) Mean Corpuscular Hemoglobin 30 pg (25-35) Mean Corpuscular Hemoglobin Concent 33 g/dL (31-37) Red Cell Distribution Width 14.7 % (11.5-14.5) Platelet Count 188 x10^3/uL (140-400) Neutrophils (%) (Auto) 80 % (31-73) Lymphocytes (%) (Auto) 15 % (24-48) Monocytes (%) (Auto) 5 % (0-9) Eosinophils (%) (Auto) 0 % (0-3) Basophils (%) (Auto) 0 % (0-3) Neutrophils # (Auto) 7.9 x10^3/uL (1.8-7.7) Lymphocytes # (Auto) 1.4 x10^3/uL (1.0-4.8) Monocytes # (Auto) 0.5 x10^3/uL (0.0-1.1) Eosinophils # (Auto) 0.0 x10^3/uL (0.0-0.7) Basophils # (Auto) 0.0 x10^3/uL (0.0-0.2) Sodium Level 139 mmol/L (136-145) Potassium Level 4.8 mmol/L (3.5-5.1) Chloride Level 105 mmol/L (98-107) Carbon Dioxide Level 30 mmol/L (21-32) Anion Gap 4 (6-14) Blood Urea Nitrogen 46 mg/dL (8-26) Creatinine 1.9 mg/dL (0.7-1.3) Estimated GFR (Cockcroft-Gault) 34.2 Glucose Level 109 mg/dL (70-99) Calcium Level 8.2 mg/dL (8.5-10.1) Medications Active Scripts Medications Dose Route/Sig Max Daily Dose Days Date Category Albuterol Sulfate Neb Soln (Albuterol Sulfate) 2.5 Mg/3 Ml Vial.neb 1 Vial NEB QID PRN 01/20/22 Reported Metoprolol Succinate ( Xl ) (Metoprolol Succinate) 25 Mg Tab.er.24h 2 Tab PO DAILY 01/20/22 Reported Anoro Ellipta 62.5-25 Mcg Inh (Umeclidinium Brm/Vilanterol Tr) 1 Each Disk.w.dev 1 Puff INH DAILY 01/20/22 Reported Eliquis (Apixaban) 5 Mg Tablet 1 Tab PO BID 01/20/22 Reported Rosuvastatin Calcium 40 Mg Tablet 1 Tab PO DAILY 01/20/22 Reported Amlodipine Besylate 5 Mg Tablet 1 Tab PO DAILY 01/20/22 Reported Lisinopril 20 Mg Tablet 1 Tab PO DAILY 01/20/22 Reported Potassium Chloride 20 Meq Tablet.er 1 Tab PO DAILY 01/20/22 Reported Furosemide 40 Mg Tablet 1 Tab PO DAILY 01/20/22 Reported No Known Medications Prior To Admisstion (Info) Each 1 Each 05/13/18 Reported Impression . 1. Acute on chronic hypoxemic respiratory failure, multifactorial. 2. Acute exacerbation of chronic obstructive pulmonary disease. Compensated. 3. Abnormal x-ray, possible pneumonia. 4. Acute on chronic congestive heart failure. 5. Chronic kidney disease. Now on dialysis. 6. Coronary artery disease with previous coronary artery bypass grafting. 7. Chronic atrial fibrillation. 8. History of aortic stenosis. Plan . 1. Patient now on oral prednisone and oral antibiotic. Taper the steroids. 2. Now on dialysis. 3. Nebulized treatments. 4. Oxygen supplementation. 5. Monitor BUN and creatinine. 6. Patient's older CT chest from 2018 was reviewed and compared with the recent images. Patient has chronic pleural thickening with associated atelectasis. No intervention needed at present. 7. Patient is on home oxygen at 2.5 L. Currently at 3 L. Close to baseline. Patient can increase oxygen to 3.5 L with activity. 8. Discharge planning per PCP. Okay pulmonary standpoint KACEY SAMPSON MD January 26, 2022 11:02
[2022-01-26] MEDS: guaiFENesin DM 600/30MG 1 TAB TAB.ER.12H PO SCH ×2 (12:28→21:58)
[2022-01-26] MEDS: LACTOBACILLUS RHAMNOSUS GG 1 CAPSULE. PO SCH ×2 (12:28→21:57)
[2022-01-26] MEDS: METOPROLOL SUCC 24HR ER 50 MG TAB.ER.24H. PO SCH (12:29)
[2022-01-26] MEDS: APIXABAN 5 MG TABLET. PO SCH ×2 (12:31→21:57)
[2022-01-26] MEDS: predniSONE 20 MG TABLET PO SCH (12:36)
[2022-01-26] MEDS: CEFDINIR 300 MG CAPSULE PO SCH ×2 (12:36→21:57)
--- NOTE | 2022-01-26 14:35 | NUR ---
SS following up with discharge planning. SS reviewed pt chart and discussed with pt RN. Pt is currently requiring oxygen at two liters nasal canula. COVID19 negative. Pt has home oxygen. Nephrology monitoring for renal recovery. PT/OT recommended alf unit. Pt currently declining alf unit. Pt reported that he already goes to [facility] at [facility] for outpatient services. SS will continue to follow for discharge planning.
[2022-01-26 14:57] VITALS: BP 106/64
--- NOTE | 2022-01-26 14:59 | PDOC ---
[employer] PROGRESS NOTE Date of Service DOS: DATE: 01/26/22 TIME: 14:43 Chief Complaint Chief Complaint Community-acquired pneumonia, possible gram-negative or possible gram-positive organism Acute on chronic respiratory failure with hypoxia Acute COPD exacerbation Acute CHF exacerbation CKD 3b Elevated BNP and likely CHF exacerbation Degenerative joint disease of left hip Plan: Patient received Rocephin and Lasix in the ED We will continue treatment with Rocephin IV and doxycycline IV Solu-Medrol every 12 house. Scheduled DuoNeb and consultation to pulmonology ECHO, cards consult Daily lasix Will provide gentle hydration and follow renal function, nephro consult for ckd Pain management for DJD left hip Resume home medications FEN - Cardiac diet PPX - Eliquis FULL CODE/patient names his daughter (Christine Jacobo) as surrogate decision- maker Dispo - inpatient for above History of Present Illness History of Present Illness 01/26/2022 No acute events overnight. Patient seen examined during dialysis and tolerating well. Creatinine improved to 1.8 today. Nephrology reassessing daily for renal recovery. Anticipate discharge soon with or without dialysis. Patient's chart, labs, images were reviewed and discussed with RN 01/25: Afebrile, breathing on 3 L nasal cannula. Creatinine 2.2, EGFR 28.9, consistent with CKD 4. Renal function improving with dialysis; patient unsure at this time if he is wanting long-term HD or not. I will defer to nephrology in this regard. 01/24: Patient seen in dialysis. He is breathing comfortably on room air. His leukocytosis resolved, procalcitonin <0.10; no oral cefdinir. He has been initiated on HD. Discussed with patient, hoping this is not a permanent fixture in his kidney function will improve. 01/23 Evaluated examined at bedside. Informed about labs worsening. Renal ultrasound pending. Consult recommendations reviewed. In terms of breathing he says it is improving. He may need dialysis if kidney function continues to worsen 01/22 Patient evaluated examined at bedside up in chair. Said her breathing little bit better and swelling in lower extremities improving. Work with therapy. Recommendations from consultants reviewed. Continue current otherwise. Discussed with bedside RN. 01/21 Patient evaluated at bedside. He was sitting up eating lunch. Intermittently coughing harshly. Continuing IV antibiotics and Solu-Medrol. Daily Lasix. Patient said at home over the past week or so he has been unable to complete most of his tasks due to shortness of breath. Will add on therapy. [employer] recommendations reviewed. Continue current otherwise. Discussed with bedside RN. Vitals/I&O Vitals/I&O: Vital Signs Date Time Temp Pulse Resp B/P (MAP) Pulse Ox O2 Delivery O2 Flow Rate FiO2 01/26/22 12:29 65 137/71 01/26/22 08:00 Nasal Cannula 2.0 01/26/22 07:46 98 01/26/22 07:00 97.4 20 97.4 I & O 01/25/22 01/25/22 01/26/22 15:00 23:00 07:00 Intake Total 480 ml 240 ml 110 ml Output Total 300 ml 450 ml Balance 180 ml 240 ml -340 ml Physical Exam General: mild distress Heart: Regular rate Lungs: Other (Decreased breath sounds at the bases.) Abdomen: Normal bowel sounds Extremities: No cyanosis, Other (2-3+ bilateral LE pitting edema) Skin: No breakdown, No significant lesion Labs Labs: Laboratory Tests Test 01/26/22 04:00 White Blood Count 9.8 x10^3/uL (4.0-11.0) Red Blood Count 3.19 x10^6/uL (4.30-5.70) Hemoglobin 9.6 g/dL (13.0-17.5) Hematocrit 29.1 % (39.0-53.0) Mean Corpuscular Volume 91 fL (79-100) Mean Corpuscular Hemoglobin 30 pg (25-35) Mean Corpuscular Hemoglobin Concent 33 g/dL (31-37) Red Cell Distribution Width 14.7 % (11.5-14.5) Platelet Count 188 x10^3/uL (140-400) Neutrophils (%) (Auto) 80 % (31-73) Lymphocytes (%) (Auto) 15 % (24-48) Monocytes (%) (Auto) 5 % (0-9) Eosinophils (%) (Auto) 0 % (0-3) Basophils (%) (Auto) 0 % (0-3) Neutrophils # (Auto) 7.9 x10^3/uL (1.8-7.7) Lymphocytes # (Auto) 1.4 x10^3/uL (1.0-4.8) Monocytes # (Auto) 0.5 x10^3/uL (0.0-1.1) Eosinophils # (Auto) 0.0 x10^3/uL (0.0-0.7) Basophils # (Auto) 0.0 x10^3/uL (0.0-0.2) Sodium Level 139 mmol/L (136-145) Potassium Level 4.8 mmol/L (3.5-5.1) Chloride Level 105 mmol/L (98-107) Carbon Dioxide Level 30 mmol/L (21-32) Anion Gap 4 (6-14) Blood Urea Nitrogen 46 mg/dL (8-26) Creatinine 1.9 mg/dL (0.7-1.3) Estimated GFR (Cockcroft-Gault) 34.2 Glucose Level 109 mg/dL (70-99) Calcium Level 8.2 mg/dL (8.5-10.1) Assessment and Plan Assessmemt and Plan Problems Medical Problems: (1) Bilateral pneumonia Status: Acute (2) CHF exacerbation Status: Acute (3) Chronic renal failure Status: Acute (4) Pleural effusion Status: Acute Comment Review of Relevant I have reviewed the following items earl (where applicable) has been applied. Justifications for Admission Other Justification CHIQUITA CONNELLY MD January 26, 2022 14:59
--- NOTE | 2022-01-26 16:02 | PDOC ---
PROGRESS NOTES Date of Service DATE: 01/26/22 TIME: 16:00 Subjective Subjective Patient seen and examined Objective Objective Vital Signs Date Time Temp Pulse Resp B/P (MAP) Pulse Ox O2 Delivery O2 Flow Rate FiO2 01/26/22 15:44 97 Nasal Cannula 2.0 01/26/22 14:57 98.0 71 16 106/64 (78) 98.0 Intake and Output 01/26/22 07:00 Intake Total 830 ml Output Total 750 ml Balance 80 ml Intake Oral 830 ml Output Urine Total 750 ml Physical Exam Abdomen: Normal bowel sounds Heart: Regular rate General: No acute distress Lungs: Other (Slightly decreased breath sounds) Assessment Assessment Problems Medical Problems: (1) Bilateral pneumonia Status: Acute (2) CHF exacerbation Status: Acute (3) Chronic renal failure Status: Acute (4) Pleural effusion Status: Acute Acute on chronic respiratory failure with AECOPD, CHF and possible PNA. The patient feels significantly better today. We will continue present treatment. Acute on chronic diastolic CHF: EF and WM nml per TTE. 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 [employer]. Recent interrogation 01/08/2022 revealed no significant arrhythmias, nml device with 11 yrs battery life. Chronic RBBB PAFIB: presently V paced with AFIB rate controlled. on home eliquis HTN: controlled HLP FILEMON on CKD: Seen during his dialysis today and he is feeling significantly better. Continue as per the renal service. Comment Review of Relevant I have reviewed the following items earl (where applicable) has been applied. Labs Laboratory Tests Test 01/25/22 06:45 01/26/22 04:00 White Blood Count 8.2 x10^3/uL (4.0-11.0) 9.8 x10^3/uL (4.0-11.0) Red Blood Count 3.12 x10^6/uL (4.30-5.70) 3.19 x10^6/uL (4.30-5.70) Hemoglobin 9.5 g/dL (13.0-17.5) 9.6 g/dL (13.0-17.5) Hematocrit 28.2 % (39.0-53.0) 29.1 % (39.0-53.0) Mean Corpuscular Volume 91 fL (79-100) 91 fL (79-100) Mean Corpuscular Hemoglobin 31 pg (25-35) 30 pg (25-35) Mean Corpuscular Hemoglobin Concent 34 g/dL (31-37) 33 g/dL (31-37) Red Cell Distribution Width 14.8 % (11.5-14.5) 14.7 % (11.5-14.5) Platelet Count 174 x10^3/uL (140-400) 188 x10^3/uL (140-400) Neutrophils (%) (Auto) 77 % (31-73) 80 % (31-73) Lymphocytes (%) (Auto) 16 % (24-48) 15 % (24-48) Monocytes (%) (Auto) 7 % (0-9) 5 % (0-9) Eosinophils (%) (Auto) 0 % (0-3) 0 % (0-3) Basophils (%) (Auto) 0 % (0-3) 0 % (0-3) Neutrophils # (Auto) 6.3 x10^3/uL (1.8-7.7) 7.9 x10^3/uL (1.8-7.7) Lymphocytes # (Auto) 1.3 x10^3/uL (1.0-4.8) 1.4 x10^3/uL (1.0-4.8) Monocytes # (Auto) 0.5 x10^3/uL (0.0-1.1) 0.5 x10^3/uL (0.0-1.1) Eosinophils # (Auto) 0.0 x10^3/uL (0.0-0.7) 0.0 x10^3/uL (0.0-0.7) Basophils # (Auto) 0.0 x10^3/uL (0.0-0.2) 0.0 x10^3/uL (0.0-0.2) Sodium Level 138 mmol/L (136-145) 139 mmol/L (136-145) Potassium Level 4.5 mmol/L (3.5-5.1) 4.8 mmol/L (3.5-5.1) Chloride Level 103 mmol/L (98-107) 105 mmol/L (98-107) Carbon Dioxide Level 31 mmol/L (21-32) 30 mmol/L (21-32) Anion Gap 4 (6-14) 4 (6-14) Blood Urea Nitrogen 52 mg/dL (8-26) 46 mg/dL (8-26) Creatinine 2.2 mg/dL (0.7-1.3) 1.9 mg/dL (0.7-1.3) Estimated GFR (Cockcroft-Gault) 28.9 34.2 Glucose Level 91 mg/dL (70-99) 109 mg/dL (70-99) Calcium Level 8.0 mg/dL (8.5-10.1) 8.2 mg/dL (8.5-10.1) Laboratory Tests Test 01/26/22 04:00 White Blood Count 9.8 x10^3/uL (4.0-11.0) Red Blood Count 3.19 x10^6/uL (4.30-5.70) Hemoglobin 9.6 g/dL (13.0-17.5) Hematocrit 29.1 % (39.0-53.0) Mean Corpuscular Volume 91 fL (79-100) Mean Corpuscular Hemoglobin 30 pg (25-35) Mean Corpuscular Hemoglobin Concent 33 g/dL (31-37) Red Cell Distribution Width 14.7 % (11.5-14.5) Platelet Count 188 x10^3/uL (140-400) Neutrophils (%) (Auto) 80 % (31-73) Lymphocytes (%) (Auto) 15 % (24-48) Monocytes (%) (Auto) 5 % (0-9) Eosinophils (%) (Auto) 0 % (0-3) Basophils (%) (Auto) 0 % (0-3) Neutrophils # (Auto) 7.9 x10^3/uL (1.8-7.7) Lymphocytes # (Auto) 1.4 x10^3/uL (1.0-4.8) Monocytes # (Auto) 0.5 x10^3/uL (0.0-1.1) Eosinophils # (Auto) 0.0 x10^3/uL (0.0-0.7) Basophils # (Auto) 0.0 x10^3/uL (0.0-0.2) Sodium Level 139 mmol/L (136-145) Potassium Level 4.8 mmol/L (3.5-5.1) Chloride Level 105 mmol/L (98-107) Carbon Dioxide Level 30 mmol/L (21-32) Anion Gap 4 (6-14) Blood Urea Nitrogen 46 mg/dL (8-26) Creatinine 1.9 mg/dL (0.7-1.3) Estimated GFR (Cockcroft-Gault) 34.2 Glucose Level 109 mg/dL (70-99) Calcium Level 8.2 mg/dL (8.5-10.1) Microbiology 01/20/22 Blood Culture - Final, Complete NO GROWTH AFTER 5 DAYS Medications Current Medications Morphine Sulfate (Morphine Sulfate) 2 mg PRN Q15MIN PRN IV/SQ PAIN GREATER THAN 3/10 Last administered on 01/20/22at 15:13; Start 01/20/22 at 13:45; Stop 01/21/22 at 12:23; Status DC Furosemide (Lasix) 40 mg DAILY IVP Last administered on 01/20/22at 15:24; Start 01/21/22 at 09:00; Stop 01/21/22 at 03:48; Status DC Ceftriaxone Sodium (Rocephin) 1 gm 1X ONCE IVP Last administered on 01/20/22at 15:23; Start 01/20/22 at 15:15; Stop 01/20/22 at 15:16; Status DC Ondansetron HCl (Zofran) 4 mg PRN Q8HRS PRN IVP NAUSEA/VOMITING; Start 01/20/22 at 15:30; Stop 01/21/22 at 12:23; Status DC Fentanyl Citrate (Fentanyl 2ml Vial) 50 mcg PRN Q1HR PRN IVP PAIN; Start 01/20/22 at 15:30; Stop 01/21/22 at 15:29; Status DC Acetaminophen (Tylenol) 650 mg PRN Q4HRS PRN PO FEVER > 100.3'F; Start 01/20/22 at 15:30; Stop 01/21/22 at 12:23; Status DC Methylprednisolone Sodium Succinate (SOLU-Medrol 40MG VIAL) 40 mg PRN Q12HRS IV ; Start 01/20/22 at 16:15; Stop 01/21/22 at 09:59; Status DC Ceftriaxone Sodium (Rocephin) 1 gm DAILY IVP Last administered on 01/23/22at 08:02; Start 01/21/22 at 09:00; Stop 01/23/22 at 10:05; Status DC Doxycycline Hyclate 100 mg/ Dextrose 100 ml @ 50 mls/hr BID IV Last administered on 01/23/22at 08:02; Start 01/20/22 at 21:00; Stop 01/23/22 at 10:05; Status DC Albuterol/ Ipratropium (Duoneb) 3 ml RTQID NEB Last administered on 01/26/22at 15:43; Start 01/20/22 at 20:00 Ondansetron HCl (Zofran) 4 mg PRN Q6HRS PRN IVP NAUSEA/VOMITING; Start 01/20/22 at 16:15 Al Hydroxide/Mg Hydroxide (Mylanta Plus Xs) 30 ml PRN Q3HRS PRN PO HEARTBURN / GAS; Start 01/20/22 at 16:15 Calcium Carbonate/ Glycine (Tums) 500 mg PRN Q3HRS PRN PO UPSET STOMACH; Start 01/20/22 at 16:15 Zolpidem Tartrate (Ambien) 5 mg PRN QHS PRN PO INSOMNIA, MAY REPEAT IN 1HR Last administered on 01/25/22at 23:46; Start 01/20/22 at 16:15 Morphine Sulfate (Morphine Sulfate) 2 mg PRN Q1HR PRN IV PAIN Last administered on 01/21/22at 03:15; Start 01/20/22 at 16:15 Acetaminophen/ Hydrocodone Bitart (Lortab 5/325) 1 tab PRN Q4HRS PRN PO MILD PAIN 1-3 Last administered on 01/26/22at 08:39; Start 01/20/22 at 16:15 Acetaminophen/ Hydrocodone Bitart (Lortab 5/325) 2 tab PRN Q4HRS PRN PO MODERATE PAIN, SEVERE PAIN Last administered on 01/22/22 22:24; Start 01/20/22 at 16:15 Oxycodone/ Acetaminophen (Percocet 5/325) 1 tab PRN Q4HRS PRN PO MILD PAIN, 2ND CHOICE Last administered on 01/25/22at 22:52; Start 01/20/22 at 16:15 Acetaminophen (Tylenol) 650 mg PRN Q6HRS PRN PO Headaches, Temp > 101.5F; Start 01/20/22 at 16:15 Magnesium Hydroxide (Milk Of Magnesia) 2,400 mg PRN Q12HR PRN PO CONSTIPATION; Start 01/20/22 at 16:15 Guaifenesin/ Codeine Phosphate (Robitussin Ac) 5 ml PRN Q6HRS PRN PO COUGH (2nd Choice) Last administered on 01/25/22 21:22; Start 01/20/22 at 16:30 Benzonatate (Tessalon Perle) 100 mg TID PRN PO COUGH; Start 01/20/22 at 16:30; Stop 01/25/22 at 15:46; Status DC Guaifenesin (MUCINEX ER with DM) 1 tab BID PO Last administered on 01/26/22 12:28; Start 01/20/22 at 21:00 Amlodipine Besylate (Norvasc) 5 mg DAILY PO Last administered on 01/26/22 12:29; Start 01/21/22 at 09:00 Apixaban (Eliquis) 2.5 mg BID PO Last administered on 01/26/22 12:31; Start 01/20/22 at 21:00 Lisinopril (Prinivil) 20 mg DAILY PO Last administered on 01/22/22 09:17; Start 01/21/22 at 09:00; Stop 01/22/22 at 12:11; Status DC Metoprolol Succinate (Toprol Xl) 50 mg DAILY PO Last administered on 01/26/22 12:29; Start 01/21/22 at 09:00 Atorvastatin Calcium (Lipitor) 80 mg DAILY PO Last administered on 01/26/22 09:00; Start 01/21/22 at 09:00 Non-Formulary Medication (Umeclidinium Brm/Vilanterol Tr (Anoro Ellipta 62.5-25 Mcg Inh)) 1 puff DAILY INH ; Start 01/21/22 at 09:00; Stop 01/20/22 at 19:34; Status DC Furosemide (Lasix) 20 mg DAILY IVP Last administered on 01/22/22 09:16; Start 01/21/22 at 09:00; Stop 01/22/22 at 12:11; Status DC Methylprednisolone Sodium Succinate (SOLU-Medrol 40MG VIAL) 40 mg Q12HR IV Last administered on 01/23/22at 07:59; Start 01/21/22 at 10:00; Stop 01/23/22 at 10:05; Status DC Budesonide (Pulmicort) 0.5 mg RTBID NEB Last administered on 01/26/22at 07:45; Start 01/21/22 at 13:00 Furosemide (Lasix) 40 mg STK-MED ONCE .ROUTE ; Start 01/20/22 at 15:14; Stop 01/22/22 at 09:27; Status DC Sodium Chloride 1,000 ml @ 75 mls/hr 1X ONCE IV Last administered on 01/22/22at 12:35; Start 01/22/22 at 12:15; Stop 01/23/22 at 01:34; Status DC Doxycycline Hyclate (Vibra-Tab) 100 mg BID PO ; Start 01/23/22 at 21:00; Stop 01/23/22 at 10:05; Status DC Cefdinir (Omnicef) 300 mg BID PO Last administered on 01/26/22at 12:36; Start 01/24/22 at 09:00 Prednisone (Prednisone) 40 mg DAILY PO Last administered on 01/26/22at 12:36; Start 01/24/22 at 09:00 Sodium Chloride 1,000 ml @ 60 mls/hr [id number] IV Last administered on 01/25/22at 09:23; Start 01/23/22 at 13:30; Stop 01/26/22 at 09:21; Status DC Lidocaine HCl (Buffered Lidocaine 1%) 6 ml 1X ONCE INJ Last administered on 01/23/22at 14:30; Start 01/23/22 at 14:15; Stop 01/23/22 at 14:16; Status DC Sodium Chloride 1,000 ml @ 1,000 mls/hr Q1H PRN IV hypotension; Start 01/24/22 at 11:15; Stop 01/24/22 at 17:14; Status DC Sodium Chloride 1,000 ml @ 400 mls/hr Q2H30M PRN IV PATENCY; Start 01/24/22 at 11:15; Stop 01/24/22 at 23:14; Status DC Info (PHARMACY MONITORING -- do not chart) 1 each PRN DAILY PRN MC SEE COMMENTS; Start 01/24/22 at 11:15 Info (PHARMACY MONITORING -- do not chart) 1 each PRN DAILY PRN MC SEE CO MMENTS; Start 01/24/22 at 11:15; Status UNV Info (Anti-Coagulation Monitoring By Pharmacy) 1 each PRN DAILY PRN MC PER PROTOCOL Last administered on 01/25/22at 13:35; Start 01/24/22 at 15:00 Lidocaine HCl (Buffered Lidocaine 1%) 3 ml STK-MED ONCE .ROUTE ; Start 01/23/22 at 14:02; Stop 01/24/22 at 14:55; Status DC Lactobacillus Rhamnosus (Culturelle) 1 cap BID PO Last administered on 01/26/22at 12:28; Start 01/24/22 at 21:00 Benzonatate (Tessalon Perle) 100 mg PRN TID PRN PO COUGH (1st Choice); Start 01/25/22 at 16:00 Sodium Chloride 1,000 ml @ 1,000 mls/hr Q1H PRN IV hypotension; Start 01/26/22 at 07:30; Stop 01/26/22 at 13:29; Status DC Sodium Chloride 1,000 ml @ 400 mls/hr Q2H30M PRN IV PATENCY; Start 01/26/22 at 07:30; Stop 01/26/22 at 19:29 Info (PHARMACY MONITORING -- do not chart) 1 each PRN DAILY PRN MC SEE COMMENTS; Start 01/26/22 at 07:30 Active Scripts Active Reported Albuterol Sulfate Neb Soln (Albuterol Sulfate) 2.5 Mg/3 Ml Vial.neb 1 Vial NEB QID PRN Metoprolol Succinate ( Xl ) (Metoprolol Succinate) 25 Mg Tab.er.24h 2 Tab PO DAILY Anoro Ellipta 62.5-25 Mcg Inh (Umeclidinium Brm/Vilanterol Tr) 1 Each Disk.w.dev 1 Puff INH DAILY Eliquis (Apixaban) 5 Mg Tablet 1 Tab PO BID Rosuvastatin Calcium 40 Mg Tablet 1 Tab PO DAILY Amlodipine Besylate 5 Mg Tablet 1 Tab PO DAILY Lisinopril 20 Mg Tablet 1 Tab PO DAILY Potassium Chloride 20 Meq Tablet.er 1 Tab PO DAILY Furosemide 40 Mg Tablet 1 Tab PO DAILY No Known Medications Prior To Admisstion (Info) Each 1 Each MC Vitals/I & O Vital Sign - Last 24 Hours 01/25/22 01/25/22 01/25/22 01/25/22 18:10 19:42 20:00 22:52 Temp 98.6 98.6 Pulse 81 Resp 16 16 B/P (MAP) 123/62 (82) Pulse Ox 97 95 O2 Delivery Nasal Cannula Nasal Cannula Nasal Cannula Room Air O2 Flow Rate 2.0 3.0 2.0 2.0 01/25/22 01/25/22 01/26/22 01/26/22 23:22 23:45 03:43 07:00 Temp 98.0 98.1 97.4 98.0 98.1 97.4 Pulse 70 70 65 Resp 18 16 18 20 B/P (MAP) 121/57 (78) 116/61 (79) 137/71 (93) Pulse Ox 95 92 92 94 O2 Delivery Nasal Cannula Nasal Cannula Nasal Cannula Nasal Cannula O2 Flow Rate 2.0 3.0 3.0 3.0 01/26/22 01/26/22 01/26/22 01/26/22 07:46 08:00 12:29 12:29 Pulse 65 65 B/P (MAP) 137/71 137/71 Pulse Ox 98 O2 Delivery Nasal Cannula Nasal Cannula O2 Flow Rate 2.0 2.0 01/26/22 01/26/22 14:57 15:44 Temp 98.0 98.0 Pulse 71 Resp 16 B/P (MAP) 106/64 (78) Pulse Ox 90 97 O2 Delivery Nasal Cannula Nasal Cannula O2 Flow Rate 3.0 2.0 Intake and Output 01/25/22 01/25/22 01/26/22 15:00 23:00 07:00 Intake Total 480 ml 240 ml 110 ml Output Total 300 ml 450 ml Balance 180 ml 240 ml -340 ml Justifications for Admission Other Justification BLAS BERGERON MD January 26, 2022 16:02
[2022-01-26 19:00] VITALS: BP 112/77
[2022-01-26] MEDS: ZOLPIDEM 5 MG TABLET. PO PRN (21:57)
[2022-01-26 23:00] VITALS: BP 115/57
[2022-01-27 02:52] LABS: BASO # 0.1 x10^3/uL (0.0-0.2); BASO % 1 % (0-3); EOS % 0 % (0-3); HEMATOCRIT 34.3 % (39.0-53.0); LYMPH # 4.3 x10^3/uL (1.0-4.8); LYMPH % 28 % (24-48); MEAN CORPUSCULAR HEMOGLOBIN 30 pg (25-35); MEAN CORPUSCULAR HGB CONC 32 g/dL (31-37); MEAN CORPUSCULAR VOLUME 93 fL (79-100); MONO # 0.5 x10^3/uL (0.0-1.1); MONO % 3 % (0-9); NEUT # 10.6 x10^3/uL (1.8-7.7); NEUT % 68 % (31-73); PLATELET COUNT 216 x10^3/uL (140-400); RED BLOOD COUNT 3.68 x10^6/uL (4.30-5.70); RED CELL DISTRIBUTION WIDTH 14.7 % (11.5-14.5); WHITE BLOOD COUNT 15.5 x10^3/uL (4.0-11.0)
[2022-01-27] MEDS ORDERED: CALCIUM CHLORIDE 1,000 MG/10 ML DISP.SYRIN ONE (03:00)
[2022-01-27] MEDS ORDERED: EPINEPHrine SYRINGE 1 MG/10 ML SYRINGE. ONE (03:00)
[2022-01-27 03:05] LABS: CALCIUM 9.1 mg/dL (8.5-10.1); CREATININE 1.9 mg/dL (0.7-1.3); GFR 34.2; POTASSIUM 4.3 mmol/L (3.5-5.1)
[2022-01-27 03:30] VITALS: BP 105/45
--- NOTE | 2022-01-27 03:43 | ED.ADGEN ---
Past Medical History Past Surgical History: Coronary Bypass Surgery, Pacemaker Smoking Status: Former Smoker Alcohol Use: Occasionally Physician Documentation Physician Documentation I was called to the fifth floor for a CODE BLUE. I am not sure exactly what happened but please review nursing notes for further details. From what I understood patient was walking out of the bathroom and may have pulled his dialysis catheter out and then passed out and was laying on the floor. I walked into the room and CPR was being done with him laying on the floor and there was multiple areas of blood splattered on the floor as well presumably from his dialysis catheter. Patient did not have a pulse on my initial pulse check but it appeared that he was in a wide-complex tachycardia consistent with ventricular tachycardia. Given he was pulseless I told the nurse to continue chest compressions while charging to defibrillate him and after the defibrillator was charged he was shocked and then another round of immediate CPR was started and an IV was able to be obtained and he was given epinephrine and calcium through a right AC line. The line may have gone bad before or after the calcium was given. The patient regained pulses after epinephrine and defibrillation and calcium were all given. Patient was then lifted from the ground up into a bed. There was multiple attempts at peripheral IV access that were unsuccessful. I attempted to put a central line in both of his femoral sites but was unsuccessful largely due to to patient thrashing around in the bed and would not hold his legs still. His oxygen saturation was in the upper 90s and he was breathing on his own and did not appear to need emergent intubation so the plan is to have him moved to the ICU and have the DRAG CAR RACER attempt to get per ipheral access. I told the warehouse team member Bernie that I could go up and put in a central line in the ICU under ultrasound guidance and then intubate him if necessary. She said given the patient is stabilized at this time they do not need me to go to the ICU. She understood that I am available if they need me. ROSIE SARMIENTO DO January 27, 2022 03:43
[2022-01-27] MEDS ORDERED: DEXMEDETOMIDINE 400 MCG in IV NORMAL SALINE 100ML 96 ML IV PRN (04:00)
[2022-01-27] MEDS ORDERED: IV NORMAL SALINE 500ML BAG 500 ML IV PRN (04:00)
[2022-01-27] MEDS ORDERED: ZIPRASIDONE IM 20 MG VIAL. IM ONE (04:00)
[2022-01-27] MEDS ORDERED: ATROPINE 0.5 MG/5 ML DISP.SYRINGE. IV PRN (04:00)
[2022-01-27] MEDS ORDERED: SUCCINYLCHOLINE 200 MG/10 ML VIAL. ONE ×2 (04:06→04:15)
[2022-01-27] MEDS ORDERED: ETOMIDATE 20 MG/10 ML VIAL. IV ONE ×2 (04:06→04:15)
[2022-01-27] MEDS ORDERED: PROPOFOL 100 ML IV ONE (04:07)
[2022-01-27] MEDS ORDERED: MIDAZOLAM HCL/PF 5 MG/5 ML VIAL. IVP PRN (04:15)
[2022-01-27] MEDS ORDERED: POLYVINYL ALCOHOL 1.4% OPHTH SOLUTION 15ML BOTTLE. OU PRN (04:15)
[2022-01-27] MEDS ORDERED: MIDAZOLAM 100mg/100ml NS BAG 100 ML IV PRN (04:15)
[2022-01-27] MEDS ORDERED: PROPOFOL 10 MG/ML (100ML) VIAL. IV ONE (04:15)
[2022-01-27] MEDS ORDERED: VECURONIUM BOLUS 10 MG VIAL. IV PRN (04:15)
[2022-01-27] MEDS ORDERED: PROPOFOL 100 ML IV PRN (04:15)
--- NOTE | 2022-01-27 04:23 | PDOC ---
Provider Note Date of Service: DATE: 01/27/22 TIME: 04:14 Provider Note Anesthesia note: Requested for IV placement on patient S/P code blue, awake but combative. #22 ga IV placed in right wrist, Pt had multiple attempts for IV placement during and post code. ABG results showed pH 7.03 on BiPap. Request for intubation by Dr. Husain. Pt easily intubated after sedation with 20mg Etomidate and 100mg Succiinylcholne. #7.5 OET placed using #3 Glidescope. BSBE, good color cjange on EtCO2 indicator. Tube secured at 23cm by respiratory therapy. Chest X-ray ordered. Justifications for Admission Other Justification LILA WYNNE CRNA January 27, 2022 04:23
[2022-01-27] MEDS ORDERED: NOREPINEPHRINE VIAL 8 MG in IV DEXTROSE 5% 250 ML IV PRN (05:00)
[2022-01-27 05:50] LABS: BASE EXCESS ABG -2 mmol/L (-3-3); HCO3 ABG 31 mmol/L (21-28); PO2 ABG 133 mmHg (65-108); SAT O2 ABG 97 % (92-99)
--- NOTE | 2022-01-27 06:04 | NUR ---
Nursing Note: 0350- Received patient from 5th floor after patient code, see code sheet. Patient confused and incoherent upon arrival to ICU. No IV lines present, RN and [employer] BROOM CLIPPER trying to get access. ABG drawn and results called to Dr. Husain, also spoke with Dr. Luna regarding code and status of patient currently. 0415- Pt intubated by BRUSH AND BROOM CLIPPER after IV access obtained. Pt tolerated well, vitals stable. Attempted to get ahold of multiple family contacts, messages left on voicemail. 0448- Pt went into pulseless VTACH, CPR began, see code sheet. Levophed started, as well as IO access in right tibia after lost PIV access. 0521- Time of , able to get ahold of son, awaiting arrival to see patient.
--- NOTE | 2022-01-27 06:22 | ED.ADGEN ---
Past Medical History Past Surgical History: Coronary Bypass Surgery, Pacemaker Smoking Status: Former Smoker Alcohol Use: Occasionally Physician Documentation Physician Documentation Please see nurses notes for exact times but I was called back for the patient coding this time in the ICU after patient had obtained peripheral access from the EXPERT WITNESS and was intubated by the EXPERT WITNESS as well. Patient appeared to be in fine ventricular fibrillation and he was defibrillated and received additional epinephrine amiodarone calcium and bicarbonate and he regained pulses and appeared to be in a wide-complex sinus rhythm. The ER was full and an ambulance patient came inI was notified I needed to return to ED. An EKG was obtained that I was able to review later on that showed wide-complex with significant ST elevation in multiple leads. Dr. Walker has been consulted and Dr. Luna was notified of the situation as well. Patient had return of spontaneous circulation so I returned back to the emergency department recommended amiodarone drip and a norepinephrine drip given he is hypotensive. I was called back to the ICU again after patient started coding at 5:06 AM. He had multiple rounds of epinephrine and had continuous CPR and unfortunately on all pulse checks his rhythm was asystole. I spoke to Dr. Walker again and told him about the situation and inquired about terminating the resuscitation. He recommended consulting cardiology given the abnormal EKG. I spoke to Dr. Harley and he had no further recommendations given patient had been coded another 20 minutes and he is persistently in asystole he agreed that patient should not be coded any longer. ICU staff is contacting family. ROSIE SARMIENTO DO January 27, 2022 06:22
[2022-01-27 06:31] LABS: FIO2 ABG 100; PCO2 ABG 120 mmHg (35-46)
[2022-01-27] MEDS ORDERED: CHLORHEXIDINE 0.12% 15 ML MOUTHWASH. MM SCH (09:00)
--- NOTE | 2022-01-27 12:22 | EKG ---
[facility] [address] [place] [address] Test Date: 2022-01-27 Test Time: 03:38:14 Pat Name: CONRADO VELIZ Department: Room: 110 1 Gender: M Room Service Waiter: EK : 1940 Requested By: TANYA PITTS Order Number: [id number] Reading MD: Omari Carlson Measurements Intervals [place] Rate: 77 P: MT: QRS: -78 QRSD: 164 T: 75 QT: 406 QTc: 461 Interpretive Statements SINUS RHYTHM ATRIAL PREMATURE COMPLEXES ABNORMAL LEFT AXIS DEVIATION LEFT ANTERIOR FASCICULAR BLOCK RIGHT BUNDLE BRANCH BLOCK BIFASCICULAR BLOCK Electronically Signed On 01-28-2022 17:13:49 CDT by Omari Carlson
--- NOTE | 2022-01-27 12:23 | RAD ---
XR CHEST 1V Clinical Indication: Reason: ETT/OG PLACEMENT / Spl. Instructions: / History: Comparison: AP chest January 20, 2022. Findings: There is endotracheal tube, tip is difficult to visualize. Tip is approximately 7 cm superior to the lo. Enteric tube tip is in the stomach. There is left chest dual-chamber pacer. There are median sternotomy wires and CABG changes. There is mild cardiac enlargement. There are bilateral pulmonary o pacities, significantly worse than on the prior study. Large calcified granuloma right lung base. The re are small bilateral pleural effusions. No pneumothorax is seen. IMPRESSION: 1. Endotracheal tube tip is difficult to visualize but is approximately 7 cm superior to the lo. Enteric tube tip is in the stomach. 2. Bilateral pulmonary opacities are significantly worse compared to January 20. 3. Small bilateral pleural effusions or pleural thickening. Electronically signed by: Go Simpson MD (01/27/2022 5:36 AM) [facility]
== END 2022-01-27 05:21 | DRG 208 ==
LOC: ER 13:16 → 5 NORTH 15:15 → 1 WEST ICU 01-27 03:29
PROVIDERS: ADMIT Family Medicine; ATTEND Family Medicine
PROC: 05HY33Z Insertion of Infusion Device into Upper Vein, Percutaneous Approach (ICD-10-PCS; 2022-01-23)
PROC: 5A1D70Z Performance of Urinary Filtration, Intermittent, Less than 6 Hours Per Day (ICD-10-PCS; 2022-01-24)
PROC: 5A1D70Z Performance of Urinary Filtration, Intermittent, Less than 6 Hours Per Day (ICD-10-PCS; 2022-01-26)
PROC: 5A1935Z Respiratory Ventilation, Less than 24 Consecutive Hours (ICD-10-PCS; principal; 2022-01-27)
PROC: 0BH17EZ Insertion of Endotracheal Airway into Trachea, Via Natural or Artificial Opening (ICD-10-PCS; 2022-01-27)
PROC: 5A09357 Assistance with Respiratory Ventilation, Less than 24 Consecutive Hours, Continuous Positive Airway Pressure (ICD-10-PCS; 2022-01-27)
PROC: 5A12012 Performance of Cardiac Output, Single, Manual (ICD-10-PCS; 2022-01-27)
DX: J18.9 Pneumonia, unspecified organism (principal); J96.21 Acute and chronic respiratory failure with hypoxia; I50.33 Acute on chronic diastolic (congestive) heart failure; J44.1 Chronic obstructive pulmonary disease with (acute) exacerbation; N17.9 Acute kidney failure, unspecified; J91.8 Pleural effusion in other conditions classified elsewhere; I13.0 Hypertensive heart and chronic kidney disease with heart failure and stage 1 through stage 4 chronic kidney disease, or unspecified chronic kidney disease; I48.20 Chronic atrial fibrillation, unspecified; J44.0 Chronic obstructive pulmonary disease with (acute) lower respiratory infection; N18.4 Chronic kidney disease, stage 4 (severe); E78.5 Hyperlipidemia, unspecified; F17.210 Nicotine dependence, cigarettes, uncomplicated; I25.10 Atherosclerotic heart disease of native coronary artery without angina pectoris; I35.0 Nonrheumatic aortic (valve) stenosis; I44.30 Unspecified atrioventricular block; I45.10 Unspecified right bundle-branch block; I48.0 Paroxysmal atrial fibrillation; M16.0 Bilateral primary osteoarthritis of hip; Z79.01 Long term (current) use of anticoagulants; Z82.3 Family history of stroke; Z82.49 Family history of ischemic heart disease and other diseases of the circulatory system; Z86.74 Personal history of sudden cardiac arrest; Z95.0 Presence of cardiac pacemaker; Z95.1 Presence of aortocoronary bypass graft; Z95.5 Presence of coronary angioplasty implant and graft; D64.9 Anemia, unspecified; Z99.2 Dependence on renal dialysis; Z20.822 Contact with and (suspected) exposure to COVID-19; R31.29 Other microscopic hematuria
CPT/HCPCS: 36415; 36556; 36600; 71045; 73502; 76770; 76937; 77001; 80048; 80053; 80069; 81001; 82805; 82962; 83605; 83735; 83880; 84145; 84484; 85007; 85025; 86317; 86706; 87040; 87340; 87428; 93005; 93308; 94002; 94640; 94760; 96374; 96375; 96376; C1892; J0171; J0330; J0696; J1940; J2270; J2704; J2920; J3486; J3490; J7030; J7060; J7512; 97116-GP; 97535-GO; 99285-25; G0378; J7626